=== PATIENT | female | born 1985 | race African-American/Black ===

== ENCOUNTER 2019-05-19 09:11 | Inpatient (IN) | payer OTHER ==
[2019-05-19] MEDS ORDERED: SODIUM CHLORIDE 0.9% 1,000 ML IV STA ×2 (10:27)
[2019-05-19] MEDS ORDERED: methylPREDNISolone SOD SUCCI 125 MG/2 ML VIAL IV STA (10:27)
[2019-05-19] MEDS ORDERED: IPRATROPIUM-ALBUTEROL 3 ML NEB INHALATION STA (10:27)
[2019-05-19] MEDS ORDERED: ACETAMINOPHEN TAB 500 MG TAB PO STA (10:53)
[2019-05-19] MEDS ORDERED: cefTRIAXone IN SWFI 1,000 MG/10 ML SYRINGE IVP STA (10:55)
[2019-05-19] MEDS ORDERED: SODIUM CHLORIDE 0.9% 1,000 ML IV ONE (11:20)
[2019-05-19 11:30] LABS: Basophils # (A) 0.1 k/uL (0-0.2); Basophils % (A) 1 %; Eosinophils # (A) 0.1 k/uL (0-0.7); Eosinophils % (A) 1 %; HCT 38.6 % (34.0-46.0); HGB 12.5 gm/dL (11.4-16.0); Lymphocytes # (A) 1.4 k/uL (1.0-4.8); Lymphocytes % (A) 17 %; MCH 29.2 pg (25.0-35.0); MCHC 32.5 g/dL (31.0-37.0); MCV 89.8 fL (80.0-100.0); Mean Platelet Volume 6.4; Monocytes # (A) 0.6 k/uL (0-1.0); Monocytes % (A) 7 %; Neutrophils # (A) 5.9 k/uL (1.3-7.7); Neutrophils % (A) 72 %; Platelet Count 233 k/uL (150-450); RBC 4.29 m/uL (3.80-5.40); WBC 8.2 k/uL (3.8-10.6)
--- NOTE | 2019-05-19 11:30 | ED ---
General Adult HPI - General Chief complaint: Fever Stated complaint: fever, labored breathing Time Seen by Provider: 05/19/19 10:01 Source: RN notes reviewed, old records reviewed, Caregiver Mode of arrival: ambulatory Limitations: altered mental status - History of Present Illness Initial comments: Patient is a 34-year-old female. She presents emergency department today with her caregivers. She apparently woke up with the Patient had a fever of 104. She lives in a care facility. She has a history of severe cognitive delay. Patient is nonverbal. She's been congested and had a cough since this morning. She does take Clozaril, and her caregiver's report that she does drool often. They report that she's had a history of aspiration pneumonia in the past. Patient has had some labored breathing. Patient is noted to be short of breath with just walking short distances. - Related Data Home Medications Medication Instructions Recorded Confirmed Ammonium Lactate Cream [Lac-Hydrin 1 applic TOPICAL DAILY 05/19/19 05/19/19 12% Cream] Benzoyl Peroxide [Benzac AC Wash] 1 applic TOPICAL DAILY 05/19/19 05/19/19 Benztropine Mesylate [Cogentin] 1 mg PO HS 05/19/19 05/19/19 Cholecalciferol [Vitamin D3 (25 1,000 unit PO DAILY 05/19/19 05/19/19 Mcg = 1000 Iu)] Clindamycin Topical Soln 1 applic TOPICAL BID 05/19/19 05/19/19 [Cleocin-T Topical Soln] Divalproex ER [Depakote ER] 1,000 mg PO HS@2100 05/19/19 05/19/19 Divalproex ER [Depakote ER] 250 mg PO BID@0800,1600 05/19/19 05/19/19 Docusate Sodium [Dok] 100 mg PO DAILY 05/19/19 05/19/19 EPINEPHrine (Auto Inject) [Epipen] 0.3 mg IM ONCE PRN 05/19/19 05/19/19 Furosemide [Lasix] 40 mg PO DAILY 05/19/19 05/19/19 Insulin Glargine [Lantus] 24 unit SQ BID 05/19/19 05/19/19 L.acidoph,Paracasei, B.lactis 1 cap PO DAILY PRN 05/19/19 05/19/19 [Probiotic] LORazepam [Ativan] 0.5 mg PO DAILY@1330 05/19/19 05/19/19 LORazepam [Ativan] 0.5 mg PO Q4H PRN 05/19/19 05/19/19 Loratadine [Claritin] 10 mg PO DAILY 05/19/19 05/19/19 Metoprolol Tartrate [Lopressor] 25 mg PO DAILY 05/19/19 05/19/19 Minocycline HCl [Minocin] 100 mg PO DAILY@1600 05/19/19 05/19/19 Naltrexone HCl [Revia] 100 mg PO HS 05/19/19 05/19/19 Potassium Chloride [Klor-Con 20] 20 meq PO DAILY 05/19/19 05/19/19 Pravastatin Sodium [Pravachol] 40 mg PO HS 05/19/19 05/19/19 Propranolol [Inderal] 20 mg PO BID 05/19/19 05/19/19 cloZAPine [Clozaril] 100 mg PO HS 05/19/19 05/19/19 fluvoxaMINE [Luvox] 50 mg PO HS 05/19/19 05/19/19 medroxyPROGESTERone [Depo-Provera] 150 mg IM Q90D 05/19/19 05/19/19 metFORMIN HCL ER [Glucophage Xr] 500 mg PO AC-BID 05/19/19 05/19/19 sitaGLIPtin [Januvia] 100 mg PO DAILY 05/19/19 05/19/19 Allergies Allergy/AdvReac Type Severity Reaction Status Date / Time shellfish derived [Shellfish] Allergy Anaphylaxis Verified 05/19/19 10:01 Review of Systems ROS Statement: Those systems with pertinent positive or pertinent negative responses have been documented in the HPI. ROS Other: All systems not noted in ROS Statement are negative. Past Medical History Past Medical History: Diabetes Mellitus, Hypertension Additional Past Medical History / Comment(s): Severe interlectual disability History of Any Multi-Drug Resistant Organisms: MRSA Date of last positivie culture/infection: 2018 Additional Past Surgical History / Comment(s): Dental sx, recent boil I/D on left arm poss MRSA Past Psychological History: Bipolar Smoking Status: Never smoker Past Alcohol Use History: None Reported Past Drug Use History: None Reported General Exam - General Exam Comments Initial Comments: Appearing 34-year-old female. Patient is nonverbal. Mouth breathing. Evidence of accessory muscle use. Limitations: altered mental status General appearance: alert, in no apparent distress Head exam: Present: atraumatic, normocephalic, normal inspection Eye exam: Present: normal appearance, PERRL, EOMI. Absent: scleral icterus, conjunctival injection, periorbital swelling ENT exam: Present: normal exam Neck exam: Present: normal inspection. Absent: tenderness, meningismus, lymphadenopathy Respiratory exam: Present: other ( crackles and diminished lung sounds bilaterally.). Absent: normal lung sounds bilaterally, respiratory distress, wheezes, rales, rhonchi, stridor Cardiovascular Exam: Present: regular rate, normal rhythm, normal heart sounds. Absent: systolic murmur, diastolic murmur, rubs, gallop, clicks GI/Abdominal exam: Present: soft, normal bowel sounds. Absent: distended, tenderness, guarding, rebound, rigid Back exam: Present: normal inspection Neurological exam: Present: alert, oriented X3, CN II-XII intact Psychiatric exam: Present: normal affect, normal mood Course Vital Signs 05/19/19 05/19/19 05/19/19 09:21 09:26 10:44 Temperature 99.1 F Pulse Rate 118 H 112 H Respiratory 20 18 Rate Blood Pressure 95/53 O2 Sat by Pulse 93 L Oximetry 05/19/19 05/19/19 05/19/19 11:02 11:35 12:20 Temperature 99.1 F Pulse Rate 104 H 101 H 101 H Respiratory 20 16 Rate Blood Pressure 100/64 109/73 O2 Sat by Pulse 94 L 99 Oximetry Procedures - Sepsis Sepsis Focused Exam #1 Time Sepsis Criteria Met: 13:15 Sepsis Focused Exam Date: 05/19/19 Sepsis Focused Exam Time: 13:16 Sepsis Focused Exam Complete: Yes Vital Signs & RN Notes Reviewed: Yes Capillary Refill: < 2 Seconds: Fingers, Toes Peripheral Pulses: Normal: Posterior Tibialis (R), Posterior Tibialis (L), Dorsalis Pedis (R), Dorsalis Pedis (L) Skin Color: Normal for Patient Respiratory Exam: wheezes, decreased breath sounds Cardiovascular Exam: regular rate, normal rhythm Medical Decision Making - Medical Decision Making Patient's 34-year-old female history developmental delay, is nonverbal. She presents today with her caregivers erythema 104, cough congestion difficulty breathing. She does not have a fever 104 at this morning, and has had evidence of the assistant director of financial aid muscle use of breathing. Patient's low oxygen at 90% on room air earlier today at home. Upon arriving here without oxygen patient's oxygen saturation was 87-88% on room air. She is placed on 4 L nasal cannula does have improvement and is now 99% on room air. She had diminished lung sounds and crackles in bilateral lung [place]. Patient's caregivers she states she has had a history of drooling due to her medications and questions of the last time she was admitted for pneumonia it was related to aspiration. Her influenza test is negative. Patient's labwork was reviewed she has mild leukocytosis. She has an elevated lactic acid of 4.2. She was given 2 L bolus, this is ideal for patient's ideal body weight as Patient does meet sepsis criteria. P Focused sepsis exam was also completed. She was with given 1 g of Rocephin. He went to 3 mm DuoNeb treatments and does have improvement, and has no further accessory muscle use but continues or diminished lung sounds. Discussed the case with Dr. Rubio, and Patient will be admitted. Dr. Fierro was informed of the admission. Patient's givers report the Patient does need to have a sitter as when she becomes healthier and more active she does pull at her IV sites mechanical equipment in the reports the Patient has always had have a sitter when admitted to the hospital. - Lab Data Result diagrams: 05/19/19 11:09 05/19/19 11:09 Lab Results 05/19/19 05/19/19 05/19/19 Range/Units 11:09 11:09 11:09 WBC 8.2 (3.8-10.6) k/uL RBC 4.29 (3.80-5.40) m/uL Hgb 12.5 (11.4-16.0) gm/dL Hct 38.6 (34.0-46.0) % MCV 89.8 (80.0-100.0) fL MCH 29.2 (25.0-35.0) pg MCHC 32.5 (31.0-37.0) g/dL RDW 15.0 (11.5-15.5) % Plt Count 233 (150-450) k/uL Neutrophils % 72 % Lymphocytes % 17 % Monocytes % 7 % Eosinophils % 1 % Basophils % 1 % Neutrophils # 5.9 (1.3-7.7) k/uL Lymphocytes # 1.4 (1.0-4.8) k/uL Monocytes # 0.6 (0-1.0) k/uL Eosinophils # 0.1 (0-0.7) k/uL Basophils # 0.1 (0-0.2) k/uL PT 10.5 (9.0-12.0) sec INR 1.0 (<1.2) APTT 24.9 (22.0-30.0) sec Sodium 140 (137-145) mmol/L Potassium 4.1 (3.5-5.1) mmol/L Chloride 102 (98-107) mmol/L Carbon Dioxide 26 (22-30) mmol/L Anion Gap 12 mmol/L BUN 15 (7-17) mg/dL Creatinine 0.97 (0.52-1.04) mg/dL Est GFR (CKD-EPI)AfAm 90 (>60 ml/min/1.73 sqM) Est GFR (CKD-EPI)NonAf 78 (>60 ml/min/1.73 sqM) Glucose 195 H (74-99) mg/dL Plasma Lactic Acid Anil (0.7-2.0) mmol/L Calcium 9.3 (8.4-10.2) mg/dL Total Bilirubin 0.2 (0.2-1.3) mg/dL AST 17 (14-36) U/L ALT 9 (9-52) U/L Alkaline Phosphatase 60 (38-126) U/L Troponin I (0.000-0.034) ng/mL NT-Pro-B Natriuret Pep pg/mL Total Protein 7.5 (6.3-8.2) g/dL Albumin 3.7 (3.5-5.0) g/dL Urine Color Urine Appearance (Clear) Urine pH (5.0-8.0) Ur Specific Crawford (1.001-1.035) Urine Protein (Negative) Urine Glucose (UA) (Negative) Urine Ketones (Negative) Urine Blood (Negative) Urine Nitrite (Negative) Urine Bilirubin (Negative) Urine Urobilinogen (<2.0) mg/dL Ur Leukocyte Esterase (Negative) Influenza Type A RNA (Not Detectd) Influenza Type B (PCR) (Not Detectd) 05/19/19 05/19/19 05/19/19 Range/Units 11:09 11:09 11:09 WBC (3.8-10.6) k/uL RBC (3.80-5.40) m/uL Hgb (11.4-16.0) gm/dL Hct (34.0-46.0) % MCV (80.0-100.0) fL MCH (25.0-35.0) pg MCHC (31.0-37.0) g/dL RDW (11.5-15.5) % Plt Count (150-450) k/uL Neutrophils % % Lymphocytes % % Monocytes % % Eosinophils % % Basophils % % Neutrophils # (1.3-7.7) k/uL Lymphocytes # (1.0-4.8) k/uL Monocytes # (0-1.0) k/uL Eosinophils # (0-0.7) k/uL Basophils # (0-0.2) k/uL PT (9.0-12.0) sec INR (<1.2) APTT (22.0-30.0) sec Sodium (137-145) mmol/L Potassium (3.5-5.1) mmol/L Chloride (98-107) mmol/L Carbon Dioxide (22-30) mmol/L Anion Gap mmol/L BUN (7-17) mg/dL Creatinine (0.52-1.04) mg/dL Est GFR (CKD-EPI)AfAm (>60 ml/min/1.73 sqM) Est GFR (CKD-EPI)NonAf (>60 ml/min/1.73 sqM) Glucose (74-99) mg/dL Plasma Lactic Acid Anil 4.2 H* (0.7-2.0) mmol/L Calcium (8.4-10.2) mg/dL Total Bilirubin (0.2-1.3) mg/dL AST (14-36) U/L ALT (9-52) U/L Alkaline Phosphatase (38-126) U/L Troponin I <0.012 (0.000-0.034) ng/mL NT-Pro-B Natriuret Pep 340 pg/mL Total Protein (6.3-8.2) g/dL Albumin (3.5-5.0) g/dL Urine Color Urine Appearance (Clear) Urine pH (5.0-8.0) Ur Specific Crawford (1.001-1.035) Urine Protein (Negative) Urine Glucose (UA) (Negative) Urine Ketones (Negative) Urine Blood (Negative) Urine Nitrite (Negative) Urine Bilirubin (Negative) Urine Urobilinogen (<2.0) mg/dL Ur Leukocyte Esterase (Negative) Influenza Type A RNA (Not Detectd) Influenza Type B (PCR) (Not Detectd) 05/19/19 05/19/19 Range/Units 12:00 12:00 WBC (3.8-10.6) k/uL RBC (3.80-5.40) m/uL Hgb (11.4-16.0) gm/dL Hct (34.0-46.0) % MCV (80.0-100.0) fL MCH (25.0-35.0) pg MCHC (31.0-37.0) g/dL RDW (11.5-15.5) % Plt Count (150-450) k/uL Neutrophils % % Lymphocytes % % Monocytes % % Eosinophils % % Basophils % % Neutrophils # (1.3-7.7) k/uL Lymphocytes # (1.0-4.8) k/uL Monocytes # (0-1.0) k/uL Eosinophils # (0-0.7) k/uL Basophils # (0-0.2) k/uL PT (9.0-12.0) sec INR (<1.2) APTT (22.0-30.0) sec Sodium (137-145) mmol/L Potassium (3.5-5.1) mmol/L Chloride (98-107) mmol/L Carbon Dioxide (22-30) mmol/L Anion Gap mmol/L BUN (7-17) mg/dL Creatinine (0.52-1.04) mg/dL Est GFR (CKD-EPI)AfAm (>60 ml/min/1.73 sqM) Est GFR (CKD-EPI)NonAf (>60 ml/min/1.73 sqM) Glucose (74-99) mg/dL Plasma Lactic Acid Anil (0.7-2.0) mmol/L Calcium (8.4-10.2) mg/dL Total Bilirubin (0.2-1.3) mg/dL AST (14-36) U/L ALT (9-52) U/L Alkaline Phosphatase (38-126) U/L Troponin I (0.000-0.034) ng/mL NT-Pro-B Natriuret Pep pg/mL Total Protein (6.3-8.2) g/dL Albumin (3.5-5.0) g/dL Urine Color Light Yellow Urine Appearance Clear (Clear) Urine pH 5.0 (5.0-8.0) Ur Specific [place] 1.008 (1.001-1.035) Urine Protein Negative (Negative) Urine Glucose (UA) Negative (Negative) Urine Ketones Negative (Negative) Urine Blood Negative (Negative) Urine Nitrite Negative (Negative) Urine Bilirubin Negative (Negative) Urine Urobilinogen <2.0 (<2.0) mg/dL Ur Leukocyte Esterase Negative (Negative) Influenza Type A RNA Not Detected (Not Detectd) Influenza Type B (PCR) Not Detected (Not Detectd) 05/19/19 13:42 EKG shows sinus tachycardia, T wave adamantly considered. Ischemia, T-wave adamantly can Center anterolateral ischemia. Abnormal EKG noted. Ventricular rate 105 bpm. Intervals 174 ms. QS duration is 94 ms. - Radiology Data Radiology results: report reviewed Correlate for pneumonia component edema. Cardiac megaly. Follow up recommended. Expiratory rotated exam. Critical Care Time Critical Care Time: Yes Total Critical Care Time: 30 Disposition Clinical Impression: Sepsis, Pneumonia, Developmental delay, profound, Developmental non-verbal disorder Disposition: ADMITTED IP TO THIS [facility] Condition: Stable Is patient prescribed a controlled substance at d/c from ED?: No Referrals: Emeterio Dean MD [Primary Care Provider] - 1-2 days Time of Disposition: 13:42
[2019-05-19 11:37] LABS: Albumin 3.7 g/dL (3.5-5.0); Calcium 9.3 mg/dL (8.4-10.2); Potassium 4.1 mmol/L (3.5-5.1); Total Bilirubin 0.2 mg/dL (0.2-1.3); Total Protein 7.5 g/dL (6.3-8.2)
[2019-05-19 11:52] LABS: Partial Thromboplastin Time 24.9 sec (22.0-30.0); Prothrombin Time 10.5 sec (9.0-12.0)
--- NOTE | 2019-05-19 12:01 | XR ---
EXAMINATION TYPE: XR chest 2V DATE OF EXAM: 05/19/2019 COMPARISON: NONE HISTORY: Difficulty breathing, shortness of breath and fever TECHNIQUE: Frontal and lateral views of the chest are obtained. FINDINGS: Bilateral airspace disease is present. Lung volumes are low and the patient is rotated. No evident pneumothorax or pleural effusion. Heart is enlarged. There are overlying cardiac leads. IMPRESSION: Correlate for pneumonia, pulmonary edema. There is cardiomegaly. Follow-up recommended. Expiratory rotated exam.
[2019-05-19 12:29] LABS: Appearance,Urine Clear (Clear); Bilirubin,Urine Negative (Negative); Blood,Urine Negative (Negative); Color,Urine Light Yellow; Glucose,Urine (UA) Negative (Negative); Ketones,Urine Negative (Negative); Leukocyte Esterase,Urine Negative (Negative); Nitrite,Urine Negative (Negative); Protein,Urine Negative (Negative); Specific Gravity,Urine 1.008 (1.001-1.035); Urobilinogen,Urine <2.0 mg/dL (<2.0)
[2019-05-19] MEDS ORDERED: PNEUMONIA PROTOCOL UTILIZED 1 EACH MISC PO PRN (13:43)
[2019-05-19] MEDS ORDERED: IPRATROPIUM-ALBUTEROL 3 ML NEB INHALATION PRN (13:43)
[2019-05-19] MEDS ORDERED: AZITHROMYCIN 500 MG in SODIUM CHLORIDE 0.9% 250 ML IVPB STA (13:43)
[2019-05-19 17:11] LABS: Glucose,Whole Blood 156 mg/dL (75-99)
[2019-05-19] MEDS ORDERED: LORazepam 0.5 MG TAB PO PRN (18:06)
[2019-05-19 20:07] LABS: Glucose,Whole Blood 224 mg/dL (75-99)
[2019-05-19] MEDS: cloZAPine 100 MG TAB PO SCH (21:20)
[2019-05-19] MEDS: DIVALPROEX ER 500 MG TAB.ER.24H PO SCH (21:20)
[2019-05-19] MEDS: INSULIN DETEMIR (LEVEMIR) 100 UNIT/ML SYR SQ SCH (21:20)
[2019-05-19] MEDS: NALTREXONE HCL 50 MG TAB PO SCH (21:20)
[2019-05-19] MEDS: PRAVASTATIN SODIUM 40 MG TAB PO SCH (21:20)
[2019-05-19] MEDS: BENZTROPINE MESYLATE 1 MG TAB PO SCH (21:20)
[2019-05-19] MEDS: SODIUM CHLORIDE 0.9% 1,000 ML IV SCH (21:27)
[2019-05-19] MEDS: PROPRANOLOL 20 MG TAB PO SCH (21:29)
[2019-05-20] MEDS: SODIUM CHLORIDE 0.9% 1,000 ML IV SCH ×3 (05:40→12:51)
[2019-05-20 06:54] LABS: Glucose,Whole Blood 234 mg/dL (75-99)
[2019-05-20] MEDS: METOPROLOL TARTRATE 25 MG TAB PO SCH (09:05)
[2019-05-20] MEDS: INSULIN DETEMIR (LEVEMIR) 100 UNIT/ML SYR SQ SCH ×2 (09:05→21:20)
[2019-05-20] MEDS: DOCUSATE 100 MG CAP PO SCH (09:05)
[2019-05-20] MEDS: LINAGLIPTIN 5 MG TABLET PO SCH (09:06)
[2019-05-20] MEDS: DIVALPROEX ER 250 MG TAB.ER.24H PO SCH ×2 (09:06→17:22)
[2019-05-20] MEDS: PROPRANOLOL 20 MG TAB PO SCH ×2 (09:06→21:20)
[2019-05-20] MEDS: BENZOYL PEROXIDE TOPICAL SCH (09:06)
[2019-05-20] MEDS: AMMONIUM LACTATE 12% CREAM 140 GM TUBE TOPICAL SCH (10:39)
[2019-05-20 11:47] LABS: Glucose,Whole Blood 200 mg/dL (75-99)
[2019-05-20] MEDS: LORazepam 0.5 MG TAB PO SCH (12:39)
[2019-05-20] MEDS: INSULIN ASPART (NovoLOG) 100 UNIT/ML VIAL SQ SCH ×3 (12:39→21:19)
--- NOTE | 2019-05-20 13:04 | P.HPIM ---
History of Present Illness H&P Date: 05/20/19 Chief Complaint: Fever 104 This is a 34-year-old female patient of Dr. Dean with past medical history of diabetes mellitus type 2, hypertension, autism, OCD, bipolar, severe intellectual disability, history of MRSA. Patient lives at [facility] and has a public guardian. Patient was brought in by her caregivers yesterday to the emergency center because she had a temperature of 104 and some mild labored breathing with increased dyspnea on exertion when she got up yesterday morning. Pulse ox was checked at the care home and was low at 90%. She does have history of aspiration pneumonia in the past. CBC and comp metabolic panel unremarkable. Blood sugar 195, initial lactic acid 4.2, troponin and negative now on 2 draws. Urinalysis clear with nitrate and leukoesterase negative. Influenza testing negative. Repeat lactic acid this morning 1.8. Pulse ox 8788% on room air and patient was placed on 4 L nasal cannula with improvement of her oxygenation to 99%. Temperature was 99.1 with tachycardia and blood pressure 95/53. Chest x-ray correlate for pneumonia, pulmonary edema. There is cardiomegaly. Patient was given 2 L of IV fluid b olus and started on Rocephin, nebulizer treatments. EKG sinus rhythm with nonspecific ST changes for which echocardiogram has been ordered. Blood sugars are elevated and metformin will not be resumed as lactic acid is normalized and insulin long-acting will be increased. There is a consult in place for pulmonary medicine. Blood cultures in process. Sputum cultures been unobtainable. Review of Systems ROS unobtainable: due to mental status Constitutional: Reports fever Past Medical History Past Medical History: Diabetes Mellitus, Hypertension Additional Past Medical History / Comment(s): Autistic, OCD, Bipolar 1, Severe intellectual disability History of Any Multi-Drug Resistant Organisms: None Reported Date of last positivie culture/infection: 2018 Additional Past Surgical History / Comment(s): Dental sx, recent boil I/D to left axilla 03/2019 Past Anesthesia/Blood Transfusion Reactions: No Reported Reaction Past Psychological History: Bipolar Additional Psychological History / Comment(s): Autistic, OCD, Bipolar 1. Patient resides at [facility] and has a public guardian. Smoking Status: Never smoker Past Alcohol Use History: None Reported Past Drug Use History: None Reported - Past Family History Mother Family Medical History: Unable to Obtain Father Family Medical History: Unable to Obtain Medications and Allergies Home Medications Medication Instructions Recorded Confirmed Type Ammonium Lactate Cream [Lac-Hydrin 1 applic TOPICAL DAILY 05/19/19 05/19/19 History 12% Cream] Benzoyl Peroxide [Benzac AC Wash] 1 applic TOPICAL DAILY 05/19/19 05/19/19 History Benztropine Mesylate [Cogentin] 1 mg PO HS 05/19/19 05/19/19 History Cholecalciferol [Vitamin D3 (25 1,000 unit PO DAILY 05/19/19 05/19/19 History Mcg = 1000 Iu)] Clindamycin Topical Soln 1 applic TOPICAL BID 05/19/19 05/19/19 History [Cleocin-T Topical Soln] Divalproex ER [Depakote ER] 1,000 mg PO HS@2100 05/19/19 05/19/19 History Divalproex ER [Depakote ER] 250 mg PO BID@0800,1600 05/19/19 05/19/19 History Docusate Sodium [Dok] 100 mg PO DAILY 05/19/19 05/19/19 History EPINEPHrine (Auto Inject) [Epipen] 0.3 mg IM ONCE PRN 05/19/19 05/19/19 History Furosemide [Lasix] 40 mg PO DAILY 05/19/19 05/19/19 History Insulin Glargine [Lantus] 24 unit SQ BID 05/19/19 05/19/19 History L.acidoph,Paracasei, B.lactis 1 cap PO DAILY PRN 05/19/19 05/19/19 History [Probiotic] LORazepam [Ativan] 0.5 mg PO DAILY@1330 05/19/19 05/19/19 History LORazepam [Ativan] 0.5 mg PO Q4H PRN 05/19/19 05/19/19 History Loratadine [Claritin] 10 mg PO DAILY 05/19/19 05/19/19 History Metoprolol Tartrate [Lopressor] 25 mg PO DAILY 05/19/19 05/19/19 History Minocycline HCl [Minocin] 100 mg PO DAILY@1600 05/19/19 05/19/19 History Naltrexone HCl [Revia] 100 mg PO HS 05/19/19 05/19/19 History Potassium Chloride [Klor-Con 20] 20 meq PO DAILY 05/19/19 05/19/19 History Pravastatin Sodium [Pravachol] 40 mg PO HS 05/19/19 05/19/19 History Propranolol [Inderal] 20 mg PO BID 05/19/19 05/19/19 History cloZAPine [Clozaril] 100 mg PO HS 05/19/19 05/19/19 History fluvoxaMINE [Luvox] 50 mg PO HS 05/19/19 05/19/19 History medroxyPROGESTERone [Depo-Provera] 150 mg IM Q90D 05/19/19 05/19/19 History metFORMIN HCL ER [Glucophage Xr] 500 mg PO AC-BID 05/19/19 05/19/19 History sitaGLIPtin [Januvia] 100 mg PO DAILY 05/19/19 05/19/19 History Allergies Allergy/AdvReac Type Severity Reaction Status Date / Time shellfish derived [Shellfish] Allergy Anaphylaxis Verified 05/19/19 10:01 Physical Exam Vitals: Vital Signs Temp Pulse Pulse Resp BP BP Pulse Ox 05/20/19 05:39 90 L 05/20/19 05:00 98.0 F 101 H 20 117/60 88 L 05/19/19 21:44 98.9 F 107 H 16 119/75 91 L 05/19/19 19:13 92 L 05/19/19 15:55 99.4 F 05/19/19 15:29 92 18 122/79 97 05/19/19 12:20 101 H 16 109/73 99 Intake and Output 05/19/19 05/20/19 05/20/19 22:59 06:59 14:59 Intake Total 2790 800 Balance 2790 800 Intake: Amount of Fluid Infused ( 2200 ml) Intake, IV Titration 800 Amount Sodium Chloride 0.9% 1, 800 000 ml @ 100 mls/hr IV . Q10H [facility] Rx#:[id number] Oral 590 Other: Voiding Method Diaper Diaper Incontinent Incontinent # Voids 2 1 Gen: This is an obese 34-year-old female. She is sitting up in bed with a sitter at the bedside. She appears to be in no acute respiratory distress. Harsh cough is noted. HEENT: Head is atraumatic, normocephalic. Pupils equal, round. Sclerae is anicteric. NECK: Supple. No JVD. No lymphadenopathy. No thyromegaly. LUNGS: Diminished bilaterally with crackles. No intercostal retractions. HEART: Regular rate and rhythm. No murmur. ABDOMEN: Soft. Bowel sounds are present. No masses. No tenderness. EXTREMITIES: 1+ bilateral pedal edema. No calf tenderness. NEUROLOGICAL: Patient is awake, alert. Patient is able to follow simple commands.. Results CBC & Chem 7: 05/19/19 11:09 05/19/19 11:09 Labs: Abnormal Lab Results - Last 24 Hours (Table) 05/19/19 05/19/19 05/19/19 Range/Units 14:00 17:07 18:34 POC Glucose (mg/dL) 156 H (75-99) mg/dL Plasma Lactic Acid Anil 2.6 H* 3.9 H* (0.7-2.0) mmol/L 05/19/19 05/19/19 05/20/19 Range/Units 20:06 22:27 02:23 POC Glucose (mg/dL) 224 H (75-99) mg/dL Plasma Lactic Acid Anil 3.6 H* 2.5 H* (0.7-2.0) mmol/L 05/20/19 05/20/19 Range/Units 06:53 11:46 POC Glucose (mg/dL) 234 H 200 H (75-99) mg/dL Plasma Lactic Acid Anil (0.7-2.0) mmol/L Thrombosis Risk Factor Assmnt - DVT/VTE Prophylaxis DVT/VTE Prophylaxis: Pharmacologic Prophylaxis ordered - Choose All That Apply Any of the Below Risk Factors Present?: Yes Each Factor Represents 1 point: Obesity (BMI >25), Swollen legs (current) Other Risk Factors: No Other congenital or acquired thrombophilia - If yes, enter type in comment: No Thrombosis Risk Factor Assessment Total Risk Factor Score: 2 Thrombosis Risk Factor Assessment Level: Low Risk Assessment and Plan Plan: 1. Pneumonia with sepsis and lactic acidosis. Patient started on ceftriaxone and received 1 dose of azithromycin in the emergency center, continue DuoNeb treatments every 4 hours as needed, consult pulmonary medicine. Decrease IV fluids to 50 mL per hour. 2. Diabetes mellitus type 2, uncontrolled with hyperglycemia secondary to steroids. Metformin may be resumed as lactic acidosis has resolved. Continue Tradjenta 5 mg daily, increase Levemir to 30 units twice daily and add NovoLog scale before meals and at bedtime. 3. Hypertension. Continue Lopressor 25 mg daily, propranolol 20 mg twice daily. 4. Autism, OCD, bipolar, severe intellectual disability. Continue sitter at the bedside. Continue Cogentin 1 mg at bedtime, Depakote ER at home dose, Ativan 0.5 mg daily at 1330 and every 4 hours as needed, naltrexone 100 mg at bedtime, fluvoxamine 50 mg at bedtime. 5. Hyperlipidemia. Continue pravastatin 40 mg at bedtime. 6. DVT prophylaxis. Lovenox. 7. GI prophylaxis. Pepcid. Patient will be admitted to the hospital for a minimum of 2 night stay. Discharge plan: Return to [facility]. Impression and plan of care have been directed as dictated by the signing physician. Eli Brown nurse practitioner acting as scribe for signing physician.
[2019-05-20 16:38] LABS: Glucose,Whole Blood 292 mg/dL (75-99)
[2019-05-20] MEDS: MINOCYCLINE 50 MG CAP PO SCH (17:21)
[2019-05-20] MEDS: metFORMIN 500 MG TAB PO SCH (17:21)
--- NOTE | 2019-05-20 20:55 | CONS ---
CONSULTATION DATE OF CONSULTATION: May 20, 2019 This is a 34-year-old Black female who has severe mental impairment. She apparently lives at an extended care facility. She is apparently accompanied by her caregiver. She apparently noticed one day prior to admission that the patient apparently had some difficulty breathing. She was coughing and had chest congestion. She also had a temperature of 104 degrees. The patient herself is nonverbal. All the history is obtained from the caregiver. In addition, she apparently states that there was another member at the house who was also ill. Anyway, the patient was seen in the emergency room and admitted with a diagnosis of possible aspiration pneumonia. Her primary care provider is Dr. Emeterio Dean. Again, no history can be obtained from the patient herself. She was on oxygen when she first came in. That has been weaned off. She looks relatively comfortable. She was actually sleeping. She was lying on her left side. She appeared to be no distress. There is no audible wheezing or significant cough while I was in the room. MEDICATIONS: Extensive and include Lac-Hydrin lotion, Benzac AC wash, Cogentin, vitamin D3, clindamycin topical solution, Depakote ER, Colace, EpiPen, Lasix, Lantus insulin, probiotic, Ativan, Claritin, metoprolol, Minocin, naltrexone, potassium chloride, pravastatin, propranolol, Clozaril, Luvox, Depo-Provera, metformin and Januvia. ALLERGIES: APPARENTLY SHELLFISH. MEDICAL HISTORY: His medical history is extensive and includes hypertension, diabetes, seizure disorder, severe intellectual disability, previous MRSA infection, multiple boils and infections underneath her arms with previous MRSA infection, bipolar disorder, constipation, anxiety, hypertension, diabetes, and hyperlipidemia. Again, the history may be incomplete as the history is obtained primarily from the ER sobia and also from the caregiver. SURGICAL HISTORY: Includes a dental surgery and incision and drainage of a boil underneath the left arm. SOCIAL HISTORY: Negative tobacco, alcohol or illicit drug use. FAMILY HISTORY: Family history is not known. The patient could not provide anything acute. REVIEW OF SYSTEMS: CONSTITUTIONAL: Fever of 104. NEUROLOGIC negative. HEENT: Drooling. CARDIOVASCULAR negative. PULMONARY: Shortness of breath, cough, chest congestion. GI negative. negative. RHEUMATOLOGIC negative. IMMUNOLOGIC negative. ENDOCRINOLOGIC negative. DERMATOLOGIC negative. PHYSICAL EXAMINATION: VITAL SIGNS: Current vital signs are reviewed. Her temperature is 98, T-max is 99.1. Her heart rate 93, respiratory rate 18, blood pressure 117/65 mean 82. Room air saturation 94%. She appears in no acute distress. There is no audible wheezing or any signs of respiratory distress. HEENT examination is grossly unremarkable. No supplemental oxygen. NECK: Supple. Full range of motion. No adenopathy. CARDIOVASCULAR examination reveals regular rhythm and rate. Heart rate in the high 80s, low 90s. S1, S2 normal. Heart sounds are distant. LUNGS: Reveal some diffuse bilateral rhonchi. No wheezes. A few crackles are appreciated. The patient does not really take deep breaths. Breath sounds are equal bilaterally. ABDOMEN: Obese. Bowel sounds are heard. EXTREMITIES are intact. No significant edema. SKIN: Without rash. NEUROLOGIC: Examination could not be adequately evaluated. LABORATORY DATA: Reviewed. White count 8.2, hemoglobin 12.5, hematocrit 38.6, platelet count 233,000. PT/INR PTT all normal. Sodium 140, potassium 4.1, chloride 102, CO2 26, anion gap is 12, BUN and creatinine were 15 and 0.97. Glucose is 195. Lactic acid is 3.6, Troponins were negative x2. N terminal proBNP is 340. Urine was negative. Influenza screen for both A and B were negative. Chest x-ray is difficult to interpret because the patient's body habitus. There is bilateral airspace disease. Lung volumes are low. There is no evident pneumothorax or pleural effusions. Heart is enlarged. The rest of the examination is really not significant. Again, the quality of the x-ray given her body habitus is poor. Her medications are reviewed. Medications appear to be appropriate. ASSESSMENT: 1. Bilateral pneumonia, which may relate to underlying aspiration. 2. Fever, cough, chest congestion and labored breathing all secondary to #1. 3. History of diabetes mellitus. 4. Hypertension. 5. Hyperlipidemia. 6. History of seizure disorder. 7. Obesity. 8. Significant mental delay/cognitive impairment. 9. Previous history of MRSA infection. 10.Recurrent boils and infection underneath the arm. PLAN: Currently the patient is on appropriate medications. She is already significantly improved. She has been weaned off oxygen. Her saturations are mid 90s. Her chest x- ray does show diffuse bilateral infiltrates. Some of this could relate to body habitus. Cultures are pending. Additional recommendations and suggestions are forthcoming. Medications are reviewed. She seems to be in no respiratory distress at this time. We will continue to follow. MMODL / IJN: [id number] / MTDD
[2019-05-20 21:12] LABS: Glucose,Whole Blood 290 mg/dL (75-99)
[2019-05-20] MEDS: BENZTROPINE MESYLATE 1 MG TAB PO SCH (21:18)
[2019-05-20] MEDS: DIVALPROEX ER 500 MG TAB.ER.24H PO SCH (21:19)
[2019-05-20] MEDS: cloZAPine 100 MG TAB PO SCH (21:19)
[2019-05-20] MEDS: NALTREXONE HCL 50 MG TAB PO SCH (21:20)
[2019-05-20] MEDS: PRAVASTATIN SODIUM 40 MG TAB PO SCH (21:20)
--- NOTE | 2019-05-20 23:08 | XR ---
EXAMINATION TYPE: XR chest 2V DATE OF EXAM: 05/20/2019 COMPARISON: Chest x-ray one day ago. HISTORY: Pneumonia. TECHNIQUE: Frontal and lateral views of the chest are obtained. FINDINGS: There are multifocal bilateral opacities redemonstrated. No large pleural effusion or pne umothorax seen bilaterally. The cardiac silhouette size is stable and mildly enlarged. The osseous structures are intact. IMPRESSION: Mild cardiomegaly with bilateral multifocal multilobar acute infiltrates. No significant change from one day earlier.
[2019-05-21 07:15] LABS: Glucose,Whole Blood 159 mg/dL (75-99)
[2019-05-21] MEDS: INSULIN ASPART (NovoLOG) 100 UNIT/ML VIAL SQ SCH ×4 (08:25→21:19)
[2019-05-21] MEDS: METOPROLOL TARTRATE 25 MG TAB PO SCH (08:25)
[2019-05-21] MEDS: metFORMIN 500 MG TAB PO SCH ×2 (08:25→17:01)
[2019-05-21] MEDS: DOCUSATE 100 MG CAP PO SCH (08:25)
[2019-05-21] MEDS: FAMOTIDINE 20 MG TAB PO SCH (08:25)
[2019-05-21] MEDS: ENOXAPARIN 40 MG/0.4 ML SYRINGE SQ SCH (08:26)
[2019-05-21] MEDS: LINAGLIPTIN 5 MG TABLET PO SCH (08:27)
[2019-05-21] MEDS: PROPRANOLOL 20 MG TAB PO SCH ×2 (08:27→21:17)
[2019-05-21] MEDS: INSULIN DETEMIR (LEVEMIR) 100 UNIT/ML SYR SQ SCH ×2 (08:27→21:19)
[2019-05-21] MEDS: DIVALPROEX ER 250 MG TAB.ER.24H PO SCH ×2 (08:28→17:01)
[2019-05-21] MEDS: BENZOYL PEROXIDE TOPICAL SCH (08:29)
[2019-05-21] MEDS: SODIUM CHLORIDE 0.9% 1,000 ML IV SCH (08:29)
[2019-05-21 08:59] LABS: Basophils % (A) 0 %; Eosinophils # (A) 0.1 k/uL (0-0.7); Eosinophils % (A) 1 %; HCT 33.2 % (34.0-46.0); HGB 10.4 gm/dL (11.4-16.0); Hypochromasia Moderate; Lymphocytes # (A) 2.3 k/uL (1.0-4.8); Lymphocytes % (A) 26 %; MCHC 31.2 g/dL (31.0-37.0); MCV 92.8 fL (80.0-100.0); Mean Platelet Volume 6.3; Monocytes # (A) 0.4 k/uL (0-1.0); Monocytes % (A) 4 %; Neutrophils % (A) 67 %; Platelet Count 219 k/uL (150-450); RBC 3.58 m/uL (3.80-5.40)
[2019-05-21] MEDS: AMMONIUM LACTATE 12% CREAM 140 GM TUBE TOPICAL SCH (10:40)
--- NOTE | 2019-05-21 11:33 | ECHOF ---
Referral Reason:LVF MEASUREMENTS -------- HEIGHT: 172.7 cm WEIGHT: 98.4 kg BP: 117/60 RVIDd: 2.7 cm (< 3.3) IVSd: 1.3 cm (0.6 - 1.1) LVIDd: 4.1 cm (3.9 - 5.3) LVPWd: 1.3 cm (0.6 - 1.1) IVSs: 1.6 cm LVIDs: 2.9 cm LVPWs: 1.6 cm LA Diam: 3.3 cm (2.7 - 3.8) Ao Diam: 2.9 cm (2.0 - 3.7) AV Cusp: 2.0 cm (1.5 - 2.6) MV EXCURSION: 15.892 mm (> 18.000) MV EF SLOPE: 62 mm/s (70 - 150) EPSS: 0.8 cm MV E George: 1.29 m/s MV DecT: 185 ms MV A George: 1.16 m/s MV E/A Ratio: 1.11 FINDINGS -------- Sinus rhythm. This was a technically adequate study. The left ventricular size is normal. There is mild concentric left ventricular hypertrophy. Overa ll left ventricular systolic function is normal with, an EF between 60 - 65 %. The diastolic fillin g pattern is normal for the age of the patient 13.82. The right ventricle is normal in size. Normal LA size by volume 22+/-6 ml/m2. The right atrium is normal in size. The aortic valve is trileaflet and appears structurally normal. The mitral valve is normal. Trace tricuspid regurgitation present. The pulmonic valve was not well visualized. The aortic root size is normal. Normal inferior vena cava with normal inspiratory collapse consistent with estimated right atrial pre ssure of 5 mmHg. There is no pericardial effusion. CONCLUSIONS -------- 1. Sinus rhythm. 2. This was a technically adequate study. 3. The left ventricular size is normal. 4. There is mild concentric left ventricular hypertrophy. 5. Overall left ventricular systolic function is normal with, an EF between 60 - 65 %. 6. The diastolic filling pattern is normal for the age of the patient 13.82 7. The right ventricle is normal in size. 8. Normal LA size by volume 22+/-6 ml/m2. 9. The right atrium is normal in size. 10. The aortic valve is trileaflet and appears structurally normal. 11. The mitral valve is normal. 12. Trace tricuspid regurgitation present. 13. The pulmonic valve was not well visualized. 14. The aortic root size is normal. 15. Normal inferior vena cava with normal inspiratory collapse consistent with estimated right atrial pressure of 5 mmHg. 16. There is no pericardial effusion. HEALTH AND SAFETY COORDINATOR: CESAR Nazario
[2019-05-21 11:49] LABS: Glucose,Whole Blood 114 mg/dL (75-99)
--- NOTE | 2019-05-21 12:00 | P.PN ---
Subjective Progress Note Date: 05/21/19 Principal diagnosis: Bilateral pneumonia possibly aspiration. Patient is seen today 05/21/2019 in follow-up on the regular medical floor. She does open her eyes to questioning but remains nonverbal. She continues with a loose nonproductive cough. She is maintaining O2 saturation low 90s on room air. Currently afebrile. Hemodynamically stable. Blood culture reveals no kathie wth to date. White count 9.0. Hemoglobin 10.4. She is currently on ceftriaxone, minocycline. Add azithromycin. Objective - Vital Signs Vital signs: Vital Signs Temp 98.9 F 05/21/19 05:00 Pulse 91 05/20/19 20:55 Resp 16 05/21/19 05:00 BP 120/62 05/21/19 05:00 Pulse Ox 92 L 05/21/19 05:00 Intake & Output 05/20/19 05/21/19 05/21/19 18:59 06:59 18:59 Intake Total 575 Balance 575 Intake: Intake, IV Titration 575 Amount Sodium Chloride 0.9% 1, 575 000 ml @ 50 mls/hr IV . Q20H [facility] Rx#:[id number] Other: Voiding Method Diaper Diaper Diaper Incontinent Incontinent Incontinent # Voids 3 # Bowel Movements 1 - Exam GENERAL EXAM: Alert, nonverbal 34-year-old female patient, comfortable in no apparent distress. On room air. HEAD: Normocephalic. EYES: Normal reaction of pupils, equal size. NOSE: Clear with pink turbinates. THROAT: No erythema or exudates. NECK: No masses, no JVD. CHEST: No chest wall deformity. LUNGS: Equal air entry with bilateral scattered rhonchi. CVS: S1 and S2 normal with no audible murmur, regular rhythm. ABDOMEN: No hepatosplenomegaly, normal bowel sounds, no guarding or rigidity. SPINE: No scoliosis or deformity SKIN: No rashes CENTRAL NERVOUS SYSTEM: Tone is normal in all 4 extremities. EXTREMITIES: There is no peripheral edema. No clubbing, no cyanosis. Perip heral pulses are intact. - Labs CBC & Chem 7: 05/21/19 08:33 05/19/19 11:09 Labs: Abnormal Lab Results - Last 24 Hours (Table) 05/20/19 05/20/19 05/21/19 Range/Units 16:37 21:00 07:12 RBC (3.80-5.40) m/uL Hgb (11.4-16.0) gm/dL Hct (34.0-46.0) % POC Glucose (mg/dL) 292 H 290 H 159 H (75-99) mg/dL 05/21/19 05/21/19 Range/Units 08:33 11:48 RBC 3.58 L (3.80-5.40) m/uL Hgb 10.4 L (11.4-16.0) gm/dL Hct 33.2 L (34.0-46.0) % POC Glucose (mg/dL) 114 H (75-99) mg/dL Microbiology - Last 24 Hours (Table) 05/19/19 11:09 Blood Culture - Preliminary Blood No Growth after 24 hours Assessment and Plan Assessment: Impression: #1 Acute bilateral pneumonia, suspect community-acquired versus aspiration. #2 Febrile illness secondary to above, recovered. #3 Diabetes mellitus #4 Hypertension. #5 Hyperlipidemia. #6 History of seizure disorder. #7 Obesity. #8 History of autism, bipolar disorder, severe intellectual disability. Nonverbal. #9 History of previous MRSA infection. #10 Recurrent boils and infections under the arms. Plan: The patient was seen and evaluated by Dr. Watt. Chest x-ray and labs reviewed. She is on ceftriaxone and minocycline. We'll add azithromycin. Aspiration precautions. Sputum culture if possible. We will continue to follow and make further recommendations based on her clinical status. I, the cosigning physician, performed a history & physical examination of the patient. Lungs sounds with bilateral scattered rhonchi Maintaining good O2 saturations in the 90s on room air. I discussed the assessment and plan of care with my nurse practitioner, Anabella Harry. I attest to the above note as dictated by her.
[2019-05-21] MEDS: LORazepam 0.5 MG TAB PO SCH (12:39)
[2019-05-21] MEDS: AZITHROMYCIN 500 MG TAB PO SCH (12:39)
[2019-05-21] MEDS: ACETAMINOPHEN TAB 325 MG TAB PO PRN ×2 (12:44→17:01)
--- NOTE | 2019-05-21 15:12 | P.PN ---
Subjective Progress Note Date: 05/21/19 This is a 34-year-old female patient of Dr. Dean with past medical history of diabetes mellitus type 2, hypertension, autism, OCD, bipolar, severe intellectual disability, history of MRSA. Patient lives at [facility] and has a public guardian. Patient was brought in by her caregivers yesterday to the emergency center because she had a temperature of 104 and some mild labored breathing with increased dyspnea on exertion when she got up yesterday morning. Pulse ox was checked at the [facility] and was low at 90%. She does have history of aspiration pneumonia in the past. CBC and comp metabolic panel unremarkable. Blood sugar 195, initial lactic acid 4.2, troponin and negative now on 2 draws. Urinalysis clear with nitrate and leukoesterase negative. Influenza testing negative. Repeat lactic acid this morning 1.8. Pulse ox 8788% on room air and patient was placed on 4 L nasal cannula with improvement of her oxygenation to 99%. Temperature was 99.1 with tachycardia and blood pressure 95/53. Chest x-ray correlate for pneumonia, pulmonary edema. There is cardiomegaly. Patient was given 2 L of IV fluid bolus and started on Rocephin, nebulizer treatments. EKG sinus rhythm with nonspecific ST changes for which echocardiogram has been ordered. Blood sugars are elevated and metformin will not be resumed as lactic acid is normalized and insulin long-acting will be increased. There is a consult in place for pulmonary medicine. Blood cultures in process. Sputum cultures been unobtainable. 05/21: Repeat chest x-ray reveals mild cardiomegaly with bilateral multifocal multilobar acute infiltrates. No significant change from yesterday. Patient has been seen by Dr. Watt. Pulse ox is 92-94% on room air, blood pressure 120/62 and heart rate 91. Temperature max 102.5. Blood sugars this morning 159-290. WBC 9.0, hemoglobin 10.4. Repeat troponin was negative. Echocardiogram reveals EF of 60-65%, trace tricuspid regurgitation. Blood culture no growth at 48 hours. Patient is found resting with blanket over her head. She does not appear to be in any respiratory distress. We will add in mycoplasma pneumoniae and Legionella testing. IV fluids will be discontinued. Review of Systems ROS unobtainable: due to mental status Constitutional: Reports fever Objective - Vital Signs Vital signs: Vital Signs Temp 98.9 F 05/21/19 05:00 Pulse 91 05/20/19 20:55 Resp 16 05/21/19 05:00 BP 120/62 05/21/19 05:00 Pulse Ox 92 L 05/21/19 05:00 Intake & Output 05/20/19 05/21/19 05/21/19 18:59 06:59 18:59 Intake Total 575 Balance 575 Intake: Intake, IV Titration 575 Amount Sodium Chloride 0.9% 1, 575 000 ml @ 50 mls/hr IV . Q20H [facility] Rx#:[id number] Other: Voiding Method Diaper Diaper Incontinent Incontinent # Voids 3 # Bowel Movements 1 - Exam Gen: This is an obese 34-year-old female. She is in bed with a sitter at the bedside. She appears to be in no acute respiratory distress. HEENT: Head is atraumatic, normocephalic. Pupils equal, round. Sclerae is anicteric. NECK: Supple. No JVD. No lymphadenopathy. No thyromegaly. LUNGS: Diminished bilaterally with crackles. No intercostal retractions. HEART: Regular rate and rhythm. No murmur. ABDOMEN: Soft. Bowel sounds are present. No masses. No tenderness. EXTREMITIES: 1+ bilateral pedal edema. No calf tenderness. NEUROLOGICAL: Patient is awake, alert. Patient is able to follow simple commands.. - Labs CBC & Chem 7: 05/21/19 08:33 05/19/19 11:09 Labs: Abnormal Lab Results - Last 24 Hours (Table) 05/20/19 05/20/19 05/20/19 Range/Units 11:46 16:37 21:00 RBC (3.80-5.40) m/uL Hgb (11.4-16.0) gm/dL Hct (34.0-46.0) % POC Glucose (mg/dL) 200 H 292 H 290 H (75-99) mg/dL 05/21/19 05/21/19 Range/Units 07:12 08:33 RBC 3.58 L (3.80-5.40) m/uL Hgb 10.4 L (11.4-16.0) gm/dL Hct 33.2 L (34.0-46.0) % POC Glucose (mg/dL) 159 H (75-99) mg/dL Microbiology - Last 24 Hours (Table) 05/19/19 11:09 Blood Culture - Preliminary Blood No Growth after 24 hours Assessment and Plan Plan: 1. Pneumonia with sepsis and lactic acidosis. Patient started on ceftriaxone and received 1 dose of azithromycin in the emergency center, continue DuoNeb treatments every 4 hours as needed, consult pulmonary medicine. Discontinue IV fluids. Tylenol for fever. 2. Diabetes mellitus type 2, uncontrolled with hyperglycemia secondary to steroids. Metformin may be resumed as lactic acidosis has resolved. Continue Tradjenta 5 mg daily, increase Levemir to 30 units twice daily and add NovoLog scale before meals and at bedtime. 3. Hypertension. Continue Lopressor 25 mg daily, propranolol 20 mg twice daily. 4. Autism, OCD, bipolar, severe intellectual disability. Continue sitter at the bedside. Continue Cogentin 1 mg at bedtime, Depakote ER at home dose, Ativan 0.5 mg daily at 1330 and every 4 hours as needed, naltrexone 100 mg at bedtime, fluvoxamine 50 mg at bedtime. 5. Hyperlipidemia. Continue pravastatin 40 mg at bedtime. 6. DVT prophylaxis. Lovenox. 7. GI prophylaxis. Pepcid. Discharge plan: Return to [facility]. Impression and plan of care have been directed as dictated by the signing physician. Eli Brown nurse practitioner acting as scribe for signing phys zachary.
[2019-05-21] MEDS: MINOCYCLINE 50 MG CAP PO SCH (17:01)
[2019-05-21 17:26] LABS: Glucose,Whole Blood 90 mg/dL (75-99)
[2019-05-21 20:02] LABS: Glucose,Whole Blood 218 mg/dL (75-99)
[2019-05-21] MEDS: cloZAPine 100 MG TAB PO SCH (21:18)
[2019-05-21] MEDS: BENZTROPINE MESYLATE 1 MG TAB PO SCH (21:18)
[2019-05-21] MEDS: NALTREXONE HCL 50 MG TAB PO SCH (21:18)
[2019-05-21] MEDS: PRAVASTATIN SODIUM 40 MG TAB PO SCH (21:18)
[2019-05-21] MEDS: DIVALPROEX ER 500 MG TAB.ER.24H PO SCH (21:18)
[2019-05-22 07:13] LABS: Glucose,Whole Blood 131 mg/dL (75-99)
[2019-05-22] MEDS: BENZOYL PEROXIDE TOPICAL SCH (07:23)
[2019-05-22] MEDS: INSULIN ASPART (NovoLOG) 100 UNIT/ML VIAL SQ SCH ×4 (08:01→22:20)
[2019-05-22] MEDS: DIVALPROEX ER 250 MG TAB.ER.24H PO SCH ×2 (08:55→16:41)
[2019-05-22] MEDS: metFORMIN 500 MG TAB PO SCH ×2 (08:55→16:41)
--- NOTE | 2019-05-22 09:35 | XR ---
EXAMINATION TYPE: XR chest 1V portable DATE OF EXAM: 05/22/2019 COMPARISON: 05/20/2019 HISTORY: Shortness of breath TECHNIQUE: Single frontal view of the chest is obtained. FINDINGS: There is complete opacification left hemithorax. Subsegmental changes on the right are not ed with interstitial pattern. Bilateral pleural effusions. IMPRESSION: 1. Interval marked worsening appearance of the chest with complete opacification left hemithorax. Cor relate for mucous plug or endobronchial lesion. Progressive consolidation or pleural effusion also th e differential diagnosis.
[2019-05-22] MEDS: PROPRANOLOL 20 MG TAB PO SCH ×2 (09:48→20:57)
[2019-05-22] MEDS: AZITHROMYCIN 500 MG TAB PO SCH (09:48)
[2019-05-22] MEDS: CEFDINIR 300 MG CAP PO SCH ×2 (09:48→20:57)
[2019-05-22] MEDS: FAMOTIDINE 20 MG TAB PO SCH (09:49)
[2019-05-22] MEDS: LINAGLIPTIN 5 MG TABLET PO SCH (09:49)
[2019-05-22] MEDS: METOPROLOL TARTRATE 25 MG TAB PO SCH (09:49)
[2019-05-22] MEDS: DOCUSATE 100 MG CAP PO SCH (09:50)
[2019-05-22] MEDS: ENOXAPARIN 40 MG/0.4 ML SYRINGE SQ SCH (09:50)
[2019-05-22] MEDS: INSULIN DETEMIR (LEVEMIR) 100 UNIT/ML SYR SQ SCH ×2 (09:51→22:20)
[2019-05-22] MEDS ORDERED: IPRATROPIUM-ALBUTEROL 3 ML NEB INHALATION PRN (10:06)
[2019-05-22] MEDS: AMMONIUM LACTATE 12% CREAM 140 GM TUBE TOPICAL SCH (10:41)
[2019-05-22 11:33] LABS: Glucose,Whole Blood 164 mg/dL (75-99)
--- NOTE | 2019-05-22 11:55 | P.PN ---
Subjective Progress Note Date: 05/22/19 Principal diagnosis: Bilateral pneumonia possibly related to aspiration On 05/22/2019 patient seen in follow-up on medical surgical floor. She is awake today, does not appear to be in any acute distress, she is currently on 2 L of oxygen with a pulse ox of 91%, she was febrile earlier this morning with a temp of 100.2F, decreased breath sounds on the left side, and today's chest x- ray shows up with opacification of the left hemithorax likely related to mucous plugging. Patient had already eaten breakfast today, does have occasional congestive cough, but not bringing up much sputum, patient will likely need bronchoscopy tomorrow, we'll obtain consent from the legal guardian, currently patient does not seem to be in any acute respiratory distress, she needs aggressive pulmonary toileting, and chest physiotherapy. Objective - Vital Signs Vital signs: Vital Signs Temp 98.7 F 05/22/19 11:24 Pulse 86 05/22/19 11:24 Resp 24 05/22/19 11:24 BP 122/57 05/22/19 11:24 Pulse Ox 91 L 05/22/19 11:24 Intake & Output 05/21/19 05/22/19 05/22/19 18:59 06:59 18:59 Intake Total 50 590 Balance 50 590 Intake: Intake, IV Titration 50 Amount cefTRIAXone 1 gm In 50 Sodium Chloride 0.9% 50 ml @ 100 mls/hr IVPB Q24HR [facility] Rx#:[id number] Oral 590 Other: Voiding Method Diaper Diaper Diaper Incontinent Incontinent Incontinent # Voids 2 - Exam GENERAL EXAM: Alert, pleasant, 34-year-old -[place] female, nonverbal, comfortable in no apparent distress. HEAD: Normocephalic/atraumatic. EYES: Normal reaction of pupils, equal size. Conjunctiva pink, sclera white. NOSE: Clear with pink turbinates. THROAT: No erythema or exudates. NECK: No masses, no JVD, no thyroid enlargement, no adenopathy. CHEST: No chest wall deformity. Symmetrical expansion. LUNGS: Equal air entry with decreased breath sounds on the left, patient has occasional congested nonproductive cough CVS: Regular rate and rhythm, normal S1 and S2, no gallops, no murmurs, no rubs ABDOMEN: Soft, nontender. No hepatosplenomegaly, normal bowel sounds, no guarding or rigidity. EXTREMITIES: No clubbing, no edema, no cyanosis, 2+ pulses and upper and lower extremities. MUSCULOSKELETAL: Muscle strength and tone normal. SPINE: No scoliosis or deformity SKIN: No rashes CENTRAL NERVOUS SYSTEM: Alert, unable to assess orientation as the patient is nonverbal. No focal deficits, tone is normal in all 4 extremities. - Labs CBC & Chem 7: 05/21/19 08:33 05/19/19 11:09 Labs: Abnormal Lab Results - Last 24 Hours (Table) 05/21/19 05/21/19 05/22/19 Range/Units 11:48 20:01 07:12 POC Glucose (mg/dL) 114 H 218 H 131 H (75-99) mg/dL 05/22/19 Range/Units 11:31 POC Glucose (mg/dL) 164 H (75-99) mg/dL Microbiology - Last 24 Hours (Table) 05/19/19 11:09 Blood Culture - Preliminary Blood No Growth after 48 hours Assessment and Plan Plan: Assessment: #1. Acute bilateral pneumonia, suspect community-acquired versus aspiration. #2. Complete opacification of the left hemithorax likely related to mucous plugging, we will set up the patient for bronchoscopy and BAL tomorrow on 05/22/2019 #3. Febrile illness secondary to above, recovered. #4. Diabetes mellitus #5. Hypertension. #6. Hyperlipidemia. #7. History of seizure disorder. #8. Obesity. #9. History of autism, bipolar disorder, severe intellectual disability. Nonverbal. #10. History of previous MRSA infection. #11. Recurrent boils and infections under the arms. Plan: Continue current antibiotic coverage, we discussed the possibility of adding the patient to this afternoon schedule with anesthesia however unfortunate patient had eaten breakfast, and she would have to be nothing by mouth for at least 8 hours for the procedure. We can resume oral feedings at this time, but patient will be nothing by mouth after midnight, we will need consent from legal guardian for bronchoscopy and BAL tomorrow on 05/23/[address] Watt. Chest physiotherapy every 4 hours, encourage deep breathing and coughing, continue breathing treatments, continue close monitoring for any signs of respiratory difficulty, desaturation. Follow-up chest x-ray tomorrow I performed a history & physical examination of the patient and discussed their management with my nurse practitioner, Spring Kothari. I reviewed the nurse practitioner's note and agree with the documented findings and plan of care. Lung sounds are positive for diminished breath sounds over left lung. The findings and the impression was discussed with the patient. I attest to the doc umentation by the nurse practitioner. Time with Patient: Less than 30
[2019-05-22] MEDS: IPRATROPIUM-ALBUTEROL 3 ML NEB INHALATION SCH ×3 (12:08→20:38)
[2019-05-22] MEDS: LORazepam 0.5 MG TAB PO SCH (12:45)
--- NOTE | 2019-05-22 13:37 | XR ---
EXAMINATION TYPE: XR KUB portable DATE OF EXAM: 05/22/2019 1:21 PM CLINICAL HISTORY: Félix distention TECHNIQUE: Single supine KUB image of the abdomen is obtained. COMPARISON: None. FINDINGS: There is extensive retained fecal debris throughout the colon with a nonspecific gas patter n. There is complete opacification left hemithorax and right lower lobe consolidation. Osseous structures grossly intact. Calcifications in the pelvis are nonspecific. Hypertrophic changes of the acetabulum can be associated with femoral acetabular impingement. IMPRESSION: 1. Nonspecific abdomen correlate for constipation. 2. Bilateral lung consolidation greater on the left.
--- NOTE | 2019-05-22 15:15 | P.PN ---
Subjective Progress Note Date: 05/22/19 This is a 34-year-old female patient of Dr. Dean with past medical history of diabetes mellitus type 2, hypertension, autism, OCD, bipolar, severe intellectual disability, history of MRSA. Patient lives at [facility] and has a public guardian. Patient was brought in by her caregivers yesterday to the emergency center because she had a temperature of 104 and some mild labored breathing with increased dyspnea on exertion when she got up yesterday morning. Pulse ox was checked at the [facility] and was low at 90%. She does have history of aspiration pneumonia in the past. CBC and comp metabolic panel unremarkable. Blood sugar 195, initial lactic acid 4.2, troponin and negative now on 2 draws. Urinalysis clear with nitrate and leukoesterase negative. Influenza testing negative. Repeat lactic acid this morning 1.8. Pulse ox 8788% on room air and patient was placed on 4 L nasal cannula with improvement of her oxygenation to 99%. Temperature was 99.1 with tachycardia and blood pressure 95/53. Chest x-ray correlate for pneumonia, pulmonary edema. There is cardiomegaly. Patient was given 2 L of IV fluid bolus and started on Rocephin, nebulizer treatments. EKG sinus rhythm with nonspecific ST changes for which echocardiogram has been ordered. Blood sugars are elevated and metformin will not be resumed as lactic acid is normalized and insulin long-acting will be increased. There is a consult in place for pulmonary medicine. Blood cultures in process. Sputum cultures been unobtainable. 05/21: Repeat chest x-ray reveals mild cardiomegaly with bilateral multifocal multilobar acute infiltrates. No significant change from yesterday. Patient has been seen by Dr. Watt. Pulse ox is 92-94% on room air, blood pressure 120/62 and heart rate 91. Temperature max 102.5. Blood sugars this morning 159-290. WBC 9.0, hemoglobin 10.4. Repeat troponin was negative. Echocardiogram reveals EF of 60-65%, trace tricuspid regurgitation. Blood culture no growth at 48 hours. Patient is found resting with blanket over her head. She does not appear to be in any respiratory distress. We will add in mycoplasma pneumoniae and Legionella testing. IV fluids will be discontinued. 05/22: Repeat chest x-ray this morning revealed opacities occasional left adriana- thorax. She is scheduled for bronchoscopy for tomorrow with Dr. Watt. We will hold Lovenox in anticipation of bronchoscopy. Patient is also noted to have abdominal distention for which KUB will be ordered. Her last bowel movement was on the evening of May 20. A speech therapy consult has been added. Legionella and mycoplasma are pending. The patient is currently on azithromycin and Omnicef. Blood cultures no growth at 72 hours. Review of Systems ROS unobtainable: due to mental status Objective - Vital Signs Vital signs: Vital Signs Temp 99.5 F 05/22/19 12:27 Pulse 86 05/22/19 12:27 Resp 22 05/22/19 12:27 BP 126/77 05/22/19 12:27 Pulse Ox 93 L 05/22/19 12:27 Intake & Output 05/21/19 05/22/19 05/22/19 18:59 06:59 18:59 Intake Total 50 590 Balance 50 590 Intake: Intake, IV Titration 50 Amount cefTRIAXone 1 gm In 50 Sodium Chloride 0.9% 50 ml @ 100 mls/hr IVPB Q24HR [facility] Rx#:[id number] Oral 590 Other: Voiding Method Diaper Diaper Diaper Incontinent Incontinent Incontinent # Voids 2 - Exam Gen: This is an obese 34-year-old female. She is in bed with a sitter at the bedside. She appears to be in no acute respiratory distress. HEENT: Head is atraumatic, normocephalic. Pupils equal, round. Sclerae is anicteric. NECK: Supple. No JVD. No lymphadenopathy. No thyromegaly. LUNGS: Diminished bilaterally with crackles. No intercostal retractions. HEART: Regular rate and rhythm. No murmur. ABDOMEN: Soft. Bowel sounds are present. No masses. No tenderness. EXTREMITIES: 1+ bilateral pedal edema. No calf tenderness. NEUROLOGICAL: Patient is awake, alert. Patient is able to follow simple commands.. - Labs CBC & Chem 7: 05/21/19 08:33 05/19/19 11:09 Labs: Abnormal Lab Results - Last 24 Hours (Table) 05/21/19 05/22/19 05/22/19 Range/Units 20:01 07:12 11:31 POC Glucose (mg/dL) 218 H 131 H 164 H (75-99) mg/dL Microbiology - Last 24 Hours (Table) 05/19/19 11:09 Blood Culture - Preliminary Blood No Growth after 48 hours Assessment and Plan Plan: 1. Pneumonia with sepsis and lactic acidosis. Continue azithromycin, Omnicef, DuoNeb treatments every 4 hours as needed, consult pulmonary medicine. Discontinue IV fluids. Tylenol for fever. Bronchoscopy scheduled for tomorrow. Lovenox placed on hold. Speech therapy consult. 2. Diabetes mellitus type 2, uncontrolled with hyperglycemia secondary to steroids. Metformin may be resumed as lactic acidosis has resolved. Continue Tradjenta 5 mg daily, increase Levemir to 30 units twice daily and add NovoLog scale before meals and at bedtime. 3. Hypertension. Continue Lopressor 25 mg daily, propranolol 20 mg twice daily. 4. Autism, OCD, bipolar, severe intellectual disability. Continue sitter at the bedside. Continue Cogentin 1 mg at bedtime, Depakote ER at home dose, Ati van 0.5 mg daily at 1330 and every 4 hours as needed, naltrexone 100 mg at bedtime, fluvoxamine 50 mg at bedtime. 5. Hyperlipidemia. Continue pravastatin 40 mg at bedtime. 6. DVT prophylaxis. Lovenox. 7. GI prophylaxis. Pepcid. 8. Abdominal distention. Abdominal x-ray ordered Discharge plan: Return to [facility]. Impression and plan of care have been directed as dictated by the signing physician. Eli Brown nurse practitioner acting as scribe for signing physician.
[2019-05-22] MEDS: MINOCYCLINE 50 MG CAP PO SCH (16:41)
[2019-05-22 16:56] LABS: Glucose,Whole Blood 159 mg/dL (75-99)
[2019-05-22 20:03] LABS: Glucose,Whole Blood 179 mg/dL (75-99)
[2019-05-22] MEDS: PRAVASTATIN SODIUM 40 MG TAB PO SCH (20:57)
[2019-05-22] MEDS: NALTREXONE HCL 50 MG TAB PO SCH (20:57)
[2019-05-22] MEDS: cloZAPine 100 MG TAB PO SCH (20:57)
[2019-05-22] MEDS: DIVALPROEX ER 500 MG TAB.ER.24H PO SCH (20:57)
[2019-05-22] MEDS: BENZTROPINE MESYLATE 1 MG TAB PO SCH (20:57)
[2019-05-23 07:05] LABS: Glucose,Whole Blood 117 mg/dL (75-99)
[2019-05-23 07:10] LABS: Mycoplasma IgM Antibody 0.77 INDEX (<=0.90)
[2019-05-23] MEDS: INSULIN ASPART (NovoLOG) 100 UNIT/ML VIAL SQ SCH ×4 (07:26→21:11)
[2019-05-23] MEDS: DOCUSATE 100 MG CAP PO SCH (07:26)
[2019-05-23] MEDS: BENZOYL PEROXIDE TOPICAL SCH (07:26)
[2019-05-23] MEDS: FAMOTIDINE 20 MG TAB PO SCH (07:27)
[2019-05-23] MEDS: INSULIN DETEMIR (LEVEMIR) 100 UNIT/ML SYR SQ SCH ×2 (07:27→21:12)
[2019-05-23 07:50] LABS: HCT 32.4 % (34.0-46.0); HGB 10.4 gm/dL (11.4-16.0); MCH 28.9 pg (25.0-35.0); MCHC 32.1 g/dL (31.0-37.0); Mean Platelet Volume 6.4; Platelet Count 211 k/uL (150-450); RDW 15.2 % (11.5-15.5); WBC 6.3 k/uL (3.8-10.6)
[2019-05-23 07:58] LABS: African American GFR (CKD) >90 (>60 ml/min/1.73 sqM); Anion Gap 6 mmol/L; Blood Urea Nitrogen 10 mg/dL (7-17); Calcium 8.6 mg/dL (8.4-10.2); Carbon Dioxide 30 mmol/L (22-30); Chloride 108 mmol/L (98-107); Glucose 127 mg/dL (74-99); Potassium 4.2 mmol/L (3.5-5.1); Sodium 144 mmol/L (137-145)
[2019-05-23 08:04] LABS: HCG,Qualitative Serum Not Detected
[2019-05-23] MEDS: DIVALPROEX ER 250 MG TAB.ER.24H PO SCH ×2 (08:27→15:18)
[2019-05-23] MEDS: METOPROLOL TARTRATE 25 MG TAB PO SCH (08:27)
[2019-05-23] MEDS: CEFDINIR 300 MG CAP PO SCH ×2 (08:28→21:10)
[2019-05-23] MEDS: LINAGLIPTIN 5 MG TABLET PO SCH (08:28)
[2019-05-23] MEDS: metFORMIN 500 MG TAB PO SCH ×2 (08:29→17:36)
[2019-05-23] MEDS: IPRATROPIUM-ALBUTEROL 3 ML NEB INHALATION SCH ×4 (08:29→20:53)
[2019-05-23] MEDS: PROPRANOLOL 20 MG TAB PO SCH ×2 (08:29→21:10)
[2019-05-23] MEDS: AZITHROMYCIN 500 MG TAB PO SCH (08:30)
[2019-05-23] MEDS: AMMONIUM LACTATE 12% CREAM 140 GM TUBE TOPICAL SCH (08:30)
--- NOTE | 2019-05-23 10:10 | XR ---
EXAMINATION TYPE: XR chest 1V portable DATE OF EXAM: 05/23/2019 COMPARISON: 05/22/2019 HISTORY: Shortness of breath TECHNIQUE: Single frontal view of the chest is obtained. FINDINGS: There is improved aeration on the left but there is now is increasing infiltrate on the ri ght. Diffuse bilateral consolidation and pleural effusion suspected. Heart enlarged. No pneumothorax. IMPRESSION: Bilateral diffuse pleural-parenchymal disease were seen on the right and slightly improv ed on the left. Correlate for CHF, diffuse pneumonia or ARDS.
[2019-05-23] MEDS ORDERED: PROPOFOL 10 MG/ML 20 ML VIAL IV ONE (11:01)
[2019-05-23] MEDS ORDERED: GLYCOPYRROLATE 0.2 MG/ML 2 ML VIAL ONE (11:01)
[2019-05-23] MEDS ORDERED: LIDOCAINE 1% INJ 10MG/ML (20 ML MDV) ONE (11:01)
[2019-05-23] MEDS ORDERED: LACTATED RINGERS 1,000 ML IV ONE (11:05)
[2019-05-23] MEDS ORDERED: LIDOCAINE 2% INJ 20 MG/ML INTRATRACH ONE (11:09)
--- NOTE | 2019-05-23 11:55 | P.PN ---
Subjective Progress Note Date: 05/23/19 Principal diagnosis: Bilateral pneumonia possibly related to aspiration On 05/22/2019 patient seen in follow-up on medical surgical floor. She is awake today, does not appear to be in any acute distress, she is currently on 2 L of oxygen with a pulse ox of 91%, she was febrile earlier this morning with a temp of 100.2F, decreased breath sounds on the left side, and today's chest x- ray shows up with opacification of the left hemithorax likely related to mucous plugging. Patient had already eaten breakfast today, does have occasional congestive cough, but not bringing up much sputum, patient will likely need bronchoscopy tomorrow, we'll obtain consent from the legal guardian, currently patient does not seem to be in any acute respiratory distress, she needs aggressive pulmonary toileting, and chest physiotherapy. On 05/23/2019 patient seen in follow-up on medical surgical floor. She is lethargic on today's exam, but arouses to tactile stimulation, does not appear to be in any distress, she is on 2 L of oxygen with a pulse ox of 95%, she is afebrile, respirations are nonlabored. Follow-up chest x-ray has been reviewed, showing improved aeration on the left but there is no increasing infiltration on the right, and diffuse bilateral consolidation and pleural effusion, doubt evidence of pneumothorax, lung sounds reveal diminished air entry bilaterally, but improved air entry on the left noted on today's exam. She is on a combination of Zithromax and Rocephin, we have been unable to obtain a sputum culture. Patient is scheduled for bronchoscopy with BAL today. Consent was obtained from the legal guardian, patient has been nothing by mouth since [facility]. Objective - Vital Signs Vital signs: Vital Signs Temp 98.4 F 05/23/19 10:30 Pulse 75 05/23/19 10:30 Resp 20 05/23/19 10:30 BP 125/81 05/23/19 10:30 Pulse Ox 95 05/23/19 10:30 Intake & Output 05/22/19 05/23/19 05/23/19 18:59 06:59 18:59 Intake Total 300 Balance 300 Intake: IV 300 Other: Voiding Method Diaper Diaper Diaper Incontinent Incontinent Incontinent # Voids 1 2 1 - Exam GENERAL EXAM: Alert, pleasant, 34-year-old [place] female, nonverbal, comfortable in no apparent distress. HEAD: Normocephalic/atraumatic. EYES: Normal reaction of pupils, equal size. Conjunctiva pink, sclera white. NOSE: Clear with pink turbinates. THROAT: No erythema or exudates. NECK: No masses, no JVD, no thyroid enlargement, no adenopathy. CHEST: No chest wall deformity. Symmetrical expansion. LUNGS: Equal air entry with decreased breath sounds at bilateral bases, patient has occasional congested nonproductive cough CVS: Regular rate and rhythm, normal S1 and S2, no gallops, no murmurs, no rubs ABDOMEN: Soft, nontender. No hepatosplenomegaly, normal bowel sounds, no guarding or rigidity. EXTREMITIES: No clubbing, no edema, no cyanosis, 2+ pulses and upper and lower extremities. MUSCULOSKELETAL: Muscle strength and tone normal. SPINE: No scoliosis or deformity SKIN: No rashes CENTRAL NERVOUS SYSTEM: Alert, unable to assess orientation as the patient is nonverbal. No focal deficits, tone is normal in all 4 extremities. - Labs CBC & Chem 7: 05/23/19 07:20 05/23/19 07:20 Labs: Abnormal Lab Results - Last 24 Hours (Table) 05/22/19 05/22/19 05/22/19 Range/Units : 16:53 20:02 RBC (3.80-5.40) m/uL Hgb (11.4-16.0) gm/dL Hct (34.0-46.0) % Chloride (98-107) mmol/L Glucose (74-99) mg/dL POC Glucose (mg/dL) 164 H 159 H 179 H (75-99) mg/dL 05/23/19 05/23/19 05/23/19 Range/Units 07:03 07:20 07:20 RBC 3.60 L (3.80-5.40) m/uL Hgb 10.4 L (11.4-16.0) gm/dL Hct 32.4 L (34.0-46.0) % Chloride 108 H (98-107) mmol/L Glucose 127 H (74-99) mg/dL POC Glucose (mg/dL) 117 H (75-99) mg/dL Microbiology - Last 24 Hours (Table) 05/19/19 11:09 Blood Culture - Preliminary Blood No Growth after 72 hours Assessment and Plan Plan: Assessment: #1. Acute bilateral pneumonia, suspect community-acquired versus aspiration. #2. Complete opacification of the left hemithorax likely related to mucous plugging, we will set up the patient for bronchoscopy and BAL tomorrow on 05/22/2019 #3. Febrile illness secondary to above, recovered. #4. Diabetes mellitus #5. Hypertension. #6. Hyperlipidemia. #7. History of seizure disorder. #8. Obesity. #9. History of autism, bipolar disorder, severe intellectual disability. Nonverbal. #10. History of previous MRSA infection. #11. Recurrent boils and infections under the arms. Plan: Follow-up chest x-ray has been reviewed today showing improved aeration on the left, however there is increased infiltration on the right side, hemodynamically patient stable, she remains on some supplemental oxygen, no fever or chills, unable to obtain a sputum specimen, we'll proceed with bronchoscopy with BAL today. Consent from the legal guardian has been obtained, patient has been nothing by mouth since midnight, follow-up chest x-ray. Continue current antibiotic coverage, will get follow-up chest x-ray tomorrow I performed a history & physical examination of the patient and discussed their management with my nurse practitioner, Spring Kothari. I reviewed the nurse practitioner's note and agree with the documented findings and plan of care. Lung sounds are positive for diminished breath sounds over left lung. The findings and the impression was discussed with the patient. I attest to the documentation by the nurse practitioner. Time with Patient: Less than 30
[2019-05-23 12:16] LABS: Glucose,Whole Blood 106 mg/dL (75-99)
[2019-05-23] MEDS: LORazepam 0.5 MG TAB PO SCH (13:33)
--- NOTE | 2019-05-23 13:40 | P.PN ---
Subjective Progress Note Date: 05/23/19 This is a 34-year-old female patient of Dr. Dean with past medical history of diabetes mellitus type 2, hypertension, autism, OCD, bipolar, severe intellectual disability, history of MRSA. Patient lives at [facility] and has a public guardian. Patient was brought in by her caregivers yesterday to the emergency center because she had a temperature of 104 and some mild labored breathing with increased dyspnea on exertion when she got up yesterday morning. Pulse ox was checked at the [facility] and was low at 90%. She does have history of aspiration pneumonia in the past. CBC and comp metabolic panel unremarkable. Blood sugar 195, initial lactic acid 4.2, troponin and negative now on 2 draws. Urinalysis clear with nitrate and leukoesterase negative. Influenza testing negative. Repeat lactic acid this morning 1.8. Pulse ox 8788% on room air and patient was placed on 4 L nasal cannula with improvement of her oxygenation to 99%. Temperature was 99.1 with tachycardia and blood pressure 95/53. Chest x-ray correlate for pneumonia, pulmonary edema. There is cardiomegaly. Patient was given 2 L of IV fluid bolus and started on Rocephin, nebulizer treatments. EKG sinus rhythm with nonspecific ST changes for which echocardiogram has been ordered. Blood sugars are elevated and metformin will not be resumed as lactic acid is normalized and insulin long-acting will be increased. There is a consult in place for pulmonary medicine. Blood cultures in process. Sputum cultures been unobtainable. 05/21: Repeat chest x-ray reveals mild cardiomegaly with bilateral multifocal multilobar acute infiltrates. No significant change from yesterday. Patient has been seen by Dr. Watt. Pulse ox is 92-94% on room air, blood pressure 120/62 and heart rate 91. Temperature max 102.5. Blood sugars this morning 159-290. WBC 9.0, hemoglobin 10.4. Repeat troponin was negative. Echocardiogram reveals EF of 60-65%, trace tricuspid regurgitation. Blood culture no growth at 48 hours. Patient is found resting with blanket over her head. She does not appear to be in any respiratory distress. We will add in mycoplasma pneumoniae and Legionella testing. IV fluids will be discontinued. 05/22: Repeat chest x-ray this morning revealed opacities occasional left adriana- thorax. She is scheduled for bronchoscopy for tomorrow with Dr. Watt. We will hold Lovenox in anticipation of bronchoscopy. Patient is also noted to have abdominal distention for which KUB will be ordered. Her last bowel movement was on the evening of May 20. A speech therapy consult has been added. Legionella and mycoplasma are pending. The patient is currently on azithromycin and Omnicef. Blood cultures no growth at 72 hours. 05/23: [facility] Patient fairly did well with procedure. No complications. Patient has been afebrile since yesterday 8 AM. Pulse ox is 95% on 2 L. Blood pressure 120/87, heart rate 78. WBC 6.3, hemoglobin 10.4. Creatinine 0.65. Blood sugars running between 106 and 127. HCG was not detected. Mycoplasma pneumoniae testing negative. Legionella testing pending. Patient is undergoing CPT. No sputum production. Speech therapy has found no abnormalities with swallow and recommended regular diet and no need for further treatment. KUB showed nonspecific abdomen correlate for constipation. Bilateral lung consolidation greater on the left. Repeat chest x-ray this morning revealed bilateral diffuse pleural parenchymal disease on the right and slightly improved on the left. Review of Systems ROS unobtainable: due to mental status Objective - Vital Signs Vital signs: Vital Signs Temp 98.2 F 05/23/19 11:50 Pulse 80 05/23/19 12:10 Resp 20 05/23/19 11:50 BP 147/92 05/23/19 11:50 Pulse Ox 98 05/23/19 11:50 Intake & Output 05/22/19 05/23/19 05/23/19 18:59 06:59 18:59 Intake Total 300 Balance 300 Intake: IV 300 Other: Voiding Method Diaper Diaper Diaper Incontinent Incontinent Incontinent # Voids 1 2 1 - Exam Gen: This is an obese 34-year-old female. She is in bed with a s itter at the bedside. She appears to be in no acute respiratory distress. HEENT: Head is atraumatic, normocephalic. Pupils equal, round. Sclerae is anicteric. NECK: Supple. No JVD. No lymphadenopathy. No thyromegaly. LUNGS: Diminished bilaterally with expiratory wheeze. No intercostal retraction s. HEART: Regular rate and rhythm. No murmur. ABDOMEN: Soft. Bowel sounds are present. No masses. No tenderness. EXTREMITIES: 1+ bilateral pedal edema. No calf tenderness. NEUROLOGICAL: Patient is awake, alert. Patient is able to follow simple commands.. - Labs CBC & Chem 7: 05/23/19 07:20 05/23/19 07:20 Labs: Abnormal Lab Results - Last 24 Hours (Table) 05/22/19 05/22/19 05/23/19 Range/Units 16:53 20:02 07:03 RBC (3.80-5.40) m/uL Hgb (11.4-16.0) gm/dL Hct (34.0-46.0) % Chloride (98-107) mmol/L Glucose (74-99) mg/dL POC Glucose (mg/dL) 159 H 179 H 117 H (75-99) mg/dL 05/23/19 05/23/19 05/23/19 Range/Units 07:20 07:20 12:13 RBC 3.60 L (3.80-5.40) m/uL Hgb 10.4 L (11.4-16.0) gm/dL Hct 32.4 L (34.0-46.0) % Chloride 108 H (98-107) mmol/L Glucose 127 H (74-99) mg/dL POC Glucose (mg/dL) 106 H (75-99) mg/dL Microbiology - Last 24 Hours (Table) 05/19/19 11:09 Blood Culture - Preliminary Blood No Growth after 72 hours Assessment and Plan Plan: 1. Pneumonia with sepsis and lactic acidosis. Continue azithromycin, Omnicef, DuoNeb treatments every 4 hours as needed, consult pulmonary medicine appreciated. Tylenol for fever. Bronchoscopy completed and formal report is pending. Lovenox placed on hold. Speech therapy consult appreciated. All within normal limits. 2. Diabetes mellitus type 2, uncontrolled with hyperglycemia secondary to steroids. Metformin may be resumed as lactic acidosis has resolved. Continue Tradjenta 5 mg daily, increase Levemir to 30 units twice daily and add NovoLog scale before meals and at bedtime. 3. Hypertension. Continue Lopressor 25 mg daily, propranolol 20 mg twice daily. 4. Autism, OCD, bipolar, severe intellectual disability. Continue sitter at the bedside. Continue Cogentin 1 mg at bedtime, Depakote ER at home dose, Ativan 0.5 mg daily at 1330 and every 4 hours as needed, naltrexone 100 mg at bedtime, fluvoxamine 50 mg at bedtime. 5. Hyperlipidemia. Continue pravastatin 40 mg at bedtime. 6. DVT prophylaxis. Lovenox. 7. GI prophylaxis. Pepcid. 8. Abdominal distention. Abdominal x-ray ordered Discharge plan: Return to [facility]. Impression and plan of care have been directed as dictated by the signing physician. Eli Brown nurse practitioner acting as scribe for signing physician.
--- NOTE | 2019-05-23 14:53 | PCN ---
PROCEDURE NOTE PROCEDURES: Bronchoscopy, airway examination, therapeutic lavage, bronchoalveolar lavage, right middle lobe. PREOPERATIVE DIAGNOSIS: Pneumonia and left lung collapse. POSTOPERATIVE DIAGNOSIS: Pneumonia and left lung collapse. OPERATORS: 1. Dr. Watt. 2. Dr. Harry. PROCEDURE DESCRIPTION: The patient's procedure took place in room #1. There was informed consent and universal timeout. REVENUE ACCOUNTING MANAGER provided general anesthesia/unconscious sedation. After the patient was adequately sedated and being fully monitored, the bronchoscope was inserted through the right nostril. It passed through the right nasopharynx into the oropharynx. The hypopharynx was identified and topicalized. The hypopharyngeal structures, including anterior commissure, true cords, false cords, arytenoids, piriform sinuses, right and left valleculae and epiglottis, all appeared relatively normal. The glottic opening was topicalized with lidocaine. The bronchoscope was pushed through the glottic opening into the trachea. There were some secretions noted in the distal trachea. Tracheal joshua was sharp. Right and left mainstem were topicalized. Right upper lobe and its 3 segments, right middle lobe and its 2 segments, right lower lobe and its 5 segments, left upper lobe proper and its 2 segments, the lingula and its 2 segments, and the left lower lobe and its 4 segments all had similar findings of diffuse airway erythema and hyperemia. The patient had severe bronchitis. The mucosa was friable and bled easily. There were some secretions noted throughout. They were suctioned without difficulty. Saline was used to assist in the suctioning of these secretions. There was no dominant mass or tumor. There was no bleeding. The bronchoscope was wedged into the right middle lobe. The BAL took place there. The patient tolerated the procedure well. Additional saline was instilled in the right lower lobe and left lower lobe, and all the secretions were suctioned. The patient tolerated the procedure well. The patient will be recovered. The samples will be sent to the laboratory for analysis. There was no immediate complication. MMODL / IJN: [id number] /
[2019-05-23] MEDS: MINOCYCLINE 50 MG CAP PO SCH (15:18)
[2019-05-23 17:18] LABS: Glucose,Whole Blood 109 mg/dL (75-99)
[2019-05-23 19:01] LABS: Appearance,BF Bloody; Nucleated Cells, Body Fluid 400 /uL; RBC, Body Fluid 18800 /uL
[2019-05-23 20:33] LABS: Glucose,Whole Blood 162 mg/dL (75-99)
[2019-05-23] MEDS: PRAVASTATIN SODIUM 40 MG TAB PO SCH (21:10)
[2019-05-23] MEDS: BENZTROPINE MESYLATE 1 MG TAB PO SCH (21:10)
[2019-05-23] MEDS: NALTREXONE HCL 50 MG TAB PO SCH (21:10)
[2019-05-23] MEDS: cloZAPine 100 MG TAB PO SCH (21:10)
[2019-05-23] MEDS: DIVALPROEX ER 500 MG TAB.ER.24H PO SCH (21:10)
[2019-05-24 07:30] LABS: Glucose,Whole Blood 97 mg/dL (75-99)
--- NOTE | 2019-05-24 10:34 | XR ---
EXAMINATION TYPE: XR chest 1V portable DATE OF EXAM: 05/24/2019 HISTORY: follow up pneumonia. REFERENCE: Previous study dated 05/23/2019. FINDINGS: Study is compromised by the patient's tremendous size. There is bibasilar airspace disease. This may have improved slightly. Heart size upper limits of norm al. I could not exclude small effusions. IMPRESSION: VERY SLIGHT IMPROVEMENT IN THE CONSOLIDATION IN THE LUNG BASES.
[2019-05-24] MEDS: INSULIN ASPART (NovoLOG) 100 UNIT/ML VIAL SQ SCH ×4 (10:42→20:39)
[2019-05-24] MEDS: BENZOYL PEROXIDE TOPICAL SCH (10:44)
[2019-05-24] MEDS: AZITHROMYCIN 500 MG TAB PO SCH (10:45)
[2019-05-24] MEDS: METOPROLOL TARTRATE 25 MG TAB PO SCH (10:45)
[2019-05-24] MEDS: INSULIN DETEMIR (LEVEMIR) 100 UNIT/ML SYR SQ SCH ×2 (10:45→20:39)
[2019-05-24] MEDS: DOCUSATE 100 MG CAP PO SCH (10:45)
[2019-05-24] MEDS: FAMOTIDINE 20 MG TAB PO SCH (10:45)
[2019-05-24] MEDS: CEFDINIR 300 MG CAP PO SCH ×2 (10:45→20:40)
[2019-05-24] MEDS: DIVALPROEX ER 250 MG TAB.ER.24H PO SCH ×2 (10:47→18:05)
[2019-05-24] MEDS: LINAGLIPTIN 5 MG TABLET PO SCH (10:47)
[2019-05-24] MEDS: PROPRANOLOL 20 MG TAB PO SCH ×2 (10:48→20:40)
[2019-05-24] MEDS: IPRATROPIUM-ALBUTEROL 3 ML NEB INHALATION SCH ×4 (10:50→20:43)
[2019-05-24] MEDS: AMMONIUM LACTATE 12% CREAM 140 GM TUBE TOPICAL SCH (10:53)
[2019-05-24 11:13] LABS: Glucose,Whole Blood 120 mg/dL (75-99)
--- NOTE | 2019-05-24 11:49 | P.PN ---
Subjective Progress Note Date: 05/24/19 Principal diagnosis: Bilateral pneumonia possibly aspiration. The patient is seen today 05/24/2019 in follow-up on the regular medical floor. She is resting comfortably in bed. She has a loose nonproductive cough. She is currently maintaining O2 saturations in the 90s on 3 L/m per nasal cannula. She's been afebrile. Hemodynamically stable. Bronch wash cultures are pending. Today's chest x-ray shows improvement of the pulmonary infiltrates bilaterally. She is currently on DuoNeb inhalations, minocycline, Omnicef and azithromycin. Objective - Vital Signs Vital signs: Vital Signs Temp 98.5 F 05/24/19 07:30 Pulse 84 05/24/19 11:28 Resp 18 05/24/19 07:30 BP 121/65 05/24/19 07:30 Pulse Ox 94 L 05/24/19 07:30 Intake & Output 05/23/19 05/24/19 05/24/19 18:59 06:59 18:59 Intake Total 300 590 Balance 300 590 Intake: IV 300 Oral 590 Other: Voiding Method Diaper Toilet Incontinent Diaper Incontinent # Voids 1 1 - Exam GENERAL EXAM: Alert, nonverbal 34-year-old female patient, comfortable in no apparent distress. HEAD: Normocephalic. EYES: Normal reaction of pupils, equal size. NOSE: Clear with pink turbinates. THROAT: No erythema or exudates. NECK: No masses, no JVD. CHEST: No chest wall deformity. LUNGS: Equal air entry with bilateral scattered rhonchi. CVS: S1 and S2 normal with no audible murmur, regular rhythm. ABDOMEN: No hepatosplenomegaly, normal bowel sounds, no guarding or rigidity. SPINE: No scoliosis or deformity SKIN: No rashes CENTRAL NERVOUS SYSTEM: Tone is normal in all 4 extremities. EXTREMITIES: There is no peripheral edema. No clubbing, no cyanosis. Periphera l pulses are intact. - Labs CBC & Chem 7: 05/23/19 07:20 05/23/19 07:20 Labs: Abnormal Lab Results - Last 24 Hours (Table) 05/23/19 05/23/19 05/23/19 Range/Units 11:00 12:13 17:14 POC Glucose (mg/dL) 106 H 109 H (75-99) mg/dL Viral Test See Below H 05/23/19 05/24/19 Range/Units 20:29 11:10 POC Glucose (mg/dL) 162 H 120 H (75-99) mg/dL Viral Test Microbiology - Last 24 Hours (Table) 05/23/19 11:00 Acid Fast Bacilli Smear - Final Bronchial Washings - Right Acid Fast Bacilli Culture - Preliminary 05/23/19 11:00 Gram Stain - Preliminary Bronchial Washings - Right Bronchial Washings Culture - Preliminary 05/23/19 11:00 Fungal Culture - Preliminary Bronchial Washings - Right 05/19/19 11:09 Blood Culture - Preliminary Blood No Growth after 96 hours Assessment and Plan Assessment: Impression: #1 Acute bilateral pneumonia, suspect community-acquired versus aspiration. Status post bronchoscopy with BAL and 04/22/2019. Cultures pending. #2 Febrile illness secondary to above, recovered. #3 Diabetes mellitus #4 Hypertension. #5 Hyperlipidemia. #6 History of seizure disorder. #7 Obesity. #8 History of autism, bipolar disorder, severe intellectual disability. Nonverbal. #9 History of previous MRSA infection. #10 Recurrent boils and infections under the arms. Plan: The patient was seen and evaluated by Dr. Watt. Chest x-ray reviewed. Prednisone added. Continue the current treatment plan. Aspiration precautions. We will continue to follow and make further recommendations based on her clinical status. I, the cosigning physician, performed a history & physical examination of the patient. Lungs sounds with bilateral scattered rhonchi. Maintaining good O2 saturations in the 90s on 3 L/m per nasal cannula. I discussed the assessment and plan of care with my nurse practitioner, Anabella Harry. I attest to the above note as dictated by her.
--- NOTE | 2019-05-24 13:24 | P.PN ---
Subjective Progress Note Date: 05/24/19 This is a 34-year-old female patient of Dr. Dean with past medical history of diabetes mellitus type 2, hypertension, autism, OCD, bipolar, severe intellectual disability, history of MRSA. Patient lives at [facility] and has a public guardian. Patient was brought in by her caregivers yesterday to the emergency center because she had a temperature of 104 and some mild labored breathing with increased dyspnea on exertion when she got up yesterday morning. Pulse ox was checked at the [facility] and was low at 90%. She does have history of aspiration pneumonia in the past. CBC and comp metabolic panel unremarkable. Blood sugar 195, initial lactic acid 4.2, troponin and negative now on 2 draws. Urinalysis clear with nitrate and leukoesterase negative. Influenza testing negative. Repeat lactic acid this morning 1.8. Pulse ox 8788% on room air and patient was placed on 4 L nasal cannula with improvement of her oxygenation to 99%. Temperature was 99.1 with tachycardia and blood pressure 95/53. Chest x-ray correlate for pneumonia, pulmonary edema. There is cardiomegaly. Patient was given 2 L of IV fluid bolus and started on Rocephin, nebulizer treatments. EKG sinus rhythm with nonspecific ST changes for which echocardiogram has been ordered. Blood sugars are elevated and metformin will not be resumed as lactic acid is normalized and insulin long-acting will be increased. There is a consult in place for pulmonary medicine. Blood cultures in process. Sputum cultures been unobtainable. 05/21: Repeat chest x-ray reveals mild cardiomegaly with bilateral multifocal multilobar acute infiltrates. No significant change from yesterday. Patient has been seen by Dr. Watt. Pulse ox is 92-94% on room air, blood pressure 120/62 and heart rate 91. Temperature max 102.5. Blood sugars this morning 159-290. WBC 9.0, hemoglobin 10.4. Repeat troponin was negative. Echocardiogram reveals EF of 60-65%, trace tricuspid regurgitation. Blood culture no growth at 48 hours. Patient is found resting with blanket over her head. She does not appear to be in any respiratory distress. We will add in mycoplasma pneumoniae and Legionella testing. IV fluids will be discontinued. 05/22: Repeat chest x-ray this morning revealed opacities occasional left adriana- thorax. She is scheduled for bronchoscopy for tomorrow with Dr. Watt. We will hold Lovenox in anticipation of bronchoscopy. Patient is also noted to have abdominal distention for which KUB will be ordered. Her last bowel movement was on the evening of May 20. A speech therapy consult has been added. Legionella and mycoplasma are pending. The patient is currently on azithromycin and Omnicef. Blood cultures no growth at 72 hours. 05/23: Patient is seen on the [facility] floor post bronchoscopy. Patient fairly did well with procedure. No complications. Patient has been afebrile since yesterday 8 AM. Pulse ox is 95% on 2 L. Blood pressure 120/87, heart rate 78. WBC 6.3, hemoglobin 10.4. Creatinine 0.65. Blood sugars running between 106 and 127. HCG was not detected. Mycoplasma pneumoniae testing negative. Legionella testing pending. Patient is undergoing CPT. No sputum production. Speech therapy has found no abnormalities with swallow and recommended regular diet and no need for further treatment. KUB showed nonspecific abdomen correlate for constipation. Bilateral lung consolidation greater on the left. Repeat chest x-ray this morning revealed bilateral diffuse pleural parenchymal disease on the right and slightly improved on the left. 05/24: Patient is resting in bed in no acute distress. Patient has been afebrile. Patient's pulse oxing 94% on 2 L. Patient was up to the bathroom on room air pulse oxing 84% at that time. Patient has been hemodynamically stable. paraInfluenza 1 detected. Per staff patient seems to be more congested and coughing more frequently compared to yesterday. Patient answer questions appropriately at times with the assistance of rail setter. Chest x-ray impression shows very slight improvement in the consolidation in the lung bases. Review of systems: Unable to obtain due to mental status Objective - Vital Signs Vital signs: Vital Signs Temp 98.5 F 05/24/19 07:30 Pulse 84 05/24/19 11:28 Resp 18 05/24/19 07:30 BP 121/65 05/24/19 07:30 Pulse Ox 94 L 05/24/19 07:30 Intake & Output 05/23/19 05/24/19 05/24/19 18:59 06:59 18:59 Intake Total 300 590 Balance 300 590 Intake: IV 300 Oral 590 Other: Voiding Method Diaper Toilet Incontinent Diaper Incontinent # Voids 1 1 - Exam Gen: This is an obese 34-year-old female. She is in bed with a sitter at the bedside. She appears to be in no acute respiratory distress. HEENT: Head is atraumatic, normocephalic. Pupils equal, round. Sclerae is anicteric. NECK: Supple. No JVD. No lymphadenopathy. No thyromegaly. LUNGS: Diminished bilaterally with expiratory wheeze. No intercostal retractions. HEART: Regular rate and rhythm. No murmur. ABDOMEN: Soft. Bowel sounds are present. No masses. No tenderness. EXTREMITIES: 1+ bilateral pedal edema. No calf tenderness. NEUROLOGICAL: Patient is awake, alert. Patient is able to follow simple commands - Labs CBC & Chem 7: 05/23/19 07:20 05/23/19 07:20 Labs: Abnormal Lab Results - Last 24 Hours (Table) 05/23/19 05/23/19 05/23/19 Range/Units 11:00 17:14 20:29 POC Glucose (mg/dL) 109 H 162 H (75-99) mg/dL Viral Test See Below H 05/24/19 Range/Units 11:10 POC Glucose (mg/dL) 120 H (75-99) mg/dL Viral Test Microbiology - Last 24 Hours (Table) 05/23/19 11:00 Acid Fast Bacilli Smear - Final Bronchial Washings - Right Acid Fast Bacilli Culture - Preliminary 05/23/19 11:00 Gram Stain - Preliminary Bronchial Washings - Right Bronchial Washings Culture - Preliminary 05/23/19 11:00 Fungal Culture - Preliminary Bronchial Washings - Right 05/19/19 11:09 Blood Culture - Preliminary Blood No Growth after 96 hours Assessment and Plan Plan: 1. Pneumonia with sepsis and lactic acidosis. Continue azithromycin, Omnicef, DuoNeb treatments every 4 hours as needed, consult pulmonary medicine appreciated. Tylenol for fever. Bronchoscopy completed and formal report is pending. Lovenox placed on hold. Speech therapy consult appreciated. All within normal limits. 2. Diabetes mellitus type 2, uncontrolled with hyperglycemia secondary to steroids. Metformin may be resumed as lactic acidosis has resolved. Continue Tradjenta 5 mg daily, increase Levemir to 30 units twice daily and add NovoLog scale before meals and at bedtime. 3. Hypertension. Continue Lopressor 25 mg daily, propranolol 20 mg twice daily. 4. Autism, OCD, bipolar, severe intellectual disability. Continue sitter at the bedside. Continue Cogentin 1 mg at bedtime, Depakote ER at home dose, Ativan 0.5 mg daily at 1330 and every 4 hours as needed, naltrexone 100 mg at bedtime, fluvoxamine 50 mg at bedtime. 5. Hyperlipidemia. Continue pravastatin 40 mg at bedtime. 6. Abdominal distention. Abdominal x-ray impression: Nonspecific abdominal correlate for constipation, bilateral lung consolidation greater on the left 7. GI prophylaxis. Pepcid. 8. DVT prophylaxis. Lovenox. Discharge plan: Return to [facility]. Impression and plan of care have been directed as dictated by the signing physician. Paulina Hines nurse practitioner acting as scribe for signing physician.
[2019-05-24] MEDS: predniSONE 20 MG TAB PO SCH (13:39)
[2019-05-24] MEDS: metFORMIN 500 MG TAB PO SCH ×2 (13:39→18:03)
[2019-05-24] MEDS: LORazepam 0.5 MG TAB PO SCH (13:39)
[2019-05-24 17:28] LABS: Glucose,Whole Blood 192 mg/dL (75-99)
[2019-05-24] MEDS: MINOCYCLINE 50 MG CAP PO SCH (18:04)
[2019-05-24 20:04] LABS: Glucose,Whole Blood 198 mg/dL (75-99)
[2019-05-24] MEDS: NALTREXONE HCL 50 MG TAB PO SCH (20:39)
[2019-05-24] MEDS: cloZAPine 100 MG TAB PO SCH (20:40)
[2019-05-24] MEDS: MELATONIN 5 MG TABLET PO SCH (20:40)
[2019-05-24] MEDS: BENZTROPINE MESYLATE 1 MG TAB PO SCH (20:40)
[2019-05-24] MEDS: DIVALPROEX ER 500 MG TAB.ER.24H PO SCH (20:41)
[2019-05-24] MEDS: PRAVASTATIN SODIUM 40 MG TAB PO SCH (20:41)
[2019-05-24] MEDS: BUDESONIDE 1 MG/2 ML NEBU INHALATION SCH (20:43)
[2019-05-24] MEDS: FORMOTEROL FUMARATE 20 MCG/2 ML NEBU INHALATION SCH (20:43)
[2019-05-25 06:56] LABS: Glucose,Whole Blood 185 mg/dL (75-99)
[2019-05-25] MEDS: IPRATROPIUM-ALBUTEROL 3 ML NEB INHALATION SCH ×4 (08:47→20:33)
[2019-05-25] MEDS: FORMOTEROL FUMARATE 20 MCG/2 ML NEBU INHALATION SCH ×2 (08:47→20:33)
[2019-05-25] MEDS: BUDESONIDE 1 MG/2 ML NEBU INHALATION SCH ×2 (08:47→20:33)
[2019-05-25] MEDS: BENZOYL PEROXIDE TOPICAL SCH (08:52)
[2019-05-25] MEDS: INSULIN ASPART (NovoLOG) 100 UNIT/ML VIAL SQ SCH ×4 (09:05→21:21)
[2019-05-25] MEDS: AZITHROMYCIN 500 MG TAB PO SCH (09:06)
[2019-05-25] MEDS: metFORMIN 500 MG TAB PO SCH ×2 (09:06→19:20)
[2019-05-25] MEDS: DOCUSATE 100 MG CAP PO SCH (09:07)
[2019-05-25] MEDS: METOPROLOL TARTRATE 25 MG TAB PO SCH (09:07)
[2019-05-25] MEDS: DIVALPROEX ER 250 MG TAB.ER.24H PO SCH ×2 (09:09→15:49)
[2019-05-25] MEDS: CEFDINIR 300 MG CAP PO SCH ×2 (09:10→21:22)
[2019-05-25] MEDS: SENNOSIDES-DOCUSATE SODIUM 1 EACH TAB PO SCH (09:11)
[2019-05-25] MEDS: PROPRANOLOL 20 MG TAB PO SCH ×2 (09:11→21:23)
[2019-05-25] MEDS: LINAGLIPTIN 5 MG TABLET PO SCH (09:11)
[2019-05-25] MEDS: FAMOTIDINE 20 MG TAB PO SCH (09:28)
[2019-05-25] MEDS: predniSONE 20 MG TAB PO SCH (09:28)
[2019-05-25] MEDS: AMMONIUM LACTATE 12% CREAM 140 GM TUBE TOPICAL SCH (09:28)
--- NOTE | 2019-05-25 10:31 | P.PN ---
Subjective Progress Note Date: 05/25/19 Principal diagnosis: Bilateral pneumonia possibly related to aspiration On 05/22/2019 patient seen in follow-up on medical surgical floor. She is awake today, does not appear to be in any acute distress, she is currently on 2 L of oxygen with a pulse ox of 91%, she was febrile earlier this morning with a temp of 100.2F, decreased breath sounds on the left side, and today's chest x- ray shows up with opacification of the left hemithorax likely related to mucous plugging. Patient had already eaten breakfast today, does have occasional congestive cough, but not bringing up much sputum, patient will likely need bronchoscopy tomorrow, we'll obtain consent from the legal guardian, currently patient does not seem to be in any acute respiratory distress, she needs aggressive pulmonary toileting, and chest physiotherapy. On 05/23/2019 patient seen in follow-up on medical surgical floor. She is lethargic on today's exam, but arouses to tactile stimulation, does not appear to be in any distress, she is on 2 L of oxygen with a pulse ox of 95%, she is afebrile, respirations are nonlabored. Follow-up chest x-ray has been reviewed, showing improved aeration on the left but there is no increasing infiltration on the right, and diffuse bilateral consolidation and pleural effusion, doubt evidence of pneumothorax, lung sounds reveal diminished air entry bilaterally, but improved air entry on the left noted on today's exam. She is on a combination of Zithromax and Rocephin, we have been unable to obtain a sputum culture. Patient is scheduled for bronchoscopy with BAL today. Consent was obtained from the legal guardian, patient has been nothing by mouth since [facility]. On 05/25/2019 patient seen in follow-up on medical surgical floor. She is awake and alert today, she is sitting up on the edge of bed, does not appear to be in any acute distress, patient is nonverbal, but seems to be very comfortable, she is currently on room air and the pulse ox of 91-94%, afebrile, hemodynamically stable, respirations are even and nonlabored, patient is ambulating about the room, without any difficulty, yesterday chest x-ray showed bibasilar airspace disease, with slight improvement.splitting of small pleural effusions, bronchial lavage cultures are negative thus far, blood culture showed no growth, patient is on a common issue of Zithromax and Rocephin, breathing treatments, she has been unable to do the incentive spirometer related to her underlying cognitive deficit. Equal air entry noted bilaterally, no significant rhonchi or wheezes. Objective - Vital Signs Vital signs: Vital Signs Temp 98.0 F 05/25/19 04:09 Pulse 80 05/25/19 09:15 Resp 24 05/25/19 04:09 BP 117/64 05/25/19 04:09 Pulse Ox 91 L 05/25/19 04:09 Intake & Output 05/24/19 05/25/19 05/25/19 19:59 06:59 18:59 Intake Total Balance Intake: Oral Other: Voiding Method # Voids - Exam GENERAL EXAM: Alert, pleasant, 34-year-old -[place] female, nonverbal, comfortable in no apparent distress. HEAD: Normocephalic/atraumatic. EYES: Normal reaction of pupils, equal size. Conjunctiva pink, sclera white. NOSE: Clear with pink turbinates. THROAT: No erythema or exudates. NECK: No masses, no JVD, no thyroid enlargement, no adenopathy. CHEST: No chest wall deformity. Symmetrical expansion. LUNGS: Equal air entry with decreased breath sounds at bilateral bases, patient has occasional congested nonproductive cough CVS: Regular rate and rhythm, normal S1 and S2, no gallops, no murmurs, no rubs ABDOMEN: Soft, nontender. No hepatosplenomegaly, normal bowel sounds, no guarding or rigidity. EXTREMITIES: No clubbing, no edema, no cyanosis, 2+ pulses and upper and lower extremities. MUSCULOSKELETAL: Muscle strength and tone normal. SPINE: No scoliosis or deformity SKIN: No rashes CENTRAL NERVOUS SYSTEM: Alert, unable to assess orientation as the patient is nonverbal. No focal deficits, tone is normal in all 4 extremities. - Labs CBC & Chem 7: 05/23/19 07:20 05/23/19 07:20 Labs: Abnormal Lab Results - Last 24 Hours (Table) 05/24/19 05/24/19 05/25/19 Range/Units 17:24 20:02 06:53 POC Glucose (mg/dL) 192 H 198 H 185 H (75-99) mg/dL Microbiology - Last 24 Hours (Table) 05/19/19 11:09 Blood Culture - Preliminary Blood No Growth after 120 hours Assessment and Plan Plan: Assessment: #1. Acute bilateral pneumonia, suspect community-acquired versus aspiration. Status post bronchoscopy with BAL, and bronchial wash cultures are pending #2. Complete opacification of the left hemithorax likely related to mucous plugging, status post bronchoscopy and BAL on 05/22/2019 #3. Febrile illness secondary to above, recovered. #4. Diabetes mellitus #5. Hypertension. #6. Hyperlipidemia. #7. History of seizure disorder. #8. Obesity. #9. History of autism, bipolar disorder, severe intellectual disability. Nonverbal. #10. History of previous MRSA infection. #11. Recurrent boils and infections under the arms. Plan: Clinically patient is stable, breathing is nonlabored, she is on room air, no significant cough or congestion, yesterday's chest x-ray shows slight improvement in appearance of bibasilar airspace disease, with small pleural effusions, clinically patient appears to be asymptomatic, no fever or chills, br onchial cultures are still pending, continue Zithromax and Rocephin, breathing treatments, encourage ambulation and deep breathing and coughing, she is unable to do the incentive spirometer related to underlying cognitive deficit. I performed a history & physical examination of the patient and discussed their management with my nurse practitioner, Spring Kothari. I reviewed the nurse practitioner's note and agree with the documented findings and plan of care. Lung sounds are positive for diminished breath sounds over left lung. The findings and the impression was discussed with the patient. I attest to the documentation by the nurse practitioner. Time with Patient: Less than 30
[2019-05-25] MEDS: INSULIN DETEMIR (LEVEMIR) 100 UNIT/ML SYR SQ SCH ×2 (12:20→21:22)
[2019-05-25 12:53] LABS: Glucose,Whole Blood 175 mg/dL (75-99)
[2019-05-25] MEDS: FUROSEMIDE 40 MG TAB PO SCH (13:10)
--- NOTE | 2019-05-25 13:38 | P.PN ---
Subjective Progress Note Date: 05/25/19 This is a 34-year-old female patient of Dr. Dean with past medical history of diabetes mellitus type 2, hypertension, autism, OCD, bipolar, severe intellectual disability, history of MRSA. Patient lives at [facility] and has a public guardian. Patient was brought in by her caregivers yesterday to the emergency center because she had a temperature of 104 and some mild labored breathing with increased dyspnea on exertion when she got up yesterday morning. Pulse ox was checked at the [facility] and was low at 90%. She does have history of aspiration pneumonia in the past. CBC and comp metabolic panel unremarkable. Blood sugar 195, initial lactic acid 4.2, troponin and negative now on 2 draws. Urinalysis clear with nitrate and leukoesterase negative. Influenza testing negative. Repeat lactic acid this morning 1.8. Pulse ox 8788% on room air and patient was placed on 4 L nasal cannula with improvement of her oxygenation to 99%. Temperature was 99.1 with tachycardia and blood pressure 95/53. Chest x-ray correlate for pneumonia, pulmonary edema. There is cardiomegaly. Patient was given 2 L of IV fluid bolus and started on Rocephin, nebulizer treatments. EKG sinus rhythm with nonspecific ST changes for which echocardiogram has been ordered. Blood sugars are elevated and metformin will not be resumed as lactic acid is normalized and insulin long-acting will be increased. There is a consult in place for pulmonary medicine. Blood cultures in process. Sputum cultures been unobtainable. 05/21: Repeat chest x-ray reveals mild cardiomegaly with bilateral multifocal multilobar acute infiltrates. No significant change from yesterday. Patient has been seen by Dr. Watt. Pulse ox is 92-94% on room air, blood pressure 120/62 and heart rate 91. Temperature max 102.5. Blood sugars this morning 159-290. WBC 9.0, hemoglobin 10.4. Repeat troponin was negative. Echocardiogram reveals EF of 60-65%, trace tricuspid regurgitation. Blood culture no growth at 48 hours. Patient is found resting with blanket over her head. She does not appear to be in any respiratory distress. We will add in mycoplasma pneumoniae and Legionella testing. IV fluids will be discontinued. 05/22: Repeat chest x-ray this morning revealed opacities occasional left adriana- thorax. She is scheduled for bronchoscopy for tomorrow with Dr. Watt. We will hold Lovenox in anticipation of bronchoscopy. Patient is also noted to have abdominal distention for which KUB will be ordered. Her last bowel movement was on the evening of May 20. A speech therapy consult has been added. Legionella and mycoplasma are pending. The patient is currently on azithromycin and Omnicef. Blood cultures no growth at 72 hours. 05/23: Patient is seen on the [facility] floor post bronchoscopy. Patient fairly did well with procedure. No complications. Patient has been afebrile since yesterday 8 AM. Pulse ox is 95% on 2 L. Blood pressure 120/87, heart rate 78. WBC 6.3, hemoglobin 10.4. Creatinine 0.65. Blood sugars running between 106 and 127. HCG was not detected. Mycoplasma pneumoniae testing negative. Legionella testing pending. Patient is undergoing CPT. No sputum production. Speech therapy has found no abnormalities with swallow and recommended regular diet and no need for further treatment. KUB showed nonspecific abdomen correlate for constipation. Bilateral lung consolidation greater on the left. Repeat chest x-ray this morning revealed bilateral diffuse pleural parenchymal disease on the right and slightly improved on the left. 05/24: Patient is resting in bed in no acute distress. Patient has been afebrile. Patient's pulse oxing 94% on 2 L. Patient was up to the bathroom on room air pulse oxing 84% at that time. Patient has been hemodynamically stable. paraInfluenza 1 detected. Per staff patient seems to be more congested and coughing more frequently compared to yesterday. Patient answer questions appropriately at times with the assistance of bpm analyst. Chest x-ray impression shows very slight improvement in the consolidation in the lung bases. 05/25: Patient is resting in bed in no acute distress. Patient has been afebrile. Pulse ox 93% on room air. Patient has been up to the bathroom. Her pulse ox does continue to drop with exertion. Patient is hemodialysis stable. Nursing staff is concerned about the increased edema noted to the patient's hands and lower extremities. Patient was started on prednisone yesterday. Review of systems: Unable to obtain due to mental status Objective - Vital Signs Vital signs: Vital Signs Temp 98 F 05/25/19 13:00 Pulse 87 05/25/19 13:00 Resp 17 05/25/19 13:00 BP 131/87 05/25/19 13:00 Pulse Ox 93 L 05/25/19 13:00 Intake & Output 05/24/19 05/25/19 05/25/19 19:59 06:59 18:59 Intake Total Balance Intake: Oral Other: Voiding Method Toilet Diaper Incontinent # Voids 1 - Exam Gen: This is an obese 34-year-old female. She is in bed with a sitter at the bedside. She appears to be in no acute respiratory distress. HEENT: Head is atraumatic, normocephalic. Pupils equal, round. Sclerae is anic teric. NECK: Supple. No JVD. No lymphadenopathy. No thyromegaly. LUNGS: Diminished bilaterally with expiratory wheeze. No intercostal retractions. HEART: Regular rate and rhythm. No murmur. ABDOMEN: Soft. Bowel sounds are present. No masses. No tenderness. EXTREMITIES: 1+ bilateral pedal edema. No calf tenderness. NEUROLOGICAL: Patient is awake, alert. Patient is able to follow simple comma nds - Labs CBC & Chem 7: 05/23/19 07:20 05/23/19 07:20 Labs: Abnormal Lab Results - Last 24 Hours (Table) 05/24/19 05/24/19 05/25/19 Range/Units 17:24 20:02 06:53 POC Glucose (mg/dL) 192 H 198 H 185 H (75-99) mg/dL 05/25/19 Range/Units 12:51 POC Glucose (mg/dL) 175 H (75-99) mg/dL Microbiology - Last 24 Hours (Table) 05/19/19 11:09 Blood Culture - Final Blood No Growth after 144 hours 05/23/19 11:00 Gram Stain - Final Bronchial Washings - Right Bronchial Washings Culture - Final Assessment and Plan Plan: 1. Pneumonia with sepsis and lactic acidosis. Continue azithromycin, Omnicef, DuoNeb treatments every 4 hours as needed, consult pulmonary medicine appreciated. Tylenol for fever. Bronchoscopy completed and formal report is pending. Lovenox placed on hold. Speech therapy consult appreciated. All within normal limits. 2. Diabetes mellitus type 2, uncontrolled with hyperglycemia secondary to s teroids. Metformin may be resumed as lactic acidosis has resolved. Continue Tradjenta 5 mg daily, increase Levemir to 30 units twice daily and add NovoLog scale before meals and at bedtime. 3. Hypertension. Continue Lopressor 25 mg daily, propranolol 20 mg twice daily. 4. Autism, OCD, bipolar, severe intellectual disability. Continue sitter at the bedside. Continue Cogentin 1 mg at bedtime, Depakote ER at home dose, Ativan 0.5 mg daily at 1330 and every 4 hours as needed, naltrexone 100 mg at bedtime, fluvoxamine 50 mg at bedtime. 5. Hyperlipidemia. Continue pravastatin 40 mg at bedtime. 6. Abdominal distention. Abdominal x-ray impression: Nonspecific abdominal correlate for constipation, bilateral lung consolidation greater on the left 7. Edema. Lasix 40 mg by mouth daily 8. DVT prophylaxis. Lovenox. 9. GI prophylaxis. Pepcid. Discharge plan: Possible discharge tomorrow, Return to [facility]. Impression and plan of care have been directed as dictated by the signing physician. Paulina Hines nurse practitioner acting as scribe for signing physician.
[2019-05-25] MEDS: LORazepam 0.5 MG TAB PO SCH (14:52)
[2019-05-25] MEDS: MINOCYCLINE 50 MG CAP PO SCH (15:49)
[2019-05-25 17:05] LABS: Glucose,Whole Blood 257 mg/dL (75-99)
[2019-05-25 20:39] LABS: Glucose,Whole Blood 349 mg/dL (75-99)
[2019-05-25] MEDS: BENZTROPINE MESYLATE 1 MG TAB PO SCH (21:22)
[2019-05-25] MEDS: NALTREXONE HCL 50 MG TAB PO SCH (21:22)
[2019-05-25] MEDS: MELATONIN 5 MG TABLET PO SCH (21:22)
[2019-05-25] MEDS: PRAVASTATIN SODIUM 40 MG TAB PO SCH (21:23)
[2019-05-25] MEDS: cloZAPine 100 MG TAB PO SCH (21:23)
[2019-05-25] MEDS: DIVALPROEX ER 500 MG TAB.ER.24H PO SCH (21:23)
[2019-05-25 22:01] VITALS: BP 113/77; RESP 16; TEMP 98.1
[2019-05-26 07:05] LABS: Glucose,Whole Blood 123 mg/dL (75-99)
[2019-05-26] MEDS: DOCUSATE 100 MG CAP PO SCH (08:12)
[2019-05-26] MEDS: INSULIN DETEMIR (LEVEMIR) 100 UNIT/ML SYR SQ SCH (08:12)
[2019-05-26] MEDS: predniSONE 20 MG TAB PO SCH (08:12)
[2019-05-26] MEDS: METOPROLOL TARTRATE 25 MG TAB PO SCH (08:12)
[2019-05-26] MEDS: FAMOTIDINE 20 MG TAB PO SCH (08:12)
[2019-05-26] MEDS: CEFDINIR 300 MG CAP PO SCH (08:13)
[2019-05-26] MEDS: PROPRANOLOL 20 MG TAB PO SCH (08:14)
[2019-05-26] MEDS: LINAGLIPTIN 5 MG TABLET PO SCH (08:14)
[2019-05-26] MEDS: DIVALPROEX ER 250 MG TAB.ER.24H PO SCH (08:14)
[2019-05-26] MEDS: BENZOYL PEROXIDE TOPICAL SCH (08:15)
[2019-05-26] MEDS: FUROSEMIDE 40 MG TAB PO SCH (08:16)
[2019-05-26] MEDS: metFORMIN 500 MG TAB PO SCH (08:16)
[2019-05-26] MEDS: SENNOSIDES-DOCUSATE SODIUM 1 EACH TAB PO SCH (08:18)
[2019-05-26] MEDS: AMMONIUM LACTATE 12% CREAM 140 GM TUBE TOPICAL SCH (08:18)
[2019-05-26] MEDS: INSULIN ASPART (NovoLOG) 100 UNIT/ML VIAL SQ SCH (08:18)
[2019-05-26] MEDS: AZITHROMYCIN 500 MG TAB PO SCH (08:39)
[2019-05-26] MEDS: IPRATROPIUM-ALBUTEROL 3 ML NEB INHALATION SCH (09:13)
[2019-05-26] MEDS: FORMOTEROL FUMARATE 20 MCG/2 ML NEBU INHALATION SCH (09:13)
[2019-05-26] MEDS: BUDESONIDE 1 MG/2 ML NEBU INHALATION SCH (09:13)
[2019-05-26 09:41] VITALS: PULSE 84
[2019-05-26 09:48] VITALS: BMI 33.0
--- NOTE | 2019-05-26 10:13 | XR ---
EXAMINATION TYPE: XR chest 2V DATE OF EXAM: 05/26/2019 COMPARISON: 05/24/2019 TECHNIQUE: PA and lateral views submitted. HISTORY: Follow-up pneumonia FINDINGS: Bilateral patchy areas of consolidation. Biapical pleural thickening. Heart size stable. No pneumotho rax. Suggestion of tiny bilateral. IMPRESSION: 1. Diffuse bilateral patchy infiltrates correlate for pneumonia versus CHF. Findings stable.
[2019-05-26 10:58] LABS: Mononuclear WBC,Body Fluid 50 %; Polynuclear WBC,Body Fluid 50 %; Total Cells Counted,Body Fluid 100
--- NOTE | 2019-05-26 15:35 | P.DS ---
Providers Date of admission: 05/19/19 13:37 Expected date of discharge: 05/26/19 Attending physician: Jason Fierro MD Consults: 05/19/19 13:43 Consult Physician Stat Consulting Provider: Rafa Watt Consult Reason/Comments: Pneumonia Do you want consulting provider notified?: Yes Primary care physician: Emeterio Dean [facility] Course: This is a 34-year-old female patient of Dr. Dean with past medical history of diabetes mellitus type 2, hypertension, autism, OCD, bipolar, severe intellectual disability, history of MRSA. Patient lives at [facility] and has a public guardian. Patient was brought in by her caregivers yesterday to the emergency center because she had a temperature of 104 and some mild labored breathing with increased dyspnea on exertion when she got up yesterday morning. Pulse ox was checked at the [facility] and was low at 90%. She does have history of aspiration pneumonia in the past. CBC and comp metabolic panel unremarkable. Blood sugar 195, initial lactic acid 4.2, troponin and negative now on 2 draws. Urinalysis clear with nitrate and leukoesterase negative. Influenza testing negative. Repeat lactic acid this morning 1.8. Pulse ox 8788% on room air and patient was placed on 4 L nasal cannula with improvement of her oxygenation to 99%. Temperature was 99.1 with tachycardia and blood pressure 95/53. Chest x-ray correlate for pneumonia, pulmonary edema. There is cardiomegaly. Patient was given 2 L of IV fluid bolus and started on Rocephin, nebulizer treatments. EKG sinus rhythm with nonspecific ST changes for which echocardiogram has been ordered. Blood sugars are elevated and metformin will not be resumed as lactic acid is normalized and insulin long-acting will be increased. There is a consult in place for pulmonary medicine. Blood cultures in process. Sputum cultures been unobtainable. 05/21: Repeat chest x-ray reveals mild cardiomegaly with bilateral multifocal multilobar acute infiltrates. No significant change from yesterday. Patient has been seen by Dr. Watt. Pulse ox is 92-94% on room air, blood pressure 120/62 and heart rate 91. Temperature max 102.5. Blood sugars this morning 159-290. WBC 9.0, hemoglobin 10.4. Repeat troponin was negative. Echocardiogram reveals EF of 60-65%, trace tricuspid regurgitation. Blood culture no growth at 48 hours. Patient is found resting with blanket over her head. She does not appear to be in any respiratory distress. We will add in mycoplasma pneumoniae and Legionella testing. IV fluids will be discontinued. 05/22: Repeat chest x-ray this morning revealed opacities occasional left adriana- thorax. She is scheduled for bronchoscopy for tomorrow with Dr. Watt. We will hold Lovenox in anticipation of bronchoscopy. Patient is also noted to have abdominal distention for which KUB will be ordered. Her last bowel movement was on the evening of May 20. A speech therapy consult has been added. Legionella and mycoplasma are pending. The patient is currently on azithromycin and Omnicef. Blood cultures no growth at 72 hours. 05/23: Patient is seen on the [facility] floor post bronchoscopy. Patient fairly did well with procedure. No complications. Patient has been afebrile since yesterday 8 AM. Pulse ox is 95% on 2 L. Blood pressure 120/87, heart rate 78. WBC 6.3, hemoglobin 10.4. Creatinine 0.65. Blood sugars running between 106 and 127. HCG was not detected. Mycoplasma pneumoniae testing negative. Legionella testing pending. Patient is undergoing CPT. No sputum production. Speech therapy has found no abnormalities with swallow and recommended regular diet and no need for further treatment. KUB showed nonspecific abdomen correlate for constipation. Bilateral lung consolidation greater on the left. Repeat chest x-ray this morning revealed bilateral diffuse pleural parenchymal disease on the right and slightly improved on the left. 05/24: Patient is resting in bed in no acute distress. Patient has been afebrile. Patient's pulse oxing 94% on 2 L. Patient was up to the bathroom on room air pulse oxing 84% at that time. Patient has been hemodynamically stable. paraInfluenza 1 detected. Per staff patient seems to be more congested and coughing more frequently compared to yesterday. Patient answer questions appropriately at times with the assistance of lime boiler. Chest x-ray impression shows very slight improvement in the consolidation in the lung bases. 05/25: Patient is resting in bed in no acute distress. Patient has been afebrile. Pulse ox 93% on room air. Patient has been up to the bathroom. Her pulse ox does continue to drop with exertion. Patient is hemodialysis stable. Nursing staff is concerned about the increased edema noted to the patient's hands and lower extremities. Patient was started on prednisone yesterday. 05/26: Cytology report from bronchoscopy remains pending. Culture from bronchial washing reveals normal respiratory levar. Viral testing is positive for parainfluenza 1. Legionella negative. Repeat chest x-ray reveals diffuse bilateral patchy infiltrates correlate for pneumonia versus CHF. Findings stable. Patient appears to be in no acute distress. Patient will be discharged back to [facility] in stable condition. Discharge diagnoses: 1. Pneumonia with sepsis and lactic acidosis status post bronchoscopy with BAL and bronchial wash. 2. Diabetes mellitus type 2, uncontrolled with hyperglycemia secondary to steroids. 3. Hypertension. 4. Autism, OCD, bipolar, severe intellectual disability. 5. Hyperlipidemia. 6. Abdominal distention. 7. Edema. Discharge plan: Return to [facility]. Impression and plan of care have been directed as dictated by the signing ph ysician. Eil Brown nurse practitioner acting as scribe for signing physician. Patient Condition at Discharge: Good Plan - Discharge Summary Discharge Rx Participant: Yes New Discharge Prescriptions: New Cefdinir [Omnicef] 300 mg PO BID #10 cap Famotidine [Pepcid] 20 mg PO DAILY tab predniSONE 0 mg PO DIRECTED #30 tab Albuterol Inhaler [Ventolin Hfa Inhaler] 1 - 2 puff INHALATION RT-Q6H #1 inhaler Continue LORazepam [Ativan] 0.5 mg PO Q4H PRN PRN Reason: Severe Agitation EPINEPHrine (Auto Inject) [Epipen] 0.3 mg IM ONCE PRN PRN Reason: Anaphylaxis Cholecalciferol [Vitamin D3 (25 Mcg = 1000 Iu)] 1,000 unit PO DAILY Propranolol [Inderal] 20 mg PO BID Pravastatin Sodium [Pravachol] 40 mg PO HS Potassium Chloride [Klor-Con 20] 20 meq PO DAILY Naltrexone HCl [Revia] 100 mg PO HS Minocycline HCl [Minocin] 100 mg PO DAILY@1600 Metoprolol Tartrate [Lopressor] 25 mg PO DAILY metFORMIN HCL ER [Glucophage Xr] 500 mg PO AC-BID medroxyPROGESTERone [Depo-Provera] 150 mg IM Q90D Loratadine [Claritin] 10 mg PO DAILY LORazepam [Ativan] 0.5 mg PO DAILY@1330 Insulin Glargine [Lantus] 24 unit SQ BID sitaGLIPtin [Januvia] 100 mg PO DAILY fluvoxaMINE [Luvox] 50 mg PO HS Furosemide [Lasix] 40 mg PO DAILY Docusate Sodium [Dok] 100 mg PO DAILY Divalproex ER [Depakote ER] 1,000 mg PO HS@2100 cloZAPine [Clozaril] 100 mg PO HS Divalproex ER [Depakote ER] 250 mg PO BID@0800,1600 Clindamycin Topical Soln [Cleocin-T Topical Soln] 1 applic TOPICAL BID Benztropine Mesylate [Cogentin] 1 mg PO HS Benzoyl Peroxide [Benzac AC Wash] 1 applic TOPICAL DAILY Ammonium Lactate Cream [Lac-Hydrin 12% Cream] 1 applic TOPICAL DAILY L.acidoph,Paracasei, B.lactis [Probiotic] 1 cap PO DAILY PRN PRN Reason: TAKES WITH ANTIBIOTICS Discharge Medication List Ammonium Lactate Cream [Lac-Hydrin 12% Cream] 1 applic TOPICAL DAILY 05/19/19 [History] Benzoyl Peroxide [Benzac AC Wash] 1 applic TOPICAL DAILY 05/19/19 [History] Benztropine Mesylate [Cogentin] 1 mg PO HS 05/19/19 [History] Cholecalciferol [Vitamin D3 (25 Mcg = 1000 Iu)] 1,000 unit PO DAILY 05/19/19 [History] Clindamycin Topical Soln [Cleocin-T Topical Soln] 1 applic TOPICAL BID 05/19/19 [History] Divalproex ER [Depakote ER] 1,000 mg PO HS@2100 05/19/19 [History] Divalproex ER [Depakote ER] 250 mg PO BID@0800,1600 05/19/19 [History] Docusate Sodium [Dok] 100 mg PO DAILY 05/19/19 [History] EPINEPHrine (Auto Inject) [Epipen] 0.3 mg IM ONCE PRN 05/19/19 [History] Furosemide [Lasix] 40 mg PO DAILY 05/19/19 [History] Insulin Glargine [Lantus] 24 unit SQ BID 05/19/19 [History] L.acidoph,Paracasei, B.lactis [Probiotic] 1 cap PO DAILY PRN 05/19/19 [History] LORazepam [Ativan] 0.5 mg PO DAILY@1330 05/19/19 [History] LORazepam [Ativan] 0.5 mg PO Q4H PRN 05/19/19 [History] Loratadine [Claritin] 10 mg PO DAILY 05/19/19 [History] Metoprolol Tartrate [Lopressor] 25 mg PO DAILY 05/19/19 [History] Minocycline HCl [Minocin] 100 mg PO DAILY@1600 05/19/19 [History] Naltrexone HCl [Revia] 100 mg PO HS 05/19/19 [History] Potassium Chloride [Klor-Con 20] 20 meq PO DAILY 05/19/19 [History] Pravastatin Sodium [Pravachol] 40 mg PO HS 05/19/19 [History] Propranolol [Inderal] 20 mg PO BID 05/19/19 [History] cloZAPine [Clozaril] 100 mg PO HS 05/19/19 [History] fluvoxaMINE [Luvox] 50 mg PO HS 05/19/19 [History] medroxyPROGESTERone [Depo-Provera] 150 mg IM Q90D 05/19/19 [History] metFORMIN HCL ER [Glucophage Xr] 500 mg PO AC-BID 05/19/19 [History] sitaGLIPtin [Januvia] 100 mg PO DAILY 05/19/19 [History] Albuterol Inhaler [Ventolin Hfa Inhaler] 1 - 2 puff INHALATION RT-Q6H #1 inhaler 05/26/19 [Rx] Cefdinir [Omnicef] 300 mg PO BID #10 cap 05/26/19 [Rx] Famotidine [Pepcid] 20 mg PO DAILY tab 05/26/19 [Rx] predniSONE 0 mg PO DIRECTED #30 tab 05/26/19 [Rx] Follow up Appointment(s)/Referral(s): Rafa Watt DO [Doctor of Osteopathic Medicine] - 06/06/19 8:30 am Emeterio Dean MD [Primary Care Provider] - 06/02/19 8:45 am Activity/Diet/Wound Care/Special Instructions: [facility] home [phone] Discharge Disposition: HOME SELF-CARE
== END 2019-05-26 11:16 | disposition home or self-care (01) | DRG 871 ==
LOC: EEVIPCON 09:11 → EC 09:11 → 3NMEDONC 13:37
PROVIDERS: ADMIT Internal Medicine; ATTEND Internal Medicine
PROC: 0B9D8ZX Drainage of Right Middle Lung Lobe, Via Natural or Artificial Opening Endoscopic, Diagnostic (ICD-10-PCS; principal; 2019-05-23 11:00)
DX: A41.9 Sepsis, unspecified organism (principal); J18.9 Pneumonia, unspecified organism; E87.2 Acidosis; F72 Severe intellectual disabilities; F84.0 Autistic disorder; J98.19 Other pulmonary collapse; E11.65 Type 2 diabetes mellitus with hyperglycemia; E66.9 Obesity, unspecified; Z68.33 Body mass index [BMI] 33.0-33.9, adult; E78.5 Hyperlipidemia, unspecified; F31.9 Bipolar disorder, unspecified; F42.9 Obsessive-compulsive disorder, unspecified; G40.909 Epilepsy, unspecified, not intractable, without status epilepticus; I11.9 Hypertensive heart disease without heart failure; L02.92 Furuncle, unspecified; T17.990A Other foreign object in respiratory tract, part unspecified in causing asphyxiation, initial encounter; T38.0X5A Adverse effect of glucocorticoids and synthetic analogues, initial encounter; Z79.4 Long term (current) use of insulin; Z79.899 Other long term (current) drug therapy; Z86.14 Personal history of Methicillin resistant Staphylococcus aureus infection; Z87.01 Personal history of pneumonia (recurrent); Z91.013 Allergy to seafood
CPT/HCPCS: 31624; 36415; 71045; 71046; 74018; 80048; 80053; 81003; 83605; 83880; 84484; 84703; 85025; 85027; 85610; 85730; 86738; 87040; 87070; 87102; 87116; 87205; 87206; 87252; 87449; 87496; 87498; 87502; 87529; 87634; 87798; 88108; 88305; 89050; 93005; 93306; 94640; 94667; 94668; 94760; 96361; 96374; 96375; 99285

== ENCOUNTER 2021-06-09 07:31 | Inpatient (IN) | payer OTHER ==
[2021-06-09 07:38] LABS: Glucose,Whole Blood 121 mg/dL (75-99)
[2021-06-09] MEDS ORDERED: ACETAMINOPHEN TAB 500 MG TAB PO STA (07:41)
[2021-06-09] MEDS ORDERED: AZITHROMYCIN 500 MG in SODIUM CHLORIDE 0.9% 250 ML IVPB STA (07:42)
[2021-06-09] MEDS ORDERED: IPRATROPIUM-ALBUTEROL 3 ML NEB INHALATION STA (07:42)
--- NOTE | 2021-06-09 07:55 | ED ---
SOB HPI - General Chief Complaint: Shortness of Breath Stated Complaint: AALIYAH Time Seen by Provider: 06/09/21 07:35 Source: EMS, Caregiver Mode of arrival: EMS Limitations: no limitations - History of Present Illness Initial Comments: 36-year-old patient with history of diabetes, autism, nonverbal who presents to the emergency department from her [facility] home. She has had worsening shortness of breath over the past 3-4 days per staff. She is prone to pneumonia. EMS arrived and found the patient to have a saturation of 83% on room air. Patient was warm to the touch. She is withdrawn which is the normal baseline mentation from the patient. There are no other alleviating, precipitating or modifying factors - Related Data Home Medications Medication Instructions Recorded Confirmed Ammonium Lactate Cream [Lac-Hydrin 1 applic TOPICAL DAILY 05/19/19 06/09/21 12% Cream] Divalproex ER [Depakote ER] 1,000 mg PO HS@2100 05/19/19 06/09/21 Divalproex ER [Depakote ER] 250 mg PO BID@0800,1600 05/19/19 06/09/21 Docusate Sodium [Dok] 100 mg PO DAILY@0800 05/19/19 06/09/21 EPINEPHrine (Auto Inject) [Epipen] 0.3 mg IM ONCE PRN 05/19/19 06/09/21 Furosemide [Lasix] 40 mg PO DAILY@0800 05/19/19 06/09/21 Insulin Glargine [Lantus Vial] 40 unit SQ DAILY@0800 05/19/19 06/09/21 L.acidoph,Paracasei, B.lactis 1 cap PO DAILY@0800 05/19/19 06/09/21 [Probiotic] LORazepam [Ativan] 0.5 mg PO DAILY@0800 05/19/19 06/09/21 Loratadine [Claritin] 10 mg PO DAILY@0800 05/19/19 06/09/21 Naltrexone HCl [Revia] 100 mg PO HS@2100 05/19/19 06/09/21 Potassium Chloride [Klor-Con 20] 20 meq PO DAILY@0800 05/19/19 06/09/21 Propranolol [Inderal] 20 mg PO BID@0800,2100 05/19/19 06/09/21 cloZAPine [Clozaril] 100 mg PO HS@2100 05/19/19 06/09/21 fluvoxaMINE [Luvox] 50 mg PO HS@2100 05/19/19 06/09/21 medroxyPROGESTERone [Depo-Provera] 150 mg IM Q90D 05/19/19 06/09/21 Albuterol Nebulized [Ventolin 2.5 mg INHALATION RT-Q6H 06/09/21 06/09/21 Nebulized] Albuterol Nebulized [Ventolin 2.5 mg INHALATION RT-Q6H PRN 06/09/21 06/09/21 Nebulized] Atorvastatin [Lipitor] 20 mg PO HS@2100 06/09/21 06/09/21 Chlorhexidine Gluconate [Hibiclens] 1 applic TOPICAL DAILY@0800 06/09/21 06/09/21 Cholecalciferol [Vitamin D3 (25 25 mcg PO DAILY@0800 06/09/21 06/09/21 Mcg = 1000 Iu)] Divalproex ER [Depakote ER] 250 mg PO BID@0800,1600 06/09/21 06/09/21 Glycopyrrolate 1 mg PO HS@209906/09/21 06/09/21 Insulin Glargine,Hum.rec.anlog 20 unit SQ HS@209906/09/21 06/09/21 [Lantus Solostar Pen] LORazepam [Ativan] 0.5 mg PO DAILY PRN 06/09/21 06/09/21 Liraglutide [Victoza 3-Wolfgang] 1.8 mg SQ DAILY@0800 06/09/21 06/09/21 Montelukast [Singulair] 10 mg PO HS@209906/09/21 06/09/21 metFORMIN HCL 1,000 mg PO BID@0800,2100 06/09/21 06/09/21 Allergies Allergy/AdvReac Type Severity Reaction Status Date / Time shellfish derived [Shellfish] Allergy Anaphylaxis Verified 06/09/21 08:34 Review of Systems ROS Statement: Those systems with pertinent positive or pertinent negative responses have been documented in the HPI. ROS Other: All systems not noted in ROS Statement are negative. Past Medical History Past Medical History: Diabetes Mellitus, Hypertension Additional Past Medical History / Comment(s): Autistic, OCD, Bipolar 1, Severe intellectual disability History of Any Multi-Drug Resistant Organisms: None Reported Date of last positivie culture/infection: 2018 Past Surgical History: Unable to Obtain Additional Past Surgical History / Comment(s): Dental sx, recent boil I/D to left axilla 03/2019 Past Anesthesia/Blood Transfusion Reactions: No Reported Reaction Past Psychological History: Bipolar Smoking Status: Never smoker Past Alcohol Use History: None Reported Past Drug Use History: None Reported - Past Family History Mother Family Medical History: Unable to Obtain Father Family Medical History: Unable to Obtain General Exam Limitations: language barrier General appearance: alert, in no apparent distress Head exam: Present: atraumatic, normocephalic Eye exam: Present: normal appearance, PERRL, EOMI. Absent: scleral icterus, conjunctival injection, periorbital swelling ENT exam: Present: normal exam, mucous membranes moist Neck exam: Present: normal inspection. Absent: tenderness, meningismus, lymphadenopathy Respiratory exam: Present: rales Cardiovascular Exam: Present: normal rhythm, tachycardia GI/Abdominal exam: Present: soft, normal bowel sounds. Absent: distended, tenderness, guarding, rebound, rigid Neurological exam: Present: alert Psychiatric exam: Present: flat affect Skin exam: Present: warm, diaphoretic Course Vital Signs 06/09/21 06/09/21 06/09/21 07:32 07:40 09:37 Temperature 101.2 F H Pulse Rate 109 H 102 H Respiratory 18 18 18 Rate Blood Pressure 113/76 105/63 O2 Sat by Pulse 97 95 Oximetry Medical Decision Making - Medical Decision Making Upon arrival patient is placed into room 11. She is on a nonrebreather. Laboratory studies are obtained and within normal limits. Patient swabbed for Covid which is positive. Chest x-ray demonstrates a diffuse pneumonia. Due to her history of aspiration she is covered with antibiotics. Patient given Motrin for fever control. Will be admitted due to hypoxia. Paged Dr. Mcgrath and awaiting callback. - Lab Data Result diagrams: 06/09/21 07:52 06/09/21 07:52 Lab Results 06/09/21 06/09/21 06/09/21 Range/Units 07:37 07:52 07:52 WBC 7.0 (3.8-10.6) k/uL RBC 3.95 (3.80-5.40) m/uL Hgb 11.8 (11.4-16.0) gm/dL Hct 35.6 (34.0-46.0) % MCV 90.1 (80.0-100.0) fL MCH 29.8 (25.0-35.0) pg MCHC 33.1 (31.0-37.0) g/dL RDW 15.1 (11.5-15.5) % Plt Count 166 (150-450) k/uL MPV 7.6 Neutrophils % 54 % Lymphocytes % 32 % Monocytes % 9 % Eosinophils % 1 % Basophils % 1 % Neutrophils # 3.8 (1.3-7.7) k/uL Lymphocytes # 2.2 (1.0-4.8) k/uL Monocytes # 0.6 (0-1.0) k/uL Eosinophils # 0.1 (0-0.7) k/uL Basophils # 0.0 (0-0.2) k/uL Sodium 138 (137-145) mmol/L Potassium 3.9 (3.5-5.1) mmol/L Chloride 103 (98-107) mmol/L Carbon Dioxide 25 (22-30) mmol/L Anion Gap 10 mmol/L BUN 9 (7-17) mg/dL Creatinine 0.76 (0.52-1.04) mg/dL Est GFR (CKD-EPI)AfAm >90 (>60 ml/min/1.73 sqM) Est GFR (CKD-EPI)NonAf >90 (>60 ml/min/1.73 sqM) Glucose 126 H (74-99) mg/dL POC Glucose (mg/dL) 121 H (75-99) mg/dL POC Glu Resource Manager Forester ID Olga Amin Plasma Lactic Acid Anil (0.7-2.0) mmol/L Calcium 8.5 (8.4-10.2) mg/dL Total Bilirubin 0.2 (0.2-1.3) mg/dL AST 25 (14-36) U/L ALT 12 (4-34) U/L Alkaline Phosphatase 66 (38-126) U/L Total Protein 6.7 (6.3-8.2) g/dL Albumin 3.2 L (3.5-5.0) g/dL Valproic Acid 71.8 ug/mL Coronavirus (PCR) (Not Detectd) 06/09/21 06/09/21 Range/Units 07:52 07:52 WBC (3.8-10.6) k/uL RBC (3.80-5.40) m/uL Hgb (11.4-16.0) gm/dL Hct (34.0-46.0) % MCV (80.0-100.0) fL MCH (25.0-35.0) pg MCHC (31.0-37.0) g/dL RDW (11.5-15.5) % Plt Count (150-450) k/uL MPV Neutrophils % % Lymphocytes % % Monocytes % % Eosinophils % % Basophils % % Neutrophils # (1.3-7.7) k/uL Lymphocytes # (1.0-4.8) k/uL Monocytes # (0-1.0) k/uL Eosinophils # (0-0.7) k/uL Basophils # (0-0.2) k/uL Sodium (137-145) mmol/L Potassium (3.5-5.1) mmol/L Chloride (98-107) mmol/L Carbon Dioxide (22-30) mmol/L Anion Gap mmol/L BUN (7-17) mg/dL Creatinine (0.52-1.04) mg/dL Est GFR (CKD-EPI)AfAm (>60 ml/min/1.73 sqM) Est GFR (CKD-EPI)NonAf (>60 ml/min/1.73 sqM) Glucose (74-99) mg/dL POC Glucose (mg/dL) (75-99) mg/dL POC Glu Resource Manager Forester ID Plasma Lactic Acid Anil 1.1 (0.7-2.0) mmol/L Calcium (8.4-10.2) mg/dL Total Bilirubin (0.2-1.3) mg/dL AST (14-36) U/L ALT (4-34) U/L Alkaline Phosphatase (38-126) U/L Total Protein (6.3-8.2) g/dL Albumin (3.5-5.0) g/dL Valproic Acid ug/mL Coronavirus (PCR) Detected A (Not Detectd) - EKG Data EKG Comments: EKG demonstrates a sinus tachycardia with a ventricular rate of 105. TX interval 166. QRS 88. QTC 495. No acute ST segment elevations or depressions Disposition Clinical Impression: Hypoxia, Pneumonia, COVID-19 Disposition: ADMITTED IP TO THIS HOSP Condition: Stable Is patient prescribed a controlled substance at d/c from ED?: No Decision to Admit Reason: Admit from EC Decision Date: 06/09/21 Decision Time: 09:28
[2021-06-09] MEDS ORDERED: IBUPROFEN 600 MG TAB PO STA (07:56)
[2021-06-09] MEDS: SODIUM CHLORIDE 0.9% 1,000 ML IV SCH ×4 (08:23→19:34)
[2021-06-09 08:39] LABS: Basophils % (A) 1 %; Eosinophils # (A) 0.1 k/uL (0-0.7); Eosinophils % (A) 1 %; HCT 35.6 % (34.0-46.0); HGB 11.8 gm/dL (11.4-16.0); Lymphocytes # (A) 2.2 k/uL (1.0-4.8); Lymphocytes % (A) 32 %; MCH 29.8 pg (25.0-35.0); MCHC 33.1 g/dL (31.0-37.0); MCV 90.1 fL (80.0-100.0); Mean Platelet Volume 7.6; Monocytes # (A) 0.6 k/uL (0-1.0); Monocytes % (A) 9 %; Neutrophils # (A) 3.8 k/uL (1.3-7.7); Neutrophils % (A) 54 %; Platelet Count 166 k/uL (150-450); RBC 3.95 m/uL (3.80-5.40); RDW 15.1 % (11.5-15.5)
[2021-06-09 08:58] LABS: ALT 12 U/L (4-34); AST 25 U/L (14-36); African American GFR (CKD) >90 (>60 ml/min/1.73 sqM); Albumin 3.2 g/dL (3.5-5.0); Alkaline Phosphatase 66 U/L (38-126); Anion Gap 10 mmol/L; Blood Urea Nitrogen 9 mg/dL (7-17); Calcium 8.5 mg/dL (8.4-10.2); Carbon Dioxide 25 mmol/L (22-30); Chloride 103 mmol/L (98-107); Glucose 126 mg/dL (74-99); Non-African American GFR(CKD) >90 (>60 ml/min/1.73 sqM); Potassium 3.9 mmol/L (3.5-5.1); Sodium 138 mmol/L (137-145); Total Bilirubin 0.2 mg/dL (0.2-1.3); Total Protein 6.7 g/dL (6.3-8.2)
[2021-06-09] MEDS ORDERED: ALBUTEROL HFA INHALER INHALATION STA (09:01)
[2021-06-09 09:03] LABS: Valproic Acid (Depakene) 71.8 ug/mL
--- NOTE | 2021-06-09 09:23 | XR ---
EXAMINATION TYPE: XR chest 2V DATE OF EXAM: 06/09/2021 COMPARISON: 05/26/2020 TECHNIQUE: PA and lateral views submitted. HISTORY: Shortness of breath FINDINGS: Diffuse interstitial pattern with bilateral infiltrate and pleural effusion. Biapical pleural thicken ing. Heart size normal. IMPRESSION: 1. Bilateral infiltrate correlate for CHF versus diffuse pneumonia.
[2021-06-09] MEDS ORDERED: NALOXONE 0.4 MG/ML 1 ML VIAL IV PRN (09:28)
[2021-06-09] MEDS ORDERED: IBUPROFEN 400 MG TAB PO PRN (09:38)
--- NOTE | 2021-06-09 12:37 | P.HPIM ---
History of Present Illness H&P Date: 06/09/21 Chief Complaint: Severe dyspnea and shortness of breath, pneumonitis, possible aspiration pn HISTORY OF PRESENT ILLNESS 36-year-old female with advanced test taken OCD with severe intellectual disability, lives in a snf has been having worsening fever or chills cough with mild hypoxia for the last 3 days brought to the emergency department at [facility] with a fever of 102 at the time where was seen and evaluated found to have COVID-19 infection by PCR, blood sugar was stable, her white blood cell was 7000, chest x-ray showed bilateral infiltrate correlate with CHF versus diffuse pneumonia most likely sign of COVID-19 pneumonitis. Patient was started on zinc, dexamethasone, vitamin C vitamin D, anticoagulation with Lovenox patient be started on gram-negative coverage for pneumonia will be seen pulmonary probably start an antiviral medication. REVIEW OF SYSTEMS Constitutional: Positive fever or chills and tiredness fatigue, patient is nonverbal and plan otherwise. EENT: Positive slight congestion in the nose andthroat cavity. Lungs: Positive shortness of breath cough wheezes. Cardiovascular: Mild palpitation with edema with no chest pain. Abdominal: No nausea vomiting or diarrhea. Genitourinary: Slight worsening incontinence. Musculoskeletal: Nonverbal complaint. Integumentary: Nonverbal no complaint. Neurologic: Nonverbal no complaint. Psychiatric: Nonverbal no complaint. Endocrine: Nonverbal no complaint. SOCIAL HISTORY No smoking, no alcohol abuse, no marijuana use, patient is in wheelchair does not use walker or cane. FAMILY HISTORY Patient is adopted no family history. PHYSICAL EXAMINATION Gen: This is a 56-year-old lady that intellectual disability does not look in any respiratory distress. HEENT: Slight congestion and sinus cavity and about her throat. NECK: Supple. No JVD. No lymphadenopathy. No thyromegaly. LUNGS: Decreased breath sound bilaterally, rhonchi hasn't expiratory wheezes. HEART: Regular rate and rhythm. No murmur. ABDOMEN: Soft. Bowel sounds are present. No masses. No tenderness. EXTREMITIES: Trace edema with no rash. NEUROLOGICAL: Patient is awake moving her extremity no interaction otherwise not baseline with her intellectual disability. ASSESSMENT AND PLAN 1. COVID-19 pneumonitis: Patient be seen pulmonary, continue oxygen, updraft treatment, continue multivitamins patient might benefit from doing antiviral medication. 2 hypoxia and shortness of breath: Oxygen along with updraft treatment. 3 type 2 diabetes: Has been on metformin 1000 mg twice a day along with Victoza 1.8 mg weekly Lantus 40 units daily and 20 units in the evening. Continue Accu- Chek with sliding scales coverage. 4 hypertension: Remain on Inderal 20 mg twice a day with her diabetes patient should be on a smaller dose of NATY inhibitor as well. 5 hyperlipidemia: Has been on atorvastatin 20 mg a day. 6 chronic edema: Has been on Lasix 40 mg daily. 7 atypical seizure and behavioral problem: Patient has been on Depakote total of 2000 mg a day continue medication. 8 bipolar disorders with behavioral issue: Has been on Clozaril 100 mg daily at bedtime along with Luvox 50 mg at bedtime still on Ativan on an as-needed basis along with Depakote. 9 history of asthma: Has been on Singulair along with Ventolin nebulizer. 10 GI prophylaxis: Patient be started on pantoprazole 40 mg a day. 11 DVT prophylaxis: Lovenox subcutaneous will be done. 12. COVID-19 testing. Was positive and patient will be hospitalized in pandemic season. Patient will be admitted to the hospital for a minimum of 2 night stay. Past Medical History Past Medical History: Diabetes Mellitus, Hypertension Additional Past Medical History / Comment(s): Autistic, OCD, Bipolar 1, Severe intellectual disability History of Any Multi-Drug Resistant Organisms: None Reported Date of last positivie culture/infection: 2018 Past Surgical History: Unable to Obtain Additional Past Surgical History / Comment(s): Dental sx, recent boil I/D to left axilla 03/2019 Past Anesthesia/Blood Transfusion Reactions: No Reported Reaction Past Psychological History: Bipolar Smoking Status: Never smoker Past Alcohol Use History: None Reported Past Drug Use History: None Reported - Past Family History Mother Family Medical History: Unable to Obtain Father Family Medical History: Unable to Obtain Medications and Allergies Home Medications Medication Instructions Recorded Confirmed Type Ammonium Lactate Cream [Lac-Hydrin 1 applic TOPICAL DAILY 05/19/19 06/09/21 History 12% Cream] Divalproex ER [Depakote ER] 1,000 mg PO HS@2100 05/19/19 06/09/21 History Divalproex ER [Depakote ER] 250 mg PO BID@0800,1600 05/19/19 06/09/21 History Docusate Sodium [Dok] 100 mg PO DAILY@0800 05/19/19 06/09/21 History EPINEPHrine (Auto Inject) [Epipen] 0.3 mg IM ONCE PRN 05/19/19 06/09/21 History Furosemide [Lasix] 40 mg PO DAILY@0800 05/19/19 06/09/21 History Insulin Glargine [Lantus Vial] 40 unit SQ DAILY@0800 05/19/19 06/09/21 History L.acidoph,Paracasei, B.lactis 1 cap PO DAILY@0800 05/19/19 06/09/21 History [Probiotic] LORazepam [Ativan] 0.5 mg PO DAILY@0800 05/19/19 06/09/21 History Loratadine [Claritin] 10 mg PO DAILY@0800 05/19/19 06/09/21 History Naltrexone HCl [Revia] 100 mg PO HS@209905/19/19 06/09/21 History Potassium Chloride [Klor-Con 20] 20 meq PO DAILY@0800 05/19/19 06/09/21 History Propranolol [Inderal] 20 mg PO BID@0800,209905/19/19 06/09/21 History cloZAPine [Clozaril] 100 mg PO HS@209905/19/19 06/09/21 History fluvoxaMINE [Luvox] 50 mg PO HS@209905/19/19 06/09/21 History medroxyPROGESTERone [Depo-Provera] 150 mg IM Q90D 05/19/19 06/09/21 History Albuterol Nebulized [Ventolin 2.5 mg INHALATION RT-Q6H 06/09/21 06/09/21 History Nebulized] Albuterol Nebulized [Ventolin 2.5 mg INHALATION RT-Q6H PRN 06/09/21 06/09/21 History Nebulized] Atorvastatin [Lipitor] 20 mg PO HS@209906/09/21 06/09/21 History Chlorhexidine Gluconate [Hibiclens] 1 applic TOPICAL DAILY@0800 06/09/21 History Cholecalciferol [Vitamin D3 (25 25 mcg PO DAILY@0800 06/09/21 06/09/21 History Mcg = 1000 Iu)] Divalproex ER [Depakote ER] 250 mg PO BID@0800,1600 06/09/21 06/09/21 History Glycopyrrolate 1 mg PO HS@209906/09/21 06/09/21 History Insulin Glargine,Hum.rec.anlog 20 unit SQ HS@209906/09/21 06/09/21 History [Lantus Solostar Pen] LORazepam [Ativan] 0.5 mg PO DAILY PRN 06/09/21 06/09/21 History Liraglutide [Victoza 3-Wolfgang] 1.8 mg SQ DAILY@0800 06/09/21 06/09/21 History Montelukast [Singulair] 10 mg PO HS@209906/09/21 06/09/21 History metFORMIN HCL 1,000 mg PO BID@0800,2100 06/09/21 06/09/21 History Allergies Allergy/AdvReac Type Severity Reaction Status Date / Time shellfish derived [Shellfish] Allergy Anaphylaxis Verified 06/09/21 08:34 Physical Exam Vitals: Vital Signs Temp Pulse Resp BP Pulse Ox 06/09/21 11:34 97 20 106/70 94 L 06/09/21 09:37 102 H 18 105/63 95 06/09/21 07:40 18 06/09/21 07:32 101.2 F H 109 H 18 113/76 97 Intake and Output 06/08/21 06/09/21 06/09/21 22:59 06:59 14:59 Other: Weight 72.575 kg Results CBC & Chem 7: 06/09/21 07:52 06/09/21 07:52 Labs: Abnormal Lab Results - Last 24 Hours (Table) 06/09/21 06/09/21 06/09/21 Range/Units 07:37 07:52 07:52 Glucose 126 H (74-99) mg/dL POC Glucose (mg/dL) 121 H (75-99) mg/dL Albumin 3.2 L (3.5-5.0) g/dL Coronavirus (PCR) Detected A (Not Detectd)
[2021-06-09 16:39] LABS: Glucose,Whole Blood 156 mg/dL (75-99)
[2021-06-09] MEDS: INSULIN ASPART (NovoLOG) 100 UNIT/ML VIAL SQ SCH ×3 (16:40→21:42)
[2021-06-09] MEDS: DEXAMETHASONE SOD PHOSPHATE 10 MG/ML 1 ML VIAL IVP SCH (16:51)
[2021-06-09] MEDS: ENOXAPARIN 40 MG/0.4 ML SYRINGE SQ SCH (16:51)
--- NOTE | 2021-06-09 16:51 | P.CNPUL ---
History of Present Illness Consult date: 06/09/21 Requesting physician: Simeon Mcgrath Reason for consult: dyspnea, hypoxemia, pneumonia, abnormal CXR/CT Chief complaint: Hypoxia, shortness of breath History of present illness: 36-year-old female patient with past medical history of hypertension, diabetes mellitus type 2, autism, bipolar disorder, cognitive impairment, who lives in a [facility], was brought into the hospital on 06/09/2021 with worsening shortness of breath over the last 3-4 days. Patient is prone to pneumonia. On arrival patient's O2 saturation was 83% on room air, and she felt warm to touch. She is very withdrawn, she follows commands easily however her verbal responses are limited. The caregiver stepped outside and her vaccination status for COVID-19 is unknown, she tested positive for COVID-19 in the emergency department. Initially she was placed on 100% nonrebreather mask, subsequently her FiO2 has been weaned down and is down to 2 L of oxygen pulse ox is 96%, she is febrile with a temp of 101.2F. Her chest x-ray shows bilateral diffuse interstitial infiltrates. Reportedly onset of symptoms was 3-4 days ago. Patient was started on azithromycin and Rocephin in the emergency department, she was started on Decadron 6 mg daily, prophylactic Lovenox, she is receiving IV fluids at a rate of 75 ML per hour. She is currently awake and alert, does not appear to be in any acute distress, she is resting comfortably on a gurney in the emergency department. Currently down to 2 L of oxygen sats at 96% Review of Systems All systems: negative Constitutional: Denies chills, Denies fever Eyes: denies blurred vision, denies pain Ears, nose, mouth and throat: Denies headache, Denies sore throat Cardiovascular: Denies chest pain, Denies shortness of breath Respiratory: Denies cough Gastrointestinal: Denies abdominal pain, Denies diarrhea, Denies nausea, Denies vomiting Genitourinary: Denies dysuria, Denies hematuria Musculoskeletal: Denies myalgias Integumentary: Denies pruritus, Denies rash Neurological: Denies numbness, Denies weakness Psychiatric: Denies anxiety, Denies depression Endocrine: Denies fatigue, Denies weight change Past Medical History Past Medical History: Diabetes Mellitus, Hypertension Additional Past Medical History / Comment(s): Autistic, OCD, Bipolar 1, Severe intellectual disability History of Any Multi-Drug Resistant Organisms: None Reported Date of last positivie culture/infection: 2018 Past Surgical History: Unable to Obtain Additional Past Surgical History / Comment(s): Dental sx, recent boil I/D to left axilla 03/2019 Past Anesthesia/Blood Transfusion Reactions: No Reported Reaction Past Psychological History: Bipolar Smoking Status: Never smoker Past Alcohol Use History: None Reported Past Drug Use History: None Reported - Past Family History Mother Family Medical History: Unable to Obtain Father Family Medical History: Unable to Obtain Medications and Allergies Home Medications Medication Instructions Recorded Confirmed Type Ammonium Lactate Cream [Lac-Hydrin 1 applic TOPICAL DAILY 05/19/19 06/09/21 History 12% Cream] Divalproex ER [Depakote ER] 1,000 mg PO HS@209905/19/19 06/09/21 History Divalproex ER [Depakote ER] 250 mg PO BID@0800,1600 05/19/19 06/09/21 History Docusate Sodium [Dok] 100 mg PO DAILY@0800 05/19/19 06/09/21 History EPINEPHrine (Auto Inject) [Epipen] 0.3 mg IM ONCE PRN 05/19/19 06/09/21 History Furosemide [Lasix] 40 mg PO DAILY@0800 05/19/19 06/09/21 History Insulin Glargine [Lantus Vial] 40 unit SQ DAILY@0800 05/19/19 06/09/21 History L.acidoph,Paracasei, B.lactis 1 cap PO DAILY@0800 05/19/19 06/09/21 History [Probiotic] LORazepam [Ativan] 0.5 mg PO DAILY@0800 05/19/19 06/09/21 History Loratadine [Claritin] 10 mg PO DAILY@0800 05/19/19 06/09/21 History Naltrexone HCl [Revia] 100 mg PO HS@209905/19/19 06/09/21 History Potassium Chloride [Klor-Con 20] 20 meq PO DAILY@0800 05/19/19 06/09/21 History Propranolol [Inderal] 20 mg PO BID@0800,2100 05/19/19 06/09/21 History cloZAPine [Clozaril] 100 mg PO HS@209905/19/19 06/09/21 History fluvoxaMINE [Luvox] 50 mg PO HS@209905/19/19 06/09/21 History medroxyPROGESTERone [Depo-Provera] 150 mg IM Q90D 05/19/19 06/09/21 History Albuterol Nebulized [Ventolin 2.5 mg INHALATION RT-Q6H 06/09/21 06/09/21 History Nebulized] Albuterol Nebulized [Ventolin 2.5 mg INHALATION RT-Q6H PRN 06/09/21 06/09/21 History Nebulized] Atorvastatin [Lipitor] 20 mg PO HS@209906/09/21 06/09/21 History Chlorhexidine Gluconate [Hibiclens] 1 applic TOPICAL DAILY@0800 06/09/21 06/09/21 History Cholecalciferol [Vitamin D3 (25 25 mcg PO DAILY@0800 06/09/21 06/09/21 History Mcg = 1000 Iu)] Divalproex ER [Depakote ER] 250 mg PO BID@0800,1600 06/09/21 06/09/21 History Glycopyrrolate 1 mg PO HS@209906/09/21 06/09/21 History Insulin Glargine,Hum.rec.anlog 20 unit SQ HS@209906/09/21 06/09/21 History [Lantus Solostar Pen] LORazepam [Ativan] 0.5 mg PO DAILY PRN 06/09/21 06/09/21 History Liraglutide [Victoza 3-Wolfgang] 1.8 mg SQ DAILY@0800 06/09/21 06/09/21 History Montelukast [Singulair] 10 mg PO HS@209906/09/21 06/09/21 History metFORMIN HCL 1,000 mg PO BID@0800,2100 06/09/21 06/09/21 History Allergies Allergy/AdvReac Type Severity Reaction Status Date / Time shellfish derived [Shellfish] Allergy Anaphylaxis Verified 06/09/21 08:34 Physical Exam Vitals: Vital Signs Temp Pulse Resp BP Pulse Ox 06/09/21 12:28 100 18 106/72 96 06/09/21 11:34 97 20 106/70 94 L 06/09/21 09:37 102 H 18 105/63 95 06/09/21 07:40 18 06/09/21 07:32 101.2 F H 109 H 18 113/76 97 Intake and Output 06/09/21 06/09/21 06/09/21 06:59 14:59 22:59 Other: Weight 72.575 kg GENERAL EXAM: Alert, very pleasant, 36-year-old -[place] female currently on 2 L of oxygen with pulse ox of 96%, resting comfortably in the gurney in the emergency department, comfortable in no apparent distress. She has a site safety coordinator at the bedside for safety precautions, she is fairly cooperative but gets up unassisted. HEAD: Normocephalic/atraumatic. EYES: Normal reaction of pupils, equal size. Conjunctiva pink, sclera white. NOSE: Clear with pink turbinates. THROAT: No erythema or exudates. NECK: No masses, no JVD, no thyroid enlargement, no adenopathy. CHEST: No chest wall deformity. Symmetrical expansion. LUNGS: Equal air entry with basilar crackles CVS: Regular rate and rhythm, normal S1 and S2, no gallops, no murmurs, no rubs ABDOMEN: Soft, nontender. No hepatosplenomegaly, normal bowel sounds, no guarding or rigidity. EXTREMITIES: No clubbing, no edema, no cyanosis, 2+ pulses and upper and lower extremities. MUSCULOSKELETAL: Muscle strength and tone normal. SPINE: No scoliosis or deformity SKIN: No rashes CENTRAL NERVOUS SYSTEM: Alert and oriented -3. No focal deficits, tone is n ormal in all 4 extremities. PSYCHIATRIC: Alert and oriented -3. Appropriate affect. Intact judgment and insight. Results - Laboratory Findings CBC and BMP: 06/09/21 07:52 06/09/21 07:52 Abnormal lab findings: Abnormal Labs 06/09/21 06/09/21 06/09/21 07:37 07:52 07:52 Glucose 126 H POC Glucose (mg/dL) 121 H Albumin 3.2 L Coronavirus (PCR) Detected A - Diagnostic Findings Chest x-ray: report reviewed, image reviewed Additional studies: EKG reviewed Assessment and Plan Plan: Assessment: #1. Acute hypoxic respiratory failure related to acute COVID-19 pneumonia, with onset of symptoms 3-4 days ago, obese started on Remdesivir on 06/09/2021 #2. History of autism #3. Bipolar disorder #4. Hypertension #5. Hyperlipidemia #6. History of chronic bronchial asthma, unspecified #7. Severe cognitive impairment, and patient is a resident of a [facility] #8. Diabetes mellitus type 2 #9. Previous MRSA infection with multiple postoperative infections underneath her armpits Plan: Continue Decadron Continue Lovenox We'll start Remdesivir Obtain pro-calcitonin level, d-dimer, inflammatory markers We'll continue to follow her clinical course and make further recommendations I performed a history & physical examination of the patient and discussed their management with my nurse practitioner, Spring Kothari. I reviewed the nurse practitioner's note and agree with the documented findings and plan of care. Lung sounds are positive for diminished breath sounds throughout the lung [place]. The findings and the impression was discussed with the patient. I attest to the documentation by the nurse practitioner. Time with Patient: Greater than 30
[2021-06-09] MEDS: ASCORBIC ACID 500 MG TAB PO SCH (16:52)
[2021-06-09] MEDS: ZINC SULFATE 220 MG CAP PO SCH (16:52)
[2021-06-09] MEDS: CHOLECALCIFEROL 25 MCG (1000 IU) TABLET PO SCH (16:52)
[2021-06-09] MEDS ORDERED: REMDESIVIR 200 MG in SODIUM CHLORIDE 0.9% 250 ML IVPB ONE (18:00)
[2021-06-09 21:06] LABS: Appearance,Urine Clear (Clear); Bilirubin,Urine Negative (Negative); Blood,Urine Negative (Negative); Color,Urine Light Yellow; Glucose,Urine (UA) 4+ (Negative); Ketones,Urine Trace (Negative); Leukocyte Esterase,Urine Negative (Negative); Nitrite,Urine Negative (Negative); PH, Urine 6.5 (5.0-8.0); Protein,Urine Negative (Negative); Specific Gravity,Urine 1.015 (1.001-1.035); Urobilinogen,Urine <2.0 mg/dL (<2.0)
[2021-06-09 21:52] LABS: Glucose,Whole Blood 236 mg/dL (75-99)
[2021-06-10 07:43] LABS: Basophils % (A) 0 %; Eosinophils % (A) 0 %; HCT 35.1 % (34.0-46.0); HGB 11.3 gm/dL (11.4-16.0); Lymphocytes # (A) 1.2 k/uL (1.0-4.8); Lymphocytes % (A) 19 %; MCH 30.1 pg (25.0-35.0); MCHC 32.2 g/dL (31.0-37.0); MCV 93.5 fL (80.0-100.0); Mean Platelet Volume 7.8; Monocytes # (A) 0.5 k/uL (0-1.0); Monocytes % (A) 8 %; Neutrophils # (A) 4.6 k/uL (1.3-7.7); Neutrophils % (A) 72 %; Platelet Count 176 k/uL (150-450); RBC 3.76 m/uL (3.80-5.40); RDW 14.9 % (11.5-15.5); WBC 6.4 k/uL (3.8-10.6)
[2021-06-10 09:39] LABS: Glucose,Whole Blood 185 mg/dL (75-99)
[2021-06-10] MEDS: DEXAMETHASONE SOD PHOSPHATE 10 MG/ML 1 ML VIAL IVP SCH (09:41)
[2021-06-10] MEDS: INSULIN ASPART (NovoLOG) 100 UNIT/ML VIAL SQ SCH ×4 (09:41→20:52)
[2021-06-10] MEDS: ASCORBIC ACID 500 MG TAB PO SCH (09:41)
[2021-06-10] MEDS: ENOXAPARIN 40 MG/0.4 ML SYRINGE SQ SCH (09:41)
[2021-06-10] MEDS: CHOLECALCIFEROL 25 MCG (1000 IU) TABLET PO SCH (09:42)
[2021-06-10] MEDS: ZINC SULFATE 220 MG CAP PO SCH (09:42)
[2021-06-10 10:22] LABS: African American GFR (CKD) >90 (>60 ml/min/1.73 sqM); Anion Gap 8 mmol/L; Blood Urea Nitrogen 12 mg/dL (7-17); Carbon Dioxide 25 mmol/L (22-30); Chloride 107 mmol/L (98-107); Glucose 163 mg/dL (74-99); LDH 603 U/L (313-618); Non-African American GFR(CKD) >90 (>60 ml/min/1.73 sqM); Potassium 4.6 mmol/L (3.5-5.1); Sodium 140 mmol/L (137-145)
[2021-06-10 12:31] LABS: Glucose,Whole Blood 218 mg/dL (75-99)
--- NOTE | 2021-06-10 12:51 | P.PN ---
Subjective Progress Note Date: 06/10/21 Principal diagnosis: Dyspnea, COVID-19 36-year-old female patient with past medical history of hypertension, diabetes mellitus type 2, autism, bipolar disorder, cognitive impairment, who lives in a [facility], was brought into the hospital on 06/09/2021 with worsening shortness of breath over the last 3-4 days. Patient is prone to pneumonia. On arrival patient's O2 saturation was 83% on room air, and she felt warm to touch. She is very withdrawn, she follows commands easily however her verbal responses are limited. The caregiver stepped outside and her vaccination status for COVID-19 is unknown, she tested positive for COVID-19 in the emergency department. Initially she was placed on 100% nonrebreather mask, subsequently her FiO2 has been weaned down and is down to 2 L of oxygen pulse ox is 96%, she is febrile with a temp of 101.2F. Her chest x-ray shows bilateral diffuse interstitial infiltrates. Reportedly onset of symptoms was 3-4 days ago. Patient was started on azithromycin and Rocephin in the emergency department, she was started on Decadron 6 mg daily, prophylactic Lovenox, she is receiving IV fluids at a rate of 75 ML per hour. She is currently awake and alert, does not appear to be in any acute distress, she is resting comfortably on a gurney in the emergency department. Currently down to 2 L of oxygen sats at 96%. On 06/10/2021 patient seen in follow-up in the emergency department, she still awaiting a bed on medical surgical floor. She is breathing very comfortably, she is awake, follows command, she has limited verbal responses, but appears to be in no acute distress, room air pulse ox is 97%, no fever or chills, vital signs have been stable overnight, remains on Decadron 6 mg daily, she is on COVID-19 vitamins including vitamin C, vitamin D, and zinc. She is on Remdesivir treatment and today is day 2 of treatment. Her labs have been reviewed, blood cell count of 6.4, hemoglobin is 11.3, d-dimer is 0.53, electrolytes and renal profile are within normal limits. Pro calcitonin level was 0.70, urinalysis showed 4+ glucose, trace ketones but no evidence of urinary tract infection. Blood cultures have been negative Objective - Vital Signs Vital signs: Vital Signs Temp 97.8 F 06/10/21 09:39 Pulse 113 H 06/10/21 09:39 Resp 20 06/10/21 09:39 BP 117/76 06/10/21 09:39 Pulse Ox 97 06/10/21 09:39 Intake & Output 06/09/21 06/10/21 06/10/21 18:59 06:59 18:59 Intake Total 600 240 Balance 600 240 Weight 72.575 kg Intake: Intake, IV Titration 600 Amount Sodium Chloride 0.9% 1, 600 000 ml @ 75 mls/hr IV . [id number] [facility] Rx#:[id number] Oral 240 Other: Voiding Method Toilet # Bowel Movements 0 - Exam GENERAL EXAM: Alert, very pleasant, 36-year-old -[place]ian female currently on room air with pulse ox of 97%, comfortable in no apparent distress. She has a manager drug safety at the bedside for safety precautions, she is fairly cooperative but gets up unassisted. HEAD: Normocephalic/atraumatic. EYES: Normal reaction of pupils, equal size. Conjunctiva pink, sclera white. NOSE: Clear with pink turbinates. THROAT: No erythema or exudates. NECK: No masses, no JVD, no thyroid enlargement, no adenopathy. CHEST: No chest wall deformity. Symmetrical expansion. LUNGS: Equal air entry with basilar crackles CVS: Regular rate and rhythm, normal S1 and S2, no gallops, no murmurs, no rubs ABDOMEN: Soft, nontender. No hepatosplenomegaly, normal bowel sounds, no guarding or rigidity. EXTREMITIES: No clubbing, no edema, no cyanosis, 2+ pulses and upper and lower extremities. MUSCULOSKELETAL: Muscle strength and tone normal. SPINE: No scoliosis or deformity SKIN: No rashes CENTRAL NERVOUS SYSTEM: Alert and oriented -3. No focal deficits, tone is normal in all 4 extremities. PSYCHIATRIC: Alert and oriented -3. Appropriate affect. Intact judgment and insight. - Labs CBC & Chem 7: 06/10/21 06:58 06/10/21 06:58 Labs: Abnormal Lab Results - Last 24 Hours (Table) 06/09/21 06/09/21 06/09/21 Range/Units 07:44 16:36 16:57 RBC (3.80-5.40) m/uL Hgb (11.4-16.0) gm/dL Glucose (74-99) mg/dL POC Glucose (mg/dL) 156 H (75-99) mg/dL C-Reactive Protein (<1.0) mg/dL Procalcitonin 0.70 H (0.02-0.09) ng/mL Urine Glucose (UA) 4+ H (Negative) Urine Ketones Trace H (Negative) 06/09/21 06/10/21 06/10/21 Range/Units 21:37 06:58 06:58 RBC 3.76 L (3.80-5.40) m/uL Hgb 11.3 L (11.4-16.0) gm/dL Glucose 163 H (74-99) mg/dL POC Glucose (mg/dL) 236 H (75-99) mg/dL C-Reactive Protein 9.0 H (<1.0) mg/dL Procalcitonin (0.02-0.09) ng/mL Urine Glucose (UA) (Negative) Urine Ketones (Negative) 06/10/21 06/10/21 Range/Units 09:32 12:30 RBC (3.80-5.40) m/uL Hgb (11.4-16.0) gm/dL Glucose (74-99) mg/dL POC Glucose (mg/dL) 185 H 218 H (75-99) mg/dL C-Reactive Protein (<1.0) mg/dL Procalcitonin (0.02-0.09) ng/mL Urine Glucose (UA) (Negative) Urine Ketones (Negative) Microbiology - Last 24 Hours (Table) 06/09/21 08:30 Blood Culture - Preliminary Blood No Growth after 24 hours 06/09/21 08:25 Blood Culture - Preliminary Blood No Growth after 24 hours Assessment and Plan Plan: Assessment: #1. Acute hypoxic respiratory failure related to acute COVID-19 pneumonia, with onset of symptoms 3-4 days ago, started on Remdesivir on 06/09/2021 #2. History of autism #3. Bipolar disorder #4. Hypertension #5. Hyperlipidemia #6. History of chronic bronchial asthma, unspecified #7. Severe cognitive impairment, and patient is a resident of a [facility] #8. Diabetes mellitus type 2 #9. Previous MRSA infection with multiple postoperative infections underneath her armpits Plan: Clinically patient is stable On room air, maintaining stable O2 sats above 92% Continue Decadron, Lovenox, multivitamins She can be considered for discharge home if cleared by medicine Remdesivir can be stopped early if patient going home I performed a history & physical examination of the patient and discussed their management with my nurse practitioner, Spring Kothari. I reviewed the nurse practitioner's note and agree with the documented findings and plan of care. Lung sounds are positive for diminished breath sounds throughout the lung [place]. The findings and the impression was discussed with the patient. I attest to the documentation by the nurse practitioner. Time with Patient: Less than 30
[2021-06-10] MEDS ORDERED: LORazepam 0.5 MG TAB PO PRN (14:54)
--- NOTE | 2021-06-10 15:02 | P.PN ---
Subjective Progress Note Date: 06/10/21 HISTORY OF PRESENT ILLNESS 36-year-old female with advanced test taken OCD with severe intellectual disability, lives in a detention has been having worsening fever or chills coug h with mild hypoxia for the last 3 days brought to the emergency department at [facility] with a fever of 102 at the time where was seen and evaluated found to have COVID-19 infection by PCR, blood sugar was stable, her white blood cell was 7000, chest x-ray showed bilateral infiltrate correlate with CHF versus diffuse pneumonia most likely sign of COVID-19 pneumonitis. Patient was started on zinc, dexamethasone, vitamin C vitamin D, anticoagulation with Lovenox patient be started on gram-negative coverage for pneumonia will be seen pulmonary probably start an antiviral medication. 06/10: Patient is seen again in the emergency center waiting for a bed on the MedSurg floor. Patient has been able to get up and to the bathroom without assistance. There is a bed alarm on for safety. Patient has been seen by pulmonary medicine and started on Remdesivir treatment and continued on Decadron, Lovenox, vitamin supplements. She has been afebrile, heart rate 113, blood pressure 117/76, pulse ox 97% on room air. Repeat blood work reveals WBC 6.4, hemoglobin 11.3. Electrolytes and renal function are normal. Blood sugars are running between 163 and 236. Blood cultures are no growth at 24 hours 2 specimens. Home diabetic medications will be resumed. REVIEW OF SYSTEMS Constitutional: No fever or chills and tiredness fatigue, patient is nonverbal a nd plan otherwise. EENT: Positive slight congestion in the nose andthroat cavity. Lungs: No shortness of breath cough wheezes. Cardiovascular: Mild palpitation with edema with no chest pain. Abdominal: No nausea vomiting or diarrhea. Genitourinary: Slight worsening incontinence. Musculoskeletal: Nonverbal complaint. Integumentary: Nonverbal no complaint. Neurologic: Nonverbal no complaint. Psychiatric: Nonverbal no complaint. Endocrine: Nonverbal no complaint. PHYSICAL EXAMINATION Gen: This is a 56-year-old lady that intellectual disability does not look in any respiratory distress. HEENT: Slight congestion and sinus cavity and about her throat. NECK: Supple. No JVD. No lymphadenopathy. No thyromegaly. LUNGS: Decreased breath sound bilaterally, rhonchi, no wheezing, no accessory muscle usage, no retractions. HEART: Regular rate and rhythm. No murmur. ABDOMEN: Soft. Bowel sounds are present. No masses. No tenderness. EXTREMITIES: Trace edema with no rash. NEUROLOGICAL: Patient is awake moving her extremity no interaction otherwise not baseline with her intellectual disability. ASSESSMENT AND PLAN 1. COVID-19 pneumonitis. Pulmonary consult appreciated. Patient is continued on Remdesivir treatment and continued on Decadron, Lovenox, vitamin supplements. Tenuous azithromycin and ceftriaxone. 2 hypoxia and shortness of breath. Patient does not require oxygen therapy: Oxygen along with updraft treatment. 3 type 2 diabetes. Patient will be resumed on metformin 1000 mg twice daily, Lantus 20 units at bedtime and 40 units in the morning, continue NovoLog scale, hold Victoza 1.8 mg weekly. 4 hypertension: Remain on Inderal 20 mg twice a day, patient will be started on lisinopril 2.5 mg daily due to diabetes. 5 hyperlipidemia: Has been on atorvastatin 20 mg a day. 6 chronic edema: Has been on Lasix 40 mg daily. 7 atypical seizure and behavioral problem: Patient has been on Depakote total of 2000 mg a day continue medication. 8 bipolar disorders with behavioral issue: Has been on Clozaril 100 mg daily at bedtime along with Luvox 50 mg at bedtime still on Ativan on an as-needed basis along with Depakote. 9 history of asthma: Has been on Singulair along with Ventolin nebulizer. 10 GI prophylaxis: Patient be started on pantoprazole 40 mg a day. 11 DVT prophylaxis: Lovenox subcutaneous will be done. 12. COVID-19 testing. Was positive and patient will be hospitalized in pandemic season. DISCHARGE PLAN May return to [facility] if patient is accepted back with COVID diagnosis Impression and plan of care have been directed as dictated by the signing physician. Eli Brown nurse practitioner acting as scribe for signing physician. Objective - Vital Signs Vital signs: Vital Signs Temp 97.8 F 06/10/21 09:39 Pulse 113 H 06/10/21 09:39 Resp 20 06/10/21 09:39 BP 117/76 06/10/21 09:39 Pulse Ox 97 06/10/21 09:39 Intake & Output 06/09/21 06/10/21 06/10/21 18:59 06:59 18:59 Intake Total 600 240 Balance 600 240 Weight 72.575 kg Intake: Intake, IV Titration 600 Amount Sodium Chloride 0.9% 1, 600 000 ml @ 75 mls/hr IV . [id number] [facility] Rx#:[id number] Oral 240 Other: Voiding Method Toilet # Bowel Movements 0 - Labs CBC & Chem 7: 06/10/21 06:58 06/10/21 06:58 Labs: Abnormal Lab Results - Last 24 Hours (Table) 06/09/21 06/09/21 06/09/21 Range/Units 07:44 16:36 16:57 RBC (3.80-5.40) m/uL Hgb (11.4-16.0) gm/dL Glucose (74-99) mg/dL POC Glucose (mg/dL) 156 H (75-99) mg/dL C-Reactive Protein (<1.0) mg/dL Procalcitonin 0.70 H (0.02-0.09) ng/mL Urine Glucose (UA) 4+ H (Negative) Urine Ketones Trace H (Negative) 06/09/21 06/10/21 06/10/21 Range/Units 21:37 06:58 06:58 RBC 3.76 L (3.80-5.40) m/uL Hgb 11.3 L (11.4-16.0) gm/dL Glucose 163 H (74-99) mg/dL POC Glucose (mg/dL) 236 H (75-99) mg/dL C-Reactive Protein 9.0 H (<1.0) mg/dL Procalcitonin (0.02-0.09) ng/mL Urine Glucose (UA) (Negative) Urine Ketones (Negative) 06/10/21 Range/Units 09:32 RBC (3.80-5.40) m/uL Hgb (11.4-16.0) gm/dL Glucose (74-99) mg/dL POC Glucose (mg/dL) 185 H (75-99) mg/dL C-Reactive Protein (<1.0) mg/dL Procalcitonin (0.02-0.09) ng/mL Urine Glucose (UA) (Negative) Urine Ketones (Negative) Microbiology - Last 24 Hours (Table) 06/09/21 08:30 Blood Culture - Preliminary Blood No Growth after 24 hours 06/09/21 08:25 Blood Culture - Preliminary Blood No Growth after 24 hours
[2021-06-10] MEDS: SODIUM CHLORIDE 0.9% 1,000 ML IV SCH (15:41)
[2021-06-10] MEDS: DIVALPROEX ER 250 MG TAB.ER.24H PO SCH (16:00)
[2021-06-10] MEDS ORDERED: DIVALPROEX ER 250 MG TAB.ER.24H PO SCH (16:00)
[2021-06-10] MEDS ORDERED: INSULIN ASPART (NovoLOG) 100 UNIT/ML VIAL SQ SCH (17:30)
[2021-06-10 17:59] LABS: Glucose,Whole Blood 395 mg/dL (75-99)
[2021-06-10] MEDS ORDERED: INSULIN ASPART (NovoLOG) 100 UNIT/ML VIAL SQ ONE (18:04)
[2021-06-10] MEDS: REMDESIVIR 100 MG in SODIUM CHLORIDE 0.9% 250 ML IVPB SCH (18:26)
[2021-06-10 20:37] LABS: Glucose,Whole Blood 346 mg/dL (75-99)
[2021-06-10] MEDS: MONTELUKAST 10 MG TAB PO SCH (20:54)
[2021-06-10] MEDS: NALTREXONE HCL 50 MG TAB PO SCH (20:54)
[2021-06-10] MEDS: metFORMIN 500 MG TAB PO SCH (20:54)
[2021-06-10] MEDS: INSULIN DETEMIR (LEVEMIR) 100 UNIT/ML SYR SQ SCH (20:55)
[2021-06-10] MEDS: DIVALPROEX ER 500 MG TAB.ER.24H PO SCH (20:55)
[2021-06-10] MEDS: ATORVASTATIN 20 MG TAB PO SCH (20:55)
[2021-06-10] MEDS: GLYCOPYRROLATE 1 MG TAB PO SCH (20:56)
[2021-06-10] MEDS: cloZAPine 100 MG TAB PO SCH (20:56)
[2021-06-10] MEDS: PROPRANOLOL 20 MG TAB PO SCH (21:08)
[2021-06-10] MEDS: ACETAMINOPHEN TAB 325 MG TAB PO PRN (21:17)
[2021-06-11] MEDS: SODIUM CHLORIDE 0.9% 1,000 ML IV SCH ×2 (03:07→17:17)
[2021-06-11] MEDS: ACETAMINOPHEN TAB 325 MG TAB PO PRN (06:29)
[2021-06-11 07:07] LABS: Glucose,Whole Blood 134 mg/dL (75-99)
[2021-06-11] MEDS: LACTOBACILLUS ACIDOPH & BULGAR 1 EACH PACKET PO SCH (08:01)
[2021-06-11] MEDS: DOCUSATE 100 MG CAP PO SCH (08:02)
[2021-06-11] MEDS: LORATADINE 10 MG TAB PO SCH (08:02)
[2021-06-11] MEDS: DEXAMETHASONE SOD PHOSPHATE 10 MG/ML 1 ML VIAL IVP SCH (08:02)
[2021-06-11] MEDS: POTASSIUM CHLORIDE ER 20 MEQ TAB.ER PO SCH (08:02)
[2021-06-11] MEDS: ASCORBIC ACID 500 MG TAB PO SCH (08:02)
[2021-06-11] MEDS: ZINC SULFATE 220 MG CAP PO SCH (08:02)
[2021-06-11] MEDS: INSULIN DETEMIR (LEVEMIR) 100 UNIT/ML SYR SQ SCH ×2 (08:02→21:00)
[2021-06-11] MEDS: CHOLECALCIFEROL 25 MCG (1000 IU) TABLET PO SCH (08:02)
[2021-06-11] MEDS: FUROSEMIDE 40 MG TAB PO SCH (08:02)
[2021-06-11] MEDS: LORazepam 0.5 MG TAB PO SCH (08:02)
[2021-06-11] MEDS: metFORMIN 500 MG TAB PO SCH ×2 (08:02→20:28)
[2021-06-11] MEDS: ENOXAPARIN 40 MG/0.4 ML SYRINGE SQ SCH (08:03)
[2021-06-11] MEDS: DIVALPROEX ER 250 MG TAB.ER.24H PO SCH ×2 (08:03→17:17)
[2021-06-11] MEDS: INSULIN ASPART (NovoLOG) 100 UNIT/ML VIAL SQ SCH ×4 (08:03→20:46)
[2021-06-11] MEDS: PROPRANOLOL 20 MG TAB PO SCH ×2 (08:04→20:28)
[2021-06-11 11:49] LABS: Glucose,Whole Blood 304 mg/dL (75-99)
--- NOTE | 2021-06-11 12:55 | P.PN ---
Subjective Progress Note Date: 06/11/21 Principal diagnosis: COVID-19 infection 36-year-old female patient with past medical history of hypertension, diabetes mellitus type 2, autism, bipolar disorder, cognitive impairment, who lives in a detention, was brought into the hospital on 06/09/2021 with worsening shortness of breath over the last 3-4 days. Patient is prone to pneumonia. On arrival patient's O2 saturation was 83% on room air, and she felt warm to touch. She is very withdrawn, she follows commands easily however her verbal responses are limited. The caregiver stepped outside and her vaccination status for COVID-19 is unknown, she tested positive for COVID-19 in the emergency department. Initially she was placed on 100% nonrebreather mask, subsequently her FiO2 has been weaned down and is down to 2 L of oxygen pulse ox is 96%, she is febrile with a temp of 101.2F. Her chest x-ray shows bilateral diffuse interstitial infiltrates. Reportedly onset of symptoms was 3-4 days ago. Patient was started on azithromycin and Rocephin in the emergency department, she was started on Decadron 6 mg daily, prophylactic Lovenox, she is receiving IV fluids at a rate of 75 ML per hour. She is currently awake and alert, does not appear to be in any acute distress, she is resting comfortably on a gurney in the emergency department. Currently down to 2 L of oxygen sats at 96%. On 06/10/2021 patient seen in follow-up in the emergency department, she still awaiting a bed on medical surgical floor. She is breathing very comfortably, she is awake, follows command, she has limited verbal responses, but appears to be in no acute distress, room air pulse ox is 97%, no fever or chills, vital signs have been stable overnight, remains on Decadron 6 mg daily, she is on COVID-19 vitamins including vitamin C, vitamin D, and zinc. She is on Remdesivir treatment and today is day 2 of treatment. Her labs have been reviewed, blood cell count of 6.4, hemoglobin is 11.3, d-dimer is 0.53, electrolytes and renal profile are within normal limits. Pro calcitonin level was 0.70, urinalysis showed 4+ glucose, trace ketones but no evidence of urinary tract infection. Blood cultures have been negative The patient is seen today 06/11/2021 in follow-up on the regular medical floor. She is currently laying comfortably in bed. Awake and alert in no acute distress. Continues to maintain O2 saturations in the mid 90s on room air. She is febrile. Current temperature 101.1. Hemodynamically stable. Cultures reveal no growth. Blood glucose 134. Continue on vitamin supplements, Decadron, Lovenox. This is day #3 of Remdesivir. Objective - Vital Signs Vital signs: Vital Signs Temp 101.1 F H 06/11/21 11:08 Pulse 100 06/11/21 11:08 Resp 24 06/11/21 11:08 BP 111/74 06/11/21 11:08 Pulse Ox 95 06/11/21 11:08 Intake & Output 06/10/21 06/11/21 06/11/21 18:59 06:59 18:59 Intake Total 1390 Balance 1390 Intake: Intake, IV Titration 1150 Amount Remdesivir 100 mg In 250 Sodium Chloride 0.9% 250 ml @ 250 mls/hr IVPB DAILY@1800 JANAE Rx#: [id number] Sodium Chloride 0.9% 1, 900 000 ml @ 75 mls/hr IV . [id number] JANAE Rx#:[id number] Oral 240 Other: # Voids 5 2 # Bowel Movements 2 0 - Exam GENERAL EXAM: Alert, very pleasant, 36-year-old -[place] female gris anthony on room air with pulse ox of 95%, comfortable in no apparent distress. HEAD: Normocephalic/atraumatic. EYES: Normal reaction of pupils, equal size. Conjunctiva pink, sclera white. NOSE: Clear with pink turbinates. THROAT: No erythema or exudates. NECK: No masses, no JVD, no thyroid enlargement, no adenopathy. CHEST: No chest wall deformity. Symmetrical expansion. LUNGS: Equal air entry with basilar crackles CVS: Regular rate and rhythm, normal S1 and S2, no gallops, no murmurs, no rubs ABDOMEN: Soft, nontender. No hepatosplenomegaly, normal bowel sounds, no guarding or rigidity. EXTREMITIES: No clubbing, no edema, no cyanosis, 2+ pulses and upper and lower extremities. MUSCULOSKELETAL: Muscle strength and tone normal. SPINE: No scoliosis or deformity SKIN: No rashes CENTRAL NERVOUS SYSTEM: No focal deficits, tone is normal in all 4 extremities. PSYCHIATRIC: Appropriate affect. Intact judgment and insight. - Labs CBC & Chem 7: 06/10/21 06:58 06/10/21 06:58 Labs: Abnormal Lab Results - Last 24 Hours (Table) 06/10/21 06/10/21 06/11/21 Range/Units 17:57 20:35 07:05 POC Glucose (mg/dL) 395 H 346 H 134 H (75-99) mg/dL 06/11/21 Range/Units 11:48 POC Glucose (mg/dL) 304 H (75-99) mg/dL Microbiology - Last 24 Hours (Table) 06/09/21 08:30 Blood Culture - Preliminary Blood No Growth after 48 hours 06/09/21 08:25 Blood Culture - Preliminary Blood No Growth after 48 hours Assessment and Plan Assessment: 1 Acute hypoxic respiratory failure related to acute COVID-19 pneumonia, with onset of symptoms 3-4 days ago, started on Remdesivir on 06/09/2021 2 History of autism 3 Bipolar disorder 4 Hypertension 5 Hyperlipidemia 6 History of chronic bronchial asthma, unspecified 7 Severe cognitive impairment, and patient is a resident of a detention 8 Diabetes mellitus type 2 9 Previous MRSA infection with multiple postoperative infections underneath her armpits Plan: The patient was seen and evaluated by Dr. Francisco J Huang from the pulmonary standpoint, on room air Still having fever, obtaining pro-calcitonin Continue Lovenox, Decadron, vitamin supplements Day #3 of Remdesivir We'll continue to follow I, the cosigning physician, performed a history & physical examination of the patient. Lungs sounds with basilar crackles. Maintaining good O2 saturations in the 90s on room air. I discussed the assessment and plan of care with my nurse practitioner, Anabella Harry. I attest to the above note as dictated by her.
[2021-06-11 16:27] LABS: Glucose,Whole Blood 289 mg/dL (75-99)
[2021-06-11] MEDS: REMDESIVIR 100 MG in SODIUM CHLORIDE 0.9% 250 ML IVPB SCH (17:17)
--- NOTE | 2021-06-11 20:24 | P.PN ---
Subjective Progress Note Date: 06/11/21 HISTORY OF PRESENT ILLNESS 36-year-old female with advanced test taken OCD with severe intellectual disability, lives in a fdc has been having worsening fever or chills cou gh with mild hypoxia for the last 3 days brought to the emergency department at [facility] with a fever of 102 at the time where was seen and evaluated found to have COVID-19 infection by PCR, blood sugar was stable, her white blood cell was 7000, chest x-ray showed bilateral infiltrate correlate with CHF versus diffuse pneumonia most likely sign of COVID-19 pneumonitis. Patient was started on zinc, dexamethasone, vitamin C vitamin D, anticoagulation with Lovenox patient be started on gram-negative coverage for pneumonia will be seen pulmonary probably start an antiviral medication. 06/10: Patient is seen again in the emergency center waiting for a bed on the MedSur floor. Patient has been able to get up and to the bathroom without assistance. There is a bed alarm on for safety. Patient has been seen by pulmonary medicine and started on Remdesivir treatment and continued on Decadron, Lovenox, vitamin supplements. She has been afebrile, heart rate 113, blood pressure 117/76, pulse ox 97% on room air. Repeat blood work reveals WBC 6.4, hemoglobin 11.3. Electrolytes and renal function are normal. Blood sugars are running between 163 and 236. Blood cultures are no growth at 24 hours 2 specimens. Home diabetic medications will be resumed. 06/11, patient is seen in medical floor, on room air, not in acute distress, laying comfortably in bed, without any current complaints. She still has a fever T-max of 101, has diminished appetite, receiving remdesivir , day #3. Ulnar following closely, blood pressure stable, systolic between 101-135, heart rate between 91-101 Labs for review, her sugars once between 132-395 on Levemir, 40 units, in the morning which was started today, and 20 units at bedtime, NovoLog scale to be started she is on metformin check A1c, REVIEW OF SYSTEMS Constitutional: No fever or chills and tiredness fatigue, patient is nonverbal and plan otherwise. EENT: Positive slight congestion in the nose andthroat cavity. Lungs: No shortness of breath cough wheezes. Cardiovascular: Mild palpitation with edema with no chest pain. Abdominal: No nausea vomiting or diarrhea. Genitourinary: Slight worsening incontinence. Musculoskeletal: Nonverbal complaint. Integumentary: Nonverbal no complaint. Neurologic: Nonverbal no complaint. Psychiatric: Nonverbal no complaint. Endocrine: Nonverbal no complaint. PHYSICAL EXAMINATION Gen: This is a 56-year-old lady that intellectual disability does not look in any respiratory distress. HEENT: Slight congestion and sinus cavity and about her throat. NECK: Supple. No JVD. No lymphadenopathy. No thyromegaly. LUNGS: Decreased breath sound bilaterally, rhonchi, no wheezing, no accessory muscle usage, no retractions. HEART: Regular rate and rhythm. No murmur. ABDOMEN: Soft. Bowel sounds are present. No masses. No tenderness. EXTREMITIES: Trace edema with no rash. NEUROLOGICAL: Patient is awake moving her extremity no interaction otherwise not baseline with her intellectual disability. ASSESSMENT AND PLAN 1. COVID-19 pneumonitis. Pulmonary consult appreciated. Patient is continued on Remdesivir treatment and continued on Decadron, Lovenox, vitamin supplements. Tenuous azithromycin and ceftriaxone. 2 hypoxia and shortness of breath. Patient does not require oxygen therapy: Oxygen along with updraft treatment. 3 type 2 diabetes. Patient will be resumed on metformin 1000 mg twice daily, Lantus 20 units at bedtime and 40 units in the morning, continue NovoLog scale, hold Victoza 1.8 mg weekly. 4 hypertension: Remain on Inderal 20 mg twice a day, patient will be started on lisinopril 2.5 mg daily due to diabetes. 5 hyperlipidemia: Has been on atorvastatin 20 mg a day. 6 chronic edema: Has been on Lasix 40 mg daily. 7 atypical seizure and behavioral problem: Patient has been on Depakote total of 2000 mg a day continue medication. 8 bipolar disorders with behavioral issue: Has been on Clozaril 100 mg daily at bedtime along with Luvox 50 mg at bedtime still on Ativan on an as-needed basis along with Depakote. 9 history of asthma: Has been on Singulair along with Ventolin nebulizer. 10 GI prophylaxis: Patient be started on pantoprazole 40 mg a day. 11 DVT prophylaxis: Lovenox subcutaneous will be done. 12. COVID-19 testing. Was positive and patient will be hospitalized in pandemic season. DISCHARGE PLAN May return to [facility] if patient is accepted back with COVID diagnosis Objective - Vital Signs Vital signs: Vital Signs Temp 98.5 F 06/11/21 17:50 Pulse 91 06/11/21 17:50 Resp 20 06/11/21 17:50 BP 135/88 06/11/21 17:50 Pulse Ox 94 L 06/11/21 17:50 Intake & Output 06/11/21 06/11/21 06/12/21 06:59 18:59 06:59 Other: # Voids 2 6 # Bowel Movements 0 - Constitutional General appearance: Present: cooperative, no acute distress - EENT Eyes: Present: anicteric sclerae, normal appearance ENT: Present: NA/AT - Respiratory Respiratory: bilateral: CTA, negative: diminished, dullness - Cardiovascular Rhythm: regular Abnormal Heart Sounds: Absent: systolic murmur, diastolic murmur, rub, S3 Gallop, S4 Gallop, click, other - Gastrointestinal General gastrointestinal: Present: normal bowel sounds, soft - Integumentary Integumentary: Present: normal, normal turgor - Neurologic Neurologic: Present: CNII-XII intact - Labs CBC & Chem 7: 06/10/21 06:58 06/10/21 06:58 Labs: Abnormal Lab Results - Last 24 Hours (Table) 06/10/21 06/11/21 06/11/21 Range/Units 20:35 07:05 11:48 POC Glucose (mg/dL) 346 H 134 H 304 H (75-99) mg/dL 06/11/21 Range/Units 16:26 POC Glucose (mg/dL) 289 H (75-99) mg/dL Microbiology - Last 24 Hours (Table) 06/09/21 08:30 Blood Culture - Preliminary Blood No Growth after 48 hours 06/09/21 08:25 Blood Culture - Preliminary Blood No Growth after 48 hours
[2021-06-11] MEDS: cloZAPine 100 MG TAB PO SCH (20:28)
[2021-06-11] MEDS: NALTREXONE HCL 50 MG TAB PO SCH (20:28)
[2021-06-11] MEDS: MONTELUKAST 10 MG TAB PO SCH (20:28)
[2021-06-11] MEDS: ATORVASTATIN 20 MG TAB PO SCH (20:28)
[2021-06-11] MEDS: DIVALPROEX ER 500 MG TAB.ER.24H PO SCH (20:28)
[2021-06-11] MEDS: GLYCOPYRROLATE 1 MG TAB PO SCH (20:28)
[2021-06-11 20:40] LABS: Glucose,Whole Blood 301 mg/dL (75-99)
[2021-06-12] MEDS: SODIUM CHLORIDE 0.9% 1,000 ML IV SCH ×2 (03:23→07:53)
[2021-06-12 07:00] LABS: Glucose,Whole Blood 113 mg/dL (75-99)
[2021-06-12] MEDS: INSULIN ASPART (NovoLOG) 100 UNIT/ML VIAL SQ SCH ×5 (07:41→20:19)
[2021-06-12] MEDS: ENOXAPARIN 40 MG/0.4 ML SYRINGE SQ SCH (07:54)
[2021-06-12] MEDS: DIVALPROEX ER 250 MG TAB.ER.24H PO SCH ×2 (07:54→17:09)
[2021-06-12] MEDS: metFORMIN 500 MG TAB PO SCH ×2 (07:54→20:18)
[2021-06-12] MEDS: INSULIN DETEMIR (LEVEMIR) 100 UNIT/ML SYR SQ SCH ×2 (07:54→20:19)
[2021-06-12] MEDS: ASCORBIC ACID 500 MG TAB PO SCH (07:55)
[2021-06-12] MEDS: LORATADINE 10 MG TAB PO SCH (07:55)
[2021-06-12] MEDS: LORazepam 0.5 MG TAB PO SCH (07:55)
[2021-06-12] MEDS: FUROSEMIDE 40 MG TAB PO SCH (07:55)
[2021-06-12] MEDS: ZINC SULFATE 220 MG CAP PO SCH (07:55)
[2021-06-12] MEDS: POTASSIUM CHLORIDE ER 20 MEQ TAB.ER PO SCH (07:55)
[2021-06-12] MEDS: DOCUSATE 100 MG CAP PO SCH (07:55)
[2021-06-12] MEDS: CHOLECALCIFEROL 25 MCG (1000 IU) TABLET PO SCH (07:55)
[2021-06-12] MEDS: LACTOBACILLUS ACIDOPH & BULGAR 1 EACH PACKET PO SCH (07:56)
[2021-06-12] MEDS: DEXAMETHASONE SOD PHOSPHATE 10 MG/ML 1 ML VIAL IVP SCH (07:56)
[2021-06-12] MEDS: PROPRANOLOL 20 MG TAB PO SCH ×2 (07:56→20:19)
[2021-06-12 11:46] LABS: Glucose,Whole Blood 260 mg/dL (75-99)
--- NOTE | 2021-06-12 12:34 | P.PN ---
Subjective Progress Note Date: 06/12/21 HISTORY OF PRESENT ILLNESS 36-year-old female with advanced test taken OCD with severe intellectual disability, lives in a fci has been having worsening fever or chills cou gh with mild hypoxia for the last 3 days brought to the emergency department at [facility] with a fever of 102 at the time where was seen and evaluated found to have COVID-19 infection by PCR, blood sugar was stable, her white blood cell was 7000, chest x-ray showed bilateral infiltrate correlate with CHF versus diffuse pneumonia most likely sign of COVID-19 pneumonitis. Patient was started on zinc, dexamethasone, vitamin C vitamin D, anticoagulation with Lovenox patient be started on gram-negative coverage for pneumonia will be seen pulmonary probably start an antiviral medication. 06/10: Patient is seen again in the emergency center waiting for a bed on the MedSur floor. Patient has been able to get up and to the bathroom without assistance. There is a bed alarm on for safety. Patient has been seen by pulmonary medicine and started on Remdesivir treatment and continued on Decadron, Lovenox, vitamin supplements. She has been afebrile, heart rate 113, blood pressure 117/76, pulse ox 97% on room air. Repeat blood work reveals WBC 6.4, hemoglobin 11.3. Electrolytes and renal function are normal. Blood sugars are running between 163 and 236. Blood cultures are no growth at 24 hours 2 specimens. Home diabetic medications will be resumed. 06/11, patient is seen in medical floor, on room air, not in acute distress, laying comfortably in bed, without any current complaints. She still has a fever T-max of 101, has diminished appetite, receiving remdesivir , day #3. Ulnar following closely, blood pressure stable, systolic between 101-135, heart rate between 91-101 Labs for review, her sugars once between 132-395 on Levemir, 40 units, in the morning which was started today, and 20 units at bedtime, NovoLog scale to be started she is on metformin check A1c, 06/12, ambulating, to the bathroom, without any new symptoms of lightheadedness and dizziness, patient denies any conversational dyspnea, or dyspnea and exertion, ambulating without assistance. Patient's on room air, today will be her day 4 remdesivir 's are stable, fasting sugars are okay, however preprandial sugars are all high, we'll going to add NovoLog 8 units every breakfast and lunchtime no change in the long-acting insulin on dexamethasone 6 mg IV daily REVIEW OF SYSTEMS Constitutional: No fever or chills and tiredness fatigue, patient is nonverbal and plan otherwise. EENT: Positive slight congestion in the nose andthroat cavity. Lungs: No shortness of breath cough wheezes. Cardiovascular: Mild palpitation with edema with no chest pain. Abdominal: No nausea vomiting or diarrhea. Genitourinary: Slight worsening incontinence. Musculoskeletal: Nonverbal complaint. Integumentary: Nonverbal no complaint. Neurologic: Nonverbal no complaint. Psychiatric: Nonverbal no complaint. Endocrine: Nonverbal no complaint. PHYSICAL EXAMINATION Gen: This is a 56-year-old lady that intellectual disability does not look in any respiratory distress. HEENT: Slight congestion and sinus cavity and about her throat. NECK: Supple. No JVD. No lymphadenopathy. No thyromegaly. LUNGS: Decreased breath sound bilaterally, rhonchi, no wheezing, no accessory muscle usage, no retractions. On room Air HEART: Regular rate and rhythm. No murmur. ABDOMEN: Soft. Bowel sounds are present. No masses. No tenderness. EXTREMITIES: Trace edema with no rash. NEUROLOGICAL: Patient is awake moving her extremity no interaction otherwise not baseline with her intellectual disability. ASSESSMENT AND PLAN 1. COVID-19 pneumonitis. Pulmonary consult appreciated. Patient is continued on Remdesivir treatment and continued on Decadron, Lovenox, vitamin supplements. Tenuous azithromycin and ceftriaxone. 2 hypoxia and shortness of breath. Patient does not require oxygen therapy: Oxygen along with updraft treatment. 3 type 2 diabetes. Patient will be resumed on metformin 1000 mg twice daily, Lantus 20 units at bedtime and 40 units in the morning, continue NovoLog scale, hold Victoza 1.8 mg weekly. 4 hypertension: Remain on Inderal 20 mg twice a day, patient will be started on lisinopril 2.5 mg daily due to diabetes. 5 hyperlipidemia: Has been on atorvastatin 20 mg a day. 6 chronic edema: Has been on Lasix 40 mg daily. 7 atypical seizure and behavioral problem: Patient has been on Depakote total of 2000 mg a day continue medication. 8 bipolar disorders with behavioral issue: Has been on Clozaril 100 mg daily at bedtime along with Luvox 50 mg at bedtime still on Ativan on an as-needed basis along with Depakote. 9 history of asthma: Has been on Singulair along with Ventolin nebulizer. 10 GI prophylaxis: Patient be started on pantoprazole 40 mg a day. 11 DVT prophylaxis: Lovenox subcutaneous will be done. 12. COVID-19 testing. Was positive and patient will be hospitalized in pandemic season. DISCHARGE PLAN May return to [facility] if patient is accepted back with COVID diagnosis Vital Signs Temp 98.5 F 06/12/21 10:00 Pulse 85 06/12/21 10:00 Resp 16 06/12/21 10:00 BP 118/65 06/12/21 10:00 Pulse Ox 91 L 06/12/21 10:00 Intake & Output 06/11/21 06/12/21 06/12/21 18:59 06:59 18:59 Other: # Voids 6 5 # Bowel Movements 1 Laboratory Results WBC 6.4 k/uL (3.8-10.6) 06/10/21 06:58 RBC 3.76 m/uL (3.80-5.40) L 06/10/21 06:58 Hgb 11.3 gm/dL (11.4-16.0) L 06/10/21 06:58 Hct 35.1 % (34.0-46.0) 06/10/21 06:58 MCV 93.5 fL (80.0-100.0) 06/10/21 06:58 MCH 30.1 pg (25.0-35.0) 06/10/21 06:58 MCHC 32.2 g/dL (31.0-37.0) 06/10/21 06:58 RDW 14.9 % (11.5-15.5) 06/10/21 06:58 Plt Count 176 k/uL (150-450) 06/10/21 06:58 MPV 7.8 06/10/21 06:58 Neutrophils % 72 % 06/10/21 06:58 Lymphocytes % 19 % 06/10/21 06:58 Monocytes % 8 % 06/10/21 06:58 Eosinophils % 0 % 06/10/21 06:58 Basophils % 0 % 06/10/21 06:58 Neutrophils # 4.6 k/uL (1.3-7.7) 06/10/21 06:58 Lymphocytes # 1.2 k/uL (1.0-4.8) 06/10/21 06:58 Monocytes # 0.5 k/uL (0-1.0) 06/10/21 06:58 Eosinophils # 0.0 k/uL (0-0.7) 06/10/21 06:58 Basophils # 0.0 k/uL (0-0.2) 06/10/21 06:58 D-Dimer 0.53 mg/L FEU (<0.60) 06/10/21 06:58 Sodium 140 mmol/L (137-145) 06/10/21 06:58 Potassium 4.6 mmol/L (3.5-5.1) 06/10/21 06:58 Chloride 107 mmol/L (98-107) 06/10/21 06:58 Carbon Dioxide 25 mmol/L (22-30) 06/10/21 06:58 Anion Gap 8 mmol/L 06/10/21 06:58 BUN 12 mg/dL (7-17) 06/10/21 06:58 Creatinine 0.69 mg/dL (0.52-1.04) 06/10/21 06:58 Est GFR (CKD-EPI)AfAm >90 (>60 ml/min/1.73 sqM) 06/10/21 06:58 Est GFR (CKD-EPI)NonAf >90 (>60 ml/min/1.73 sqM) 06/10/21 06:58 Glucose 163 mg/dL (74-99) H 06/10/21 06:58 POC Glucose (mg/dL) 260 mg/dL (75-99) H 06/12/21 11:44 POC Glu [employer] [facility] [employer] Jessica Coats 06/12/21 11:44 Plasma Lactic Acid Anil 1.1 mmol/L (0.7-2.0) 06/09/21 07:52 Calcium 9.0 mg/dL (8.4-10.2) 06/10/21 06:58 Total Bilirubin 0.2 mg/dL (0.2-1.3) 06/09/21 07:52 AST 25 U/L (14-36) 06/09/21 07:52 ALT 12 U/L (4-34) 06/09/21 07:52 Alkaline Phosphatase 66 U/L (38-126) 06/09/21 07:52 Lactate Dehydrogenase 603 U/L (313-618) 06/10/21 06:58 C-Reactive Protein 9.0 mg/dL (<1.0) H 06/10/21 06:58 Total Protein 6.7 g/dL (6.3-8.2) 06/09/21 07:52 Albumin 3.2 g/dL (3.5-5.0) L 06/09/21 07:52 Procalcitonin 0.58 ng/mL (0.02-0.09) H 06/10/21 06:58 Urine Color Light Yellow 06/09/21 07:44 Urine Appearance Clear (Clear) 06/09/21 07:44 Urine pH 6.5 (5.0-8.0) 06/09/21 07:44 Ur Specific [place] 1.015 (1.001-1.035) 06/09/21 07:44 Urine Protein Negative (Negative) 06/09/21 07:44 Urine Glucose (UA) 4+ (Negative) H 06/09/21 07:44 Urine Ketones Trace (Negative) H 06/09/21 07:44 Urine Blood Negative (Negative) 06/09/21 07:44 Urine Nitrite Negative (Negative) 06/09/21 07:44 Urine Bilirubin Negative (Negative) 06/09/21 07:44 Urine Urobilinogen <2.0 mg/dL (<2.0) 06/09/21 07:44 Ur Leukocyte Esterase Negative (Negative) 06/09/21 07:44 Urine HCG, Qual Not Detected (Not Detectd) 06/09/21 07:44 Valproic Acid 71.8 ug/mL 06/09/21 07:52 Coronavirus (PCR) Detected (Not Detectd) A 06/09/21 07:52 Objective - Vital Signs Vital signs: Vital Signs Temp 98.5 F 06/12/21 10:00 Pulse 85 06/12/21 10:00 Resp 16 06/12/21 10:00 BP 118/65 06/12/21 10:00 Pulse Ox 91 L 06/12/21 10:00 Intake & Output 06/11/21 06/12/21 06/12/21 18:59 06:59 18:59 Other: # Voids 6 5 # Bowel Movements 1 - Labs CBC & Chem 7: 06/10/21 06:58 06/10/21 06:58 Labs: Abnormal Lab Results - Last 24 Hours (Table) 06/10/21 06/11/21 06/11/21 Range/Units 06:58 16:26 20:38 POC Glucose (mg/dL) 289 H 301 H (75-99) mg/dL Procalcitonin 0.58 H (0.02-0.09) ng/mL 06/12/21 06/12/21 Range/Units 06:59 11:44 POC Glucose (mg/dL) 113 H 260 H (75-99) mg/dL Procalcitonin (0.02-0.09) ng/mL Microbiology - Last 24 Hours (Table) 06/09/21 08:30 Blood Culture - Preliminary Blood No Growth after 72 hours 06/09/21 08:25 Blood Culture - Preliminary Blood No Growth after 72 hours
--- NOTE | 2021-06-12 15:45 | P.PN ---
Subjective Progress Note Date: 06/12/21 Principal diagnosis: COVID-19 infection 36-year-old female patient with past medical history of hypertension, diabetes mellitus type 2, autism, bipolar disorder, cognitive impairment, who lives in a senior living, was brought into the hospital on 06/09/2021 with worsening shortness of breath over the last 3-4 days. Patient is prone to pneumonia. On arrival patient's O2 saturation was 83% on room air, and she felt warm to touch. She is very withdrawn, she follows commands easily however her verbal responses are limited. The caregiver stepped outside and her vaccination status for COVID-19 is unknown, she tested positive for COVID-19 in the emergency department. Initially she was placed on 100% nonrebreather mask, subsequently her FiO2 has been weaned down and is down to 2 L of oxygen pulse ox is 96%, she is febrile with a temp of 101.2F. Her chest x-ray shows bilateral diffuse interstitial infiltrates. Reportedly onset of symptoms was 3-4 days ago. Patient was started on azithromycin and Rocephin in the emergency department, she was started on Decadron 6 mg daily, prophylactic Lovenox, she is receiving IV fluids at a rate of 75 ML per hour. She is currently awake and alert, does not appear to be in any acute distress, she is resting comfortably on a gurney in the emergency department. Currently down to 2 L of oxygen sats at 96%. On 06/10/2021 patient seen in follow-up in the emergency department, she still awaiting a bed on medical surgical floor. She is breathing very comfortably, she is awake, follows command, she has limited verbal responses, but appears to be in no acute distress, room air pulse ox is 97%, no fever or chills, vital signs have been stable overnight, remains on Decadron 6 mg daily, she is on COVID-19 vitamins including vitamin C, vitamin D, and zinc. She is on Remdesivir treatment and today is day 2 of treatment. Her labs have been reviewed, blood cell count of 6.4, hemoglobin is 11.3, d-dimer is 0.53, electrolytes and renal profile are within normal limits. Pro calcitonin level was 0.70, urinalysis showed 4+ glucose, trace ketones but no evidence of urinary tract infection. Blood cultures have been negative The patient is seen today 06/11/2021 in follow-up on the regular medical floor. She is currently laying comfortably in bed. Awake and alert in no acute distress. Continues to maintain O2 saturations in the mid 90s on room air. She is febrile. Current temperature 101.1. Hemodynamically stable. Cultures reveal no growth. Blood glucose 134. Continue on vitamin supplements, Decadron, Lovenox. This is day #3 of Remdesivir. The patient is seen today 06/12/2021 in follow-up on the regular medical floor. Currently sitting up in bed. Having lunch. Awake and alert in no acute distress. Continues to maintain good O2 saturations in the 90s on room air. Afebrile. Blood cultures reveal no growth. Glucose 260. She remains on Decadron, Lovenox, vitamin supplements. This is day #4 of Remdesivir. Objective - Vital Signs Vital signs: Vital Signs Temp 98.5 F 06/12/21 10:00 Pulse 85 06/12/21 10:00 Resp 16 06/12/21 10:00 BP 118/65 06/12/21 10:00 Pulse Ox 91 L 06/12/21 10:00 Intake & Output 06/11/21 06/12/21 06/12/21 18:59 06:59 18:59 Other: # Voids 6 5 # Bowel Movements 1 - Exam GENERAL EXAM: Alert, very pleasant, 36-year-old -[place] female currently on room air with pulse ox of 91%, comfortable in no apparent distress. HEAD: Normocephalic/atraumatic. EYES: Normal reaction of pupils, equal size. Conjunctiva pink, sclera white. NOSE: Clear with pink turbinates. THROAT: No erythema or exudates. NECK: No masses, no JVD, no thyroid enlargement, no adenopathy. CHEST: No chest wall deformity. Symmetrical expansion. LUNGS: Equal air entry with basilar crackles CVS: Regular rate and rhythm, normal S1 and S2, no gallops, no murmurs, no rubs ABDOMEN: Soft, nontender. No hepatosplenomegaly, normal bowel sounds, no guard ing or rigidity. EXTREMITIES: No clubbing, no edema, no cyanosis, 2+ pulses and upper and lower extremities. MUSCULOSKELETAL: Muscle strength and tone normal. SPINE: No scoliosis or deformity SKIN: No rashes CENTRAL NERVOUS SYSTEM: No focal deficits, tone is normal in all 4 extremities. PSYCHIATRIC: Appropriate affect. Intact judgment and insight. - Labs CBC & Chem 7: 06/10/21 06:58 06/10/21 06:58 Labs: Abnormal Lab Results - Last 24 Hours (Table) 06/10/21 06/10/21 06/11/21 Range/Units 06:58 22:34 16:26 POC Glucose (mg/dL) 289 H (75-99) mg/dL Hemoglobin A1c 7.6 H (4.0-6.0) % Procalcitonin 0.58 H (0.02-0.09) ng/mL 06/11/21 06/12/21 06/12/21 Range/Units 20:38 06:59 11:44 POC Glucose (mg/dL) 301 H 113 H 260 H (75-99) mg/dL Hemoglobin A1c (4.0-6.0) % Procalcitonin (0.02-0.09) ng/mL Microbiology - Last 24 Hours (Table) 06/09/21 08:30 Blood Culture - Preliminary Blood No Growth after 72 hours 06/09/21 08:25 Blood Culture - Preliminary Blood No Growth after 72 hours Assessment and Plan Assessment: 1 Acute hypoxic respiratory failure related to acute COVID-19 pneumonia, with onset of symptoms 3-4 days ago, started on Remdesivir on 06/09/2021 2 History of autism 3 Bipolar disorder 4 Hypertension 5 Hyperlipidemia 6 History of chronic bronchial asthma, unspecified 7 Severe cognitive impairment, and patient is a resident of a senior living 8 Diabetes mellitus type 2 9 Previous MRSA infection with multiple postoperative infections underneath her armpits Plan: The patient was seen and evaluated by Dr. Francisco J Huang from the pulmonary standpoint, on room air Continue Lovenox, Decadron, vitamin supplements Day #4 of Remdesivir Probable discharge in a.m. We'll see as needed I, the cosigning physician, performed a history & physical examination of the patient. Lungs sounds with basilar crackles. Maintaining good O2 saturations in the 90s on room air. I discussed the assessment and plan of care with my nurse practitioner, Anabella Harry. I attest to the above note as dictated by her.
[2021-06-12 16:02] VITALS: RESP 18
[2021-06-12 17:04] LABS: Glucose,Whole Blood 319 mg/dL (75-99)
[2021-06-12] MEDS: REMDESIVIR 100 MG in SODIUM CHLORIDE 0.9% 250 ML IVPB SCH (17:08)
[2021-06-12 19:57] LABS: Glucose,Whole Blood 295 mg/dL (75-99)
[2021-06-12] MEDS: DIVALPROEX ER 500 MG TAB.ER.24H PO SCH (20:18)
[2021-06-12] MEDS: NALTREXONE HCL 50 MG TAB PO SCH (20:18)
[2021-06-12] MEDS: GLYCOPYRROLATE 1 MG TAB PO SCH (20:18)
[2021-06-12] MEDS: MONTELUKAST 10 MG TAB PO SCH (20:19)
[2021-06-12] MEDS: cloZAPine 100 MG TAB PO SCH (20:19)
[2021-06-12] MEDS: ATORVASTATIN 20 MG TAB PO SCH (20:19)
[2021-06-13 07:18] LABS: Glucose,Whole Blood 129 mg/dL (75-99)
[2021-06-13] MEDS: INSULIN ASPART (NovoLOG) 100 UNIT/ML VIAL SQ SCH ×3 (07:33→12:59)
[2021-06-13] MEDS: INSULIN DETEMIR (LEVEMIR) 100 UNIT/ML SYR SQ SCH (08:21)
[2021-06-13] MEDS: ENOXAPARIN 40 MG/0.4 ML SYRINGE SQ SCH (08:21)
[2021-06-13] MEDS: SODIUM CHLORIDE 0.9% 1,000 ML IV SCH (08:22)
[2021-06-13] MEDS: DEXAMETHASONE SOD PHOSPHATE 10 MG/ML 1 ML VIAL IVP SCH (08:22)
[2021-06-13] MEDS: LORATADINE 10 MG TAB PO SCH (08:23)
[2021-06-13] MEDS: CHOLECALCIFEROL 25 MCG (1000 IU) TABLET PO SCH (08:23)
[2021-06-13] MEDS: metFORMIN 500 MG TAB PO SCH (08:23)
[2021-06-13] MEDS: DOCUSATE 100 MG CAP PO SCH (08:23)
[2021-06-13] MEDS: ZINC SULFATE 220 MG CAP PO SCH (08:23)
[2021-06-13] MEDS: LORazepam 0.5 MG TAB PO SCH (08:23)
[2021-06-13] MEDS: PROPRANOLOL 20 MG TAB PO SCH (08:23)
[2021-06-13] MEDS: POTASSIUM CHLORIDE ER 20 MEQ TAB.ER PO SCH (08:24)
[2021-06-13] MEDS: LACTOBACILLUS ACIDOPH & BULGAR 1 EACH PACKET PO SCH (08:24)
[2021-06-13] MEDS: FUROSEMIDE 40 MG TAB PO SCH (08:24)
[2021-06-13] MEDS: ASCORBIC ACID 500 MG TAB PO SCH (08:24)
[2021-06-13] MEDS: DIVALPROEX ER 250 MG TAB.ER.24H PO SCH (08:27)
[2021-06-13 09:51] LABS: ALT 15 U/L (4-34); AST 21 U/L (14-36); African American GFR (CKD) >90 (>60 ml/min/1.73 sqM); Albumin 2.7 g/dL (3.5-5.0); Albumin/Globulin Ratio 0.8; Alkaline Phosphatase 67 U/L (38-126); Anion Gap 9 mmol/L; Blood Urea Nitrogen 19 mg/dL (7-17); Calcium 8.7 mg/dL (8.4-10.2); Carbon Dioxide 26 mmol/L (22-30); Chloride 110 mmol/L (98-107); Globulin 3.5 g/dL; Glucose 189 mg/dL (74-99); Non-African American GFR(CKD) >90 (>60 ml/min/1.73 sqM); Potassium 4.5 mmol/L (3.5-5.1); Sodium 145 mmol/L (137-145); Total Bilirubin 0.2 mg/dL (0.2-1.3); Total Protein 6.2 g/dL (6.3-8.2)
--- NOTE | 2021-06-13 09:54 | P.DS ---
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 Patient was started on zinc, dexamethasone, vitamin C vitamin D, anticoagulation with Lovenox patient be started on gram-negative coverage for pneumonia will be seen pulmonary probably start an antiviral medication. 06/10: Patient is seen again in the emergency center waiting for a bed on the [facility] floor. Patient has been able to get up and to the bathroom without assistance. There is a bed alarm on for safety. Patient has been seen by pulmonary medicine and started on Remdesivir treatment and continued on Decadron, Lovenox, vitamin supplements. She has been afebrile, heart rate 113, blood pressure 117/76, pulse ox 97% on room air. Repeat blood work reveals WBC 6.4, hemoglobin 11.3. Electrolytes and renal function are normal. Blood sugars are running between 163 and 236. Blood cultures are no growth at 24 hours 2 specimens. Home diabetic medications will be resumed. 06/11, patient is seen in medical floor, on room air, not in acute distress, laying comfortably in bed, without any current complaints. She still has a fever T-max of 101, has diminished appetite, receiving remdesivir , day #3. Ulnar following closely, blood pressure stable, systolic between 101-135, heart rate between 91-101 Labs for review, her sugars once between 132-395 on Levemir, 40 units, in the morning which was started today, and 20 units at bedtime, NovoLog scale to be started she is on metformin check A1c, 06/12, ambulating, to the bathroom, without any new symptoms of lightheadedness and dizziness, patient denies any conversational dyspnea, or dyspnea and exertion, ambulating without assistance. Patient's on room air, today will be her day 4 remdesivir 's are stable, fasting sugars are okay, however preprandial sugars are all high, we'll going to add NovoLog 8 units every breakfast and lunchtime no change in the long-acting insulin on dexamethasone 6 mg IV daily 06/13: Patient is seen in follow-up today. Patient has no respiratory distress, not requiring oxygen therapy with pulse ox of 95%. She's been afebrile, heart rate 76, blood pressure 106/63. Repeat blood work reveals sodium 145, potassium 4.5, chloride 110, CO2 26, BUN 19 and creatinine 0.63. Blood sugars are running anywhere between 129 and 276. Liver function tests were normal. Patient will be discharged home today in stable condition. DISCHARGE DIAGNOSES 1. COVID-19 pneumonitis. 2 hypoxia and shortness of breath. 3 type 2 diabetes. 4 hypertension: 5 hyperlipidemia: 6 chronic edema 7 atypical seizure and behavioral problem 8 bipolar disorders with behavioral issue 9 history of asthma, mild intermittent . DISCHARGE PLAN May return to [facility] Greater than 35 minutes was utilized and coordinating patient's discharge. Impression and plan of care have been directed as dictated by the signing physician. Eli Brown nurse practitioner acting as scribe for signing physician. Patient Condition at Discharge: Stable Plan - Discharge Summary New Discharge Prescriptions: New Zinc Sulfate [Orazinc] 220 mg PO DAILY #30 cap lisinopriL [Zestril] 2.5 mg PO DAILY #30 tab Dexamethasone [Decadron] 6 mg PO DAILY #5 tablet Ascorbic Acid [Vitamin C] 1,000 mg PO DAILY #30 tab Continue EPINEPHrine (Auto Inject) [Epipen] 0.3 mg IM ONCE PRN PRN Reason: Anaphylaxis Propranolol [Inderal] 20 mg PO BID@0800,2100 Potassium Chloride [Klor-Con 20] 20 meq PO DAILY@0800 Naltrexone HCl [Revia] 100 mg PO HS@2100 medroxyPROGESTERone [Depo-Provera] 150 mg IM Q90D Loratadine [Claritin] 10 mg PO DAILY@0800 LORazepam [Ativan] 0.5 mg PO DAILY@0800 Insulin Glargine [Lantus Vial] 40 unit SQ DAILY@0800 fluvoxaMINE [Luvox] 50 mg PO HS@2100 Furosemide [Lasix] 40 mg PO DAILY@0800 Docusate Sodium [Dok] 100 mg PO DAILY@0800 Divalproex ER [Depakote ER] 1,000 mg PO HS@2100 cloZAPine [Clozaril] 100 mg PO HS@2100 Divalproex ER [Depakote ER] 250 mg PO BID@0800,1600 Ammonium Lactate Cream [Lac-Hydrin 12% Cream] 1 applic TOPICAL DAILY L.acidoph,Paracasei, B.lactis [Probiotic] 1 cap PO DAILY@0800 Albuterol Nebulized [Ventolin Nebulized] 2.5 mg INHALATION RT-Q6H Atorvastatin [Lipitor] 20 mg PO HS@2100 Chlorhexidine Gluconate [Hibiclens] 1 applic TOPICAL DAILY@0800 Cholecalciferol [Vitamin D3 (25 Mcg = 1000 Iu)] 25 mcg PO DAILY@0800 Divalproex ER [Depakote ER] 250 mg PO BID@0800,1600 metFORMIN HCL 1,000 mg PO BID@0800,2100 Albuterol Nebulized [Ventolin Nebulized] 2.5 mg INHALATION RT-Q6H PRN PRN Reason: Shortness Of Breath Glycopyrrolate 1 mg PO HS@2100 Insulin Glargine,Hum.rec.anlog [Lantus Solostar Pen] 20 unit SQ HS@2100 Liraglutide [Victoza 3-Wolfgang] 1.8 mg SQ DAILY@0800 LORazepam [Ativan] 0.5 mg PO DAILY PRN PRN Reason: Severe Agitation Montelukast [Singulair] 10 mg PO HS@2100 Discharge Medication List Ammonium Lactate Cream [Lac-Hydrin 12% Cream] 1 applic TOPICAL DAILY 05/19/19 [History] Divalproex ER [Depakote ER] 1,000 mg PO HS@2100 05/19/19 [History] Divalproex ER [Depakote ER] 250 mg PO BID@0800,1600 05/19/19 [History] Docusate Sodium [Dok] 100 mg PO DAILY@0800 05/19/19 [History] EPINEPHrine (Auto Inject) [Epipen] 0.3 mg IM ONCE PRN 05/19/19 [History] Furosemide [Lasix] 40 mg PO DAILY@0800 05/19/19 [History] Insulin Glargine [Lantus Vial] 40 unit SQ DAILY@0805/19/19 [History] L.acidoph,Paracasei, B.lactis [Probiotic] 1 cap PO DAILY@0805/19/19 [History] LORazepam [Ativan] 0.5 mg PO DAILY@0805/19/19 [History] Loratadine [Claritin] 10 mg PO DAILY@0805/19/19 [History] Naltrexone HCl [Revia] 100 mg PO HS@209905/19/19 [History] Potassium Chloride [Klor-Con 20] 20 meq PO DAILY@0805/19/19 [History] Propranolol [Inderal] 20 mg PO BID@0800,209905/19/19 [History] cloZAPine [Clozaril] 100 mg PO HS@209905/19/19 [History] fluvoxaMINE [Luvox] 50 mg PO HS@209905/19/19 [History] medroxyPROGESTERone [Depo-Provera] 150 mg IM Q90D 05/19/19 [History] Albuterol Nebulized [Ventolin Nebulized] 2.5 mg INHALATION RT-Q6H 06/09/21 [History] Albuterol Nebulized [Ventolin Nebulized] 2.5 mg INHALATION RT-Q6H PRN 06/09/21 [History] Atorvastatin [Lipitor] 20 mg PO HS@209906/09/21 [History] Chlorhexidine Gluconate [Hibiclens] 1 applic TOPICAL DAILY@0806/09/21 [History] Cholecalciferol [Vitamin D3 (25 Mcg = 1000 Iu)] 25 mcg PO DAILY@0806/09/21 [History] Divalproex ER [Depakote ER] 250 mg PO BID@0800,1600 06/09/21 [History] Glycopyrrolate 1 mg PO HS@209906/09/21 [History] Insulin Glargine,Hum.rec.anlog [Lantus Solostar Pen] 20 unit SQ HS@209906/09/21 [History] LORazepam [Ativan] 0.5 mg PO DAILY PRN 06/09/21 [History] Liraglutide [Victoza 3-Wolfgang] 1.8 mg SQ DAILY@0800 06/09/21 [History] Montelukast [Singulair] 10 mg PO HS@2100 06/09/21 [History] metFORMIN HCL 1,000 mg PO BID@0800,2100 06/09/21 [History] Ascorbic Acid [Vitamin C] 1,000 mg PO DAILY #30 tab 06/13/21 [Rx] Dexamethasone [Decadron] 6 mg PO DAILY #5 tablet 06/13/21 [Rx] Zinc Sulfate [Orazinc] 220 mg PO DAILY #30 cap 06/13/21 [Rx] lisinopriL [Zestril] 2.5 mg PO DAILY #30 tab 06/13/21 [Rx] Follow up Appointment(s)/Referral(s): Elvis Marx MD [STAFF PHYSICIAN] - 07/04/21 10:15 am Emeterio Dean MD [REFERRING] - 1 Week (office closed at time of discharge. Please call to schedule appointment ) Patient Instructions/Handouts: Coronavirus Disease 2019 (COVID-19) Activity/Diet/Wound Care/Special Instructions: [facility] was called and asked that they call [facility] to have all new meds transferred. Discharge Disposition: HOME SELF-CARE
[2021-06-13 10:30] VITALS: BP 106/63; PULSE 76; TEMP 98.4
[2021-06-13 11:50] LABS: Glucose,Whole Blood 276 mg/dL (75-99)
== END 2021-06-13 14:19 | disposition home or self-care (01) | DRG 177 ==
LOC: EC 07:31 → 4SSUR 09:46
PROVIDERS: ADMIT Internal Medicine Geriatric Medicine; ATTEND Internal Medicine Geriatric Medicine
PROC: XW033E5 Introduction of Remdesivir Anti-infective into Peripheral Vein, Percutaneous Approach, New Technology Group 5 (ICD-10-PCS; principal; 2021-06-09)
PROC: 3E0333Z Introduction of Anti-inflammatory into Peripheral Vein, Percutaneous Approach (ICD-10-PCS; 2021-06-09)
DX: U07.1 COVID-19 (principal); J12.82 Pneumonia due to coronavirus disease 2019; J96.01 Acute respiratory failure with hypoxia; F72 Severe intellectual disabilities; F84.0 Autistic disorder; E11.9 Type 2 diabetes mellitus without complications; E78.5 Hyperlipidemia, unspecified; F31.9 Bipolar disorder, unspecified; F42.9 Obsessive-compulsive disorder, unspecified; I10 Essential (primary) hypertension; J45.20 Mild intermittent asthma, uncomplicated; R56.9 Unspecified convulsions; Z79.4 Long term (current) use of insulin; Z79.899 Other long term (current) drug therapy; Z86.14 Personal history of Methicillin resistant Staphylococcus aureus infection
CPT/HCPCS: 36415; 71046; 80048; 80053; 80164; 81003; 81025; 83036; 83605; 83615; 84145; 85025; 85379; 86140; 87040; 87635; 99285